=== PATIENT | female | born 1965 | race Caucasian/White ===

== ENCOUNTER 2020-11-14 11:28 | Outpatient (REF) | payer MEDICARE, MEDICAID, SELFPAY ==
[2020-11-14 14:53] LABS: Creatinine Urine 208.64 mg/dL; Protein/Creatinine Ratio, Ur 0.16 (<0.2); Total Protein Urine Random 34 mg/dL (<12)
[2020-11-14 14:54] LABS: Creatinine Urine 205.11 mg/dL; Microalbum/Creatinine Ratio Ur 49.2 ug/mg cr
[2020-11-14 17:03] LABS: Anion Gap 14 (12-20); Blood Urea Nitrogen 15 mg/dL (9-16); Calcium 9.2 mg/dL (8.4-10.2); Carbon Dioxide 29 mmol/L (22-29); Chloride 100 mmol/L (96-108); Estimated Glomerular Filt Rate > 60; Phosphorus 3.8 mg/dL (2.7-4.5); Potassium 4.3 mmol/L (3.3-5.1); Sodium 139 mmol/L (135-145)
[2020-11-14 17:52] LABS: Renal w Reflex Lab Use Only Order verified
== END 2020-11-14 11:29 | disposition home or self-care (01) ==
LOC: HO.HMGCLDS 11:28
PROVIDERS: Visit Provider Internal Medicine Nephrology
DX: I10 Essential (primary) hypertension (principal); F17.200 Nicotine dependence, unspecified, uncomplicated
CPT/HCPCS: 36415; 80051; 82043; 82310; 82565; 84100; 84156; 84520

== ENCOUNTER 2021-05-05 12:44 | Outpatient (REF) | payer MEDICARE, MEDICAID, SELFPAY ==
[2021-05-05 14:14] LABS: Anion Gap 10 (12-20); Blood Urea Nitrogen 16 mg/dL (9-16); Calcium 9.4 mg/dL (8.4-10.2); Carbon Dioxide 32 mmol/L (22-29); Chloride 101 mmol/L (96-108); Estimated Glomerular Filt Rate > 60; Potassium 4.1 mmol/L (3.3-5.1); Sodium 139 mmol/L (135-145)
== END 2021-05-05 12:45 | disposition home or self-care (01) ==
LOC: HO.HMGCLDS 12:44
PROVIDERS: PCP Family Medicine; Visit Provider Internal Medicine Nephrology
DX: I10 Essential (primary) hypertension (principal)
CPT/HCPCS: 36415; 80051; 82310; 82565; 84520

== ENCOUNTER 2022-02-18 14:15 | Outpatient (REF) | payer MEDICARE, MEDICAID, SELFPAY ==
[2022-02-18 16:46] LABS: Anion Gap 13 (12-20); Blood Urea Nitrogen 15 mg/dL (9-16); Calcium 9.5 mg/dL (8.4-10.2); Carbon Dioxide 27 mmol/L (22-29); Chloride 103 mmol/L (96-108); Estimated Glomerular Filt Rate > 60; Potassium 4.2 mmol/L (3.3-5.1); Sodium 139 mmol/L (135-145)
[2022-02-18 17:24] LABS: Creatinine Urine 55.28 mg/dL; Total Protein Urine Random < 7 mg/dL (<12)
== END 2022-02-18 14:16 | disposition home or self-care (01) ==
LOC: HO.HMGCLDS 14:15
PROVIDERS: PCP Family Medicine; Visit Provider Internal Medicine Nephrology
DX: I10 Essential (primary) hypertension (principal)
CPT/HCPCS: 36415; 80051; 82310; 82565; 84156; 84520

== ENCOUNTER 2022-09-14 13:33 | Outpatient (REF) | payer MEDICARE, MEDICAID, SELFPAY ==
[2022-09-14 16:41] LABS: Anion Gap 14 (12-20); Blood Urea Nitrogen 13 mg/dL (9-16); Calcium 9.5 mg/dL (8.4-10.2); Carbon Dioxide 28 mmol/L (22-29); Chloride 102 mmol/L (96-108); Estimated Glomerular Filt Rate > 60; Potassium 4.3 mmol/L (3.3-5.1); Sodium 140 mmol/L (135-145)
== END 2022-09-14 13:34 | disposition home or self-care (01) ==
LOC: HO.HMGCLDS 13:33
PROVIDERS: Visit Provider Internal Medicine Nephrology
DX: I10 Essential (primary) hypertension (principal)
CPT/HCPCS: 36415; 80051; 82310; 82565; 84520

== ENCOUNTER 2022-12-29 12:04 | Day surgery (SDC) | payer MEDICARE, MEDICAID, SELFPAY ==
--- NOTE | 2022-12-28 14:08 | HO.ANESPROP2 ---
Documented by User: Dagmar Cabello NP 12/28/22 14:16 HPI - Anesthesia Eval Consult details Narrative: 57yo F for Upper End[facility] Past Medical History Medical History (Updated 12/28/22 @ 14:10 by Dagmar Cabello NP) Back pain Bipolar disorder CVA (cerebral vascular accident) HTN (hypertension) Migraines Opioid dependence Seasonal allergies Surgical History Surgical History H/O colonoscopy (~2018) Social History Social History Patient Tobacco Use Status: Current everyday Tobacco user Cigarette Packs Per Day: 1 Cigarettes Per Day: 7 Years Smoked: 48 Use of substances other than those prescribed or required for medical reasons: No Are you DNR?: No Advance Directives: No Advance Directives Information Provided: Yes Meds Allergies Allergy/AdvReac Type Severity Reaction Status Date / Time No Known Allergies Allergy Unverified 06/26/20 16:01 [No Known Allergies*] Home Medications Medication Instructions Recorded Confirmed Last Taken Type atorvastatin 80 mg tablet 1 tab PO DAILY 12/28/22 12/28/22 Unknown History mmfbnhtgas-pbijeiyqbhhno-bbyzcfkj 1 cap Q4H 12/28/22 12/28/22 Unknown History 50 mg-325 mg-40 mg capsule diazepam 5 mg tablet 1 tab PO BID PRN Anxiety 12/28/22 12/28/22 Unknown History fluoxetine 20 mg capsule 1 cap PO DAILY 12/28/22 12/28/22 Unknown History fluticasone propionate 50 spray intranasal 12/28/22 12/28/22 Unknown History mcg/actuation nasal spray,suspension gabapentin 300 mg capsule 300 mg PO TID 12/28/22 12/28/22 Unknown History labetalol 200 mg tablet 1 tab PO BID 12/28/22 12/28/22 Unknown History loratadine 10 mg tablet 1 tab PO DAILY 12/28/22 12/28/22 Unknown History spironolactone 25 mg tablet 1 tab PO DAILY 12/28/22 12/28/22 Unknown History Exam Exam Date and Time: December 28, 2022 1409 Assessment and Plan Assessment Anesthesia Assessment: Chart Reviewed Documented by User: Yuly Carrillo MD 12/29/22 14:11 [facility] Past Medical History Medical History (Updated 12/28/22 @ 14:10 by Dagmar Cabello NP) Back pain Bipolar disorder CVA (cerebral vascular accident) HTN (hypertension) Migraines Opioid dependence Seasonal allergies Family History Family history of problems with anesthesia: No Surgical History Surgical History H/O colonoscopy (~2018) History of Problems with Anesthesia: No Social History Social History Patient Tobacco Use Status: Current everyday Tobacco user Cigarette Packs Per Day: 1 Cigarettes Per Day: 7 Years Smoked: 48 Use of substances other than those prescribed or required for medical reasons: No Are you DNR?: No Advance Directives: No Advance Directives Information Provided: Yes Meds Allergies Allergy/AdvReac Type Severity Reaction Status Date / Time No Known Allergies Allergy Unverified 06/26/20 16:01 [No Known Allergies*] Home Medications Medication Instructions Recorded Confirmed Last Taken Type atorvastatin 80 mg tablet 1 tab PO DAILY 12/28/22 12/28/22 Unknown History jpscfoxsff-iazobvwokvvzq-kxxmnzns 1 cap Q4H 12/28/22 12/28/22 Unknown History 50 mg-325 mg-40 mg capsule diazepam 5 mg tablet 1 tab PO BID PRN Anxiety 12/28/22 12/28/22 Unknown History fluoxetine 20 mg capsule 1 cap PO DAILY 12/28/22 12/28/22 Unknown History fluticasone propionate 50 spray intranasal 12/28/22 12/28/22 Unknown History mcg/actuation nasal spray,suspension gabapentin 300 mg capsule 300 mg PO TID 12/28/22 12/28/22 Unknown History labetalol 200 mg tablet 1 tab PO BID 12/28/22 12/28/22 Unknown History loratadine 10 mg tablet 1 tab PO DAILY 12/28/22 12/28/22 Unknown History spironolactone 25 mg tablet 1 tab PO DAILY 12/28/22 12/28/22 Unknown History Exam Airway Mallampati Class: II TM Dist: >3cm Neck ROM: Full Denture: Upper Heart: rr Lungs: cta Assessment and Plan Assessment Anesthesia Assessment: Anesthesia Plan Discussed Final Anesthetic Review Family History of Problems with Anesthesia: No History of Problems with Anesthesia: No NPO: Yes ASA Class: II Final Preanesthetic Review: No Changes in Pt Med Stat, Meds/Allgs Chart Reviewed, Consent Obtained/Reviewed and Anes Risks/Benef Reviewed Patient Risk: Low Procedure Risk: Low Anesthetic Plan Anesthetic Plan: MAC: Disposition: Standard PACU
[2022-12-29 12:47] VITALS: BMI 21.1
[2022-12-29 12:51] VITALS: BP 145/84; PULSE 85; RESP 16; TEMP 36.5; O2SAT 96
[2022-12-29] MEDS: Lactated Ringers 1,000 ML 100 ML IVCONT (13:01)
--- NOTE | 2022-12-29 13:05 | MHC.SHP ---
Pre-Procedural Eval Section A Date of Service: 12/29/22 The patient is an INPATIENT: No Changes since office visit: No Cold of Flu in the past 2 weeks, No New Medical Problems, No Changes in Medication and No Patient answered all questions The History & Physical has been completed within 30 days and I have reviewed it.: Yes Section B Chief Complaint: Epigastric pain,reflux Allergies: Allergies Allergy/AdvReac Type Severity Reaction Status Date / Time No Known Allergies Allergy Unverified 06/26/20 16:01 [No Known Allergies*] Plan I have reviewed the history and physical and performed a pertinent physical examination on my patient. No changes have occurred unless specified. Time Spent With Patient Time: Total time managing care of this patient today ____ minutes.
[2022-12-29 13:30] VITALS: BP 129/73; PULSE 85; RESP 22; TEMP 36.4
[2022-12-29 13:45] VITALS: BP 152/73; PULSE 72; RESP 20; TEMP 36.4; O2SAT 99
--- NOTE | 2022-12-30 00:20 | OP_ITS ---
DATE OF SERVICE: 12/29/2022 SURGEON: Lalo Mcgarry MD INDICATIONS: Epigastric pain and gastroesophageal reflux disease. PREOPERATIVE DIAGNOSIS: POSTOPERATIVE DIAGNOSIS: PROCEDURE PERFORMED: Upper endoscopy with biopsy. ESTIMATED BLOOD LOSS: COMPLICATIONS: ANESTHESIA: Monitored anesthesia care. ASSISTANTS: SPECIMENS: DESCRIPTION OF PROCEDURE: A history and physical was performed. The procedure was performed on 12/29/2022. The risks and benefits of the procedure were explained to the patient. Informed consent was obtained. The patient was placed in the left lateral decubitus position. The Olympus video gastroscope was introduced into the esophagus, stomach, and duodenum. Examination was performed. The scope was removed. She tolerated the procedure well and was returned to the recovery area in stable condition. FINDINGS: Esophagus: The esophagus was normal. There was no esophagitis. Biopsies were obtained from the EG junction. There was a small sliding hiatal hernia. Stomach: The stomach showed linear streaks of erythema consistent with gastritis. Biopsies were obtained from the antrum. Duodenum: There was mild duodenitis involving the 2nd portion. Biopsies were obtained from the 2nd portion. IMPRESSION: Gastritis. RECOMMENDATION: Follow up the biopsy results. MD BABITA Silveira/YEYO / [id number]
== END 2022-12-29 15:39 | disposition home or self-care (01) ==
PROVIDERS: PCP Family Medicine; Visit Provider Internal Medicine Gastroenterology
PROC: 0DJ08ZZ Inspection of Upper Intestinal Tract, Via Natural or Artificial Opening Endoscopic (ICD-10-PCS; CPT 43235; principal; 2022-12-29 13:00)
DX: K21.9 Gastro-esophageal reflux disease without esophagitis (principal); K29.50 Unspecified chronic gastritis without bleeding; K44.9 Diaphragmatic hernia without obstruction or gangrene; I10 Essential (primary) hypertension; F31.9 Bipolar disorder, unspecified; F11.20 Opioid dependence, uncomplicated; J30.2 Other seasonal allergic rhinitis; Z79.51 Long term (current) use of inhaled steroids; Z79.899 Other long term (current) drug therapy; Z86.73 Personal history of transient ischemic attack (TIA), and cerebral infarction without residual deficits; F17.210 Nicotine dependence, cigarettes, uncomplicated
CPT/HCPCS: 43239; 88305; J2250

== ENCOUNTER 2023-05-25 11:06 | Outpatient (REF) | payer MEDICARE, MEDICAID, SELFPAY ==
[2023-05-25 13:40] LABS: Anion Gap 13 (12-20); Blood Urea Nitrogen 14 mg/dL (9-16); Calcium 9.2 mg/dL (8.4-10.2); Carbon Dioxide 27 mmol/L (22-29); Chloride 104 mmol/L (96-108); Estimated Glomerular Filt Rate > 60; Sodium 140 mmol/L (135-145)
== END 2023-05-25 11:07 | disposition home or self-care (01) ==
LOC: HO.HMGCLDS 11:06
PROVIDERS: PCP Family Medicine; Visit Provider Internal Medicine Nephrology
DX: I10 Essential (primary) hypertension (principal)
CPT/HCPCS: 36415; 80051; 82310; 82565; 84520

== ENCOUNTER 2023-10-31 13:23 | Outpatient (REF) | payer MEDICARE, MEDICAID, SELFPAY ==
[2023-10-31 16:40] LABS: Anion Gap 16 (12-20); Blood Urea Nitrogen 12 mg/dL (9-16); Carbon Dioxide 27 mmol/L (22-29); Chloride 102 mmol/L (96-108); Estimated Glomerular Filt Rate > 60; Potassium 3.8 mmol/L (3.3-5.1); Sodium 141 mmol/L (135-145)
== END 2023-10-31 13:24 | disposition home or self-care (01) ==
LOC: HO.HMGCLDS 13:23
PROVIDERS: PCP Family Medicine; Visit Provider Internal Medicine Nephrology
DX: I10 Essential (primary) hypertension (principal)
CPT/HCPCS: 36415; 80051; 82565; 84520

== ENCOUNTER 2023-11-03 09:48 | Emergency (ER) | payer MEDICARE, MEDICAID, SELFPAY ==
--- NOTE | ~2023-11-03 | US_ITS ---
EXAMINATION: US VENOUS ULTRASOUND WITH DOPPLER LOWER EXTREMITY, LEFT CLINICAL INFORMATION: Left leg pain and swelling. COMPARISON: None available. TECHNIQUE: Ultrasound of the deep veins is performed from the hip to the calf with compression sonography and color and pulse Doppler assessment. Spectral analysis with color-flow imaging is performed. FINDINGS: There is normal venous compression and respiratory variation and augmented flow. The visualized common femoral vein, superficial femoral vein, profunda femoral vein, popliteal vein, and the trifurcation region shows no evidence of deep venous thrombosis. If the patient's symptoms persist, followup ultrasound in 5 days 7 days might be of value to exclude proximal propagation from a non-visualized calf vein. US/US venous duplex LE IMPRESSION: No DVT demonstrated in the left lower extremity.
--- NOTE | ~2023-11-03 | US_ITS ---
EXAMINATION: US ARTERIAL DUPLEX LEFT LOWER EXTREMITY CLINICAL INFORMATION: Groin pain COMPARISON: No relevant comparison imaging exams available. TECHNIQUE: Grayscale and duplex Doppler imaging with spectral waveform analysis of left lower extremity arteries is performed. FINDINGS: There is atherosclerotic plaque along the wall of the femoral artery. Common femoral artery has only above baseline monophasic flow pattern, peak systolic velocity of 60 cm/s. This suggests that there is likely hemodynamically significant disease in the iliac vessels above. Profunda femoris artery also demonstrates only above baseline monophasic flow pattern, peak velocity of 75 cm/s. SFA is occluded within the proximal thigh (for example, images 8-9 of 40). The SFA remains occluded in the mid and lower thigh. Proximal to the level of the knee, there is mild reconstitution of flow within the distal SFA with observation of abnormal monophasic flow, peak velocity of 27 cm/s. A collateral vessel supplying this area is visualized. Popliteal artery is occluded proximally, is patent distally, but has severely abnormal monophasic flow. Below the level of the knee, the posterior tibial artery has monophasic, tardus-parvus waveform with peak velocities of 15 cm/s in the proximal leg, 14 cm/s in the mid leg and 9 cm/s in the distal leg. Peroneal artery has severely abnormal monophasic flow, peak velocity of 24 cm/s, 15 cm/s and 10 cm/s in the proximal, mid and distal leg, respectively. US/US arterial duplex LE LT IMPRESSION: There is severe atherosclerotic peripheral vascular disease. Abnormal arterial waveforms are seen throughout the examined extremity, as noted above. The left SFA is occluded in the proximal, mid and distal thigh, although there is some reconstitution of flow in the distal SFA. However, popliteal artery is occluded proximally. Severely abnormal monophasic waveforms with tardus parvus flow detected within posterior tibial and peroneal arteries.
--- NOTE | ~2023-11-03 | XR_ITS ---
EXAMINATION: XR HIP, LEFT CLINICAL INFORMATION: Left groin tenderness COMPARISON: None available. TECHNIQUE: Two views of the left hip and single view of the pelvis. FINDINGS: The right hemipelvis is obscured by medical research scientist projecting over the sacroiliac joint. No fracture. Alignment is anatomic. Hip joint space is maintained. Soft tissues are unremarkable. XR/XR hip LT w PEL1V IMPRESSION: Normal left hip.
[2023-11-03 10:22] VITALS: BP 142/78; PULSE 88; RESP 20; TEMP 37.1; O2SAT 98; BMI 20.8
--- NOTE | 2023-11-03 11:55 | ED.GENADULT ---
HPI - General Adult General Chief complaint: Extremity Injury, Lower Stated complaint: l leg pain swelling quest dvt Time Seen by Provider: 11/03/23 11:33 Source: patient Mode of arrival: ambulatory Limitations: no limitations History of Present Illness HPI narrative: Patient is a 58-year-old female with history of CVA with right-sided deficit presenting to the emergency department with complaint of left groin pain which began suddenly overnight. Patient reports that she attempted to get out of bed in the middle of the night to use the bathroom and was unable to bear weight on her left leg due to the pain. She denies anticoagulation. Reports history of vein stripping in right lower leg in 1993. Feels as though left thigh has swelling. Denies numbness/tingling. Denies fall or other trauma. Of note patient was recently changed from Prozac which she was on for over 20 years to Cymbalta on September 28. She reports GI symptoms related to this, is unsure if this is related to her groin pain. MD complaint: groin pain Onset (ago): hour(s) Location: left Radiation: non-radiation Severity: severe Quality: aching Pain Consistency: constant Relieving factors: rest Exacerbating factors: movement Associated symptoms: denies other symptoms Treatments prior to arrival: other (morphine) Related Data Home Medications Medication Instructions Recorded Confirmed atorvastatin 80 mg tablet 1 tab PO DAILY 12/28/22 12/28/22 lxzfpbufjz-hxfsfmuwpvqeq-wiuhfxwg 1 cap Q4H 12/28/22 12/28/22 50 mg-325 mg-40 mg capsule diazepam 5 mg tablet 1 tab PO BID PRN Anxiety 12/28/22 12/28/22 fluoxetine 20 mg capsule 1 cap PO DAILY 12/28/22 12/28/22 fluticasone propionate 50 spray intranasal 12/28/22 12/28/22 mcg/actuation nasal spray,suspension gabapentin 300 mg capsule 300 mg PO TID 12/28/22 12/28/22 labetalol 200 mg tablet 1 tab PO BID 12/28/22 12/28/22 loratadine 10 mg tablet 1 tab PO DAILY 12/28/22 12/28/22 spironolactone 25 mg tablet 1 tab PO DAILY 12/28/22 12/28/22 Allergies Allergy/AdvReac Type Severity Reaction Status Date / Time No Known Allergies Allergy Verified 11/03/23 10:26 [No Known Allergies*] Review of Systems Review of Systems: As per HPI. Yes all other systems are reviewed and are negative Constitutional: Constitutional: Reports as per HPI [facility] Past Medical History Medical History (Updated 11/03/23 @ 15:32 by Sanna Crouch NP) Bipolar disorder CVA (cerebral vascular accident) Back pain Seasonal allergies Migraines Opioid dependence HTN (hypertension) Surgical History H/O colonoscopy (~2018) Social History Social History Patient Tobacco Use Status: Current everyday Tobacco user Cigarette Packs Per Day: 1 Cigarettes Per Day: 7 Years Smoked: 48 Advance Directives: No Physical Exam ED Vital Signs: Vital Signs - 24 hr 11/03/23 10:22 11/03/23 12:00 11/03/23 14:00 Temperature 98.8 F 97.7 F 98.2 F Pulse Rate 88 80 89 Respiratory Rate 20 17 16 Blood Pressure 142/78 H 154/94 H 153/91 H Pulse Oximetry 98 100 98 Oxygen Delivery Method Room Air Room Air Room Air BMI result Body Mass Index 20.8 Vital signs have been reviewed and appear to be correct. Blood pressure normal. Heart rate normal. Respiratory rate normal. Temperature normal. Oxygen saturation normal. Const General: cooperative, healthy appearing and no acute distress Orientation/consciousness: oriented to person, oriented to place, oriented to time and patient oriented x3 Limitations: no limitations [facility] Head: Yes normocephalic and Yes atraumatic Ears: external ears normal General nose exam: Normal external nose present Face and sinus: Yes face symmetric Mouth: oropharynx normal and moist mucous membranes Throat: Yes uvula midline Eyes Pupils: Equal, round and reactive pupils present Neck Neck: Yes normal visual inspection and Yes supple Resp Effort & Inspection: normal respiratory effort and able to speak in complete sentences Auscultation: clear to auscultation bilaterally Cardio Rate: regular rate Rhythm: regular rhythm Heart sounds: S1 normal heart sound present and S2 normal heart sound present GI Other: 2+ femoral pulses Inspection: Yes normal to inspection and No visible herniation Palpation (GI): Soft to palpation, nontender, no hernias and no masses Auscultation: normoactive bowel sounds Abdomen image: 1. tenderness, no mass, erythema, warmth, 2+ femoral pulse General: Yes no CVA tenderness Back/Spine/Pelvis Back: no CVA tenderness Skin General skin exam: elasticity normal and turgor normal Neuro General: oriented to person, oriented to place, oriented to time, patient oriented x3, tone normal, moves all extremities, Normal light touch and pain sensation, no focal motor deficits, CN's II-XI intact bilaterally and deep tendon reflexes 2+ bilaterally Cranial nerves: Yes Equal, round and reactive pupils present Cognition (Neuro): normal cognition Motor exam (neuro): 5/5 motor strength present throughout, Normal motor muscle tone present throughout and Motor abnormalities not present Extrem General: Yes full ROM, Yes no pedal edema and Yes no calf tenderness Left lower extremity: hip/thigh (no swelling noted to left thigh) Details: normal to inspection and normal ROM and foot Details: vascular exam Details: dorsalis pedis pulse present and posterior tibial pulse present Psych Mental Status: mental status grossly normal Affect: normal affect Thought process: Normal thought process present Medical Decision Making Medical Decision Making [facility] Narrative: Patient is a 58-year-old female with history of CVA with right-sided deficit presenting to the emergency department with complaint of left groin pain which began suddenly overnight. On exam patient is awake, A+Ox3, VS WNL, afebrile, normal neurological exam without focal deficits, physical exam findings as above. Patient noted to be standing in room and was able to ambulate to bathroom. Given reported symptoms and physical exam findings, initial differential includes hip strain, DVT, hip fracture. Labs notable for anemia not at transfusion level, no significant electrolyte abnormalities. Ultrasound notable for no DVT, severe atherosclerotic peripheral vascular disease. No evidence of fracture on x-ray. My interpretation is in agreement with the radiologist's interpretation. Case discussed with Dr. Glass who feels ultrasound findings are chronic and does not feel patient requires any acute treatment today. Will refer patient to Dr. Glass for further outpatient management. Return precautions discussed at bedside. Patient and family verbalized understanding of and agreement with plan. Differential Diagnosis Differential Diagnoses: The differential diagnosis associated with the presentation includes as per [facility] Lab Data [facility] Lab Attestation statement: I reviewed the patient's lab results. As per [facility]. 11/03/23 12:11 11/03/23 12:11 Labs: Lab Results 11/03/23 Range/Units 12:11 WBC 6.3 (4.8-10.8) X10*3/uL RBC 4.65 (4.20-5.50) X10*6/uL Hgb 10.4 L (12.0-16.0) g/dl Hct 35.2 L (37.0-47.0) % MCV 75.7 L (80.0-98.0) fL MCH 22.4 L (27.0-33.0) pg MCHC 29.5 L (31.0-35.0) g/dl RDW 17.6 H (11.0-16.0) % Plt Count 224 (160-400) X10*3/uL MPV 9.0 L (9.4-12.3) fL Immature Gran % (Auto) 0.2 (0.0-0.4) % Neut % (Auto) 70.5 (45-73) % Lymph % (Auto) 18.0 L (20-40) % [place] % (Auto) 9.4 (2-11) % Eos % (Auto) 1.1 (0-4) % Baso % (Auto) 0.8 (0-2) % Lymph # (Auto) 1.1 L (1.2-4.9) X10*3/uL [place] # (Auto) 0.6 (0.1-1.2) X10*3/uL Eos # (Auto) 0.1 (0.0-0.4) X10*3/uL Baso # (Auto) 0.1 (0.0-0.2) X10*3/uL Abs Immat Gran (auto) 0.01 (0.00-0.03) X10*3/uL Absolute Neuts (auto) 4.4 (2.0-8.3) x10*3/uL Absolute Nucleated RBC 0.000 (0.0-0.012) X10*3/uL Nucleated RBC % (auto) 0.0 (0.0-0.2) /100WBC PT 11.2 (11.1-13.3) SEC INR 0.9 (0.9-1.1) Sodium 140 (135-145) mmol/L Potassium 4.0 (3.3-5.1) mmol/L Chloride 103 (96-108) mmol/L Carbon Dioxide 30 H (22-29) mmol/L Anion Gap 11 L (12-20) BUN 15 (9-16) mg/dL Creatinine 0.80 (0.5-1.4) mg/dL Estim Creat Clear Calc 69.0 Estimated GFR > 60 Random Glucose 90 (60-115) mg/dL Calcium 10.1 D (8.4-10.2) mg/dL Total Bilirubin 0.4 (0.0-1.0) mg/dL AST 20 (5-31) U/L ALT 15 (0-31) U/L Alkaline Phosphatase 158 H (39-117) U/L Total Protein 7.5 (6.5-8.0) g/dL Albumin 4.7 (3.5-5.0) g/dL Independent Interpretation I performed an independent interpretation of an: Plain X-Ray and Ultrasound Interpretation: No evidence of DVT, severe athrosclerotic peripheral vascular disease No hip fracture Radiology Impression Discussion of test interpretation with radiology: I have reviewed the radiologist's reading. Radiologist Impression: XR/XR hip LT w PEL1V IMPRESSION: Normal left hip. US/US venous duplex LE LT IMPRESSION: No DVT demonstrated in the left lower extremity. US/US arterial duplex LE LT IMPRESSION: There is severe atherosclerotic peripheral vascular disease. Abnormal arterial waveforms are seen throughout the examined extremity, as noted above. The left SFA is occluded in the proximal, mid and distal thigh, although there is some reconstitution of flow in the distal SFA. However, popliteal artery is occluded proximally. Severely abnormal monophasic waveforms with tardus parvus flow detected within posterior tibial and peroneal arteries. External Record Review External record reviewed: Inpatient record, Office record and Outpatient record Discharge Plan Discharge Clinical Impression: Peripheral vascular disease Patient Disposition: Home, Self-Care Instructions: Peripheral Vascular Disease (ED) Additional Instructions: You were evaluated in the emergency department for left groin pain. Your ultrasound showed evidence of peripheral vascular disease. You are being referred to the Vascular surgeon, please call the office to schedule an appointment. Return to the emergency department if you develop increasing pain, new weakness, numbness, tingling to her leg, change of color in your leg or foot, chest pain, shortness of breath or any other concerning symptoms. Prescriptions: No Action hmpupwesbv-fmdjomjhdcztf-govj 50-325-40 mg Capsule 1 cap Q4H atorvastatin 80 mg tablet 1 tab PO DAILY labetalol 200 mg tablet 1 tab PO BID spironolactone 25 mg tablet 1 tab PO DAILY gabapentin 300 mg Capsule 300 mg PO TID fluoxetine 20 mg capsule 1 cap PO DAILY fluticasone propionate 50 mcg/actuation spray,suspension intranasal loratadine 10 mg tablet 1 tab PO DAILY diazepam 5 mg tablet 1 tab PO BID PRN (Reason: Anxiety) Referrals: Antony Glass MD [Physician] -
[2023-11-03 12:00] VITALS: BP 154/94; PULSE 80; RESP 17; TEMP 36.5; O2SAT 100
[2023-11-03 12:17] LABS: MANUAL DIFF FLAG NO
[2023-11-03 12:19] LABS: Basophils Absolute Auto 0.1 X10*3/uL (0.0-0.2); Basophils Percent Auto 0.8 % (0-2); Eosinophils Absolute Auto 0.1 X10*3/uL (0.0-0.4); Eosinophils Percent Auto 1.1 % (0-4); Hematocrit 35.2 % (37.0-47.0); Hemoglobin 10.4 g/dl (12.0-16.0); Imm Gran Abs Auto 0.01 X10*3/uL (0.00-0.03); Imm Gran Pct Auto 0.2 % (0.0-0.4); Lymphocytes Absolute Auto 1.1 X10*3/uL (1.2-4.9); Mean Corpuscular HGB Conc 29.5 g/dl (31.0-35.0); Mean Corpuscular Hemoglobin 22.4 pg (27.0-33.0); Mean Corpuscular Volume 75.7 fL (80.0-98.0); Monocytes Absolute Auto 0.6 X10*3/uL (0.1-1.2); Monocytes Percent Auto 9.4 % (2-11); Neutrophils Absolute Auto 4.4 x10*3/uL (2.0-8.3); Neutrophils Percent Auto 70.5 % (45-73); Platelet Count 224 X10*3/uL (160-400); Red Blood Count 4.65 X10*6/uL (4.20-5.50); Red Cell Distribution Width 17.6 % (11.0-16.0); White Blood Count 6.3 X10*3/uL (4.8-10.8)
[2023-11-03 12:25] LABS: INTERNATIONAL NORM RATIO 0.9 (0.9-1.1); Prothrombin Time 11.2 SEC (11.1-13.3)
[2023-11-03 12:35] LABS: Alanine Aminotransferase 15 U/L (0-31); Albumin Level 4.7 g/dL (3.5-5.0); Alkaline Phosphatase 158 U/L (39-117); Anion Gap 11 (12-20); Aspartate Amino Transferase 20 U/L (5-31); Bilirubin Total 0.4 mg/dL (0.0-1.0); Blood Urea Nitrogen 15 mg/dL (9-16); Calcium 10.1 mg/dL (8.4-10.2); Carbon Dioxide 30 mmol/L (22-29); Chloride 103 mmol/L (96-108); Estimated Glomerular Filt Rate > 60; Glucose Random 90 mg/dL (60-115); Sodium 140 mmol/L (135-145); Total Protein 7.5 g/dL (6.5-8.0)
[2023-11-03 14:00] VITALS: BP 153/91; PULSE 89; RESP 16; TEMP 36.8; O2SAT 98
[2023-11-03 15:56] VITALS: BP 135/90; PULSE 78; RESP 16; TEMP 36.6; O2SAT 97
== END 2023-11-03 15:59 | disposition home or self-care (01) ==
PROVIDERS: Registered Nurse Emergency; Emergency Provider Emergency Medicine; PCP Family Medicine
DX: R60.0 Localized edema (principal); R10.2 Pelvic and perineal pain; Z86.73 Personal history of transient ischemic attack (TIA), and cerebral infarction without residual deficits; Z79.899 Other long term (current) drug therapy
CPT/HCPCS: 36415; 73502; 80053; 85025; 85610; 93926; 93971; 99284

== ENCOUNTER 2023-11-15 10:52 | Outpatient (AMB) | payer MEDICARE, MEDICAID, SELFPAY ==
[2023-11-15 10:59] VITALS: BMI 20.8
--- NOTE | 2023-11-15 10:59 | MHC.OFFVIS ---
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 Hx of stroke in 2020, lost Right sided function. 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 She actually presented to our emergency room with left-sided leg pain. It had gotten significantly worse over the last year or so. She does have a prior history of a CVA with right-sided deficit. In addition she has lower back pain issues and reports a cyst on her spine as well. At the time of her visit in the ER she had noninvasive arterial testing and was found to have significant peripheral vascular disease. She now presents to us for evaluation. Of note she smokes about a half a pack per day. Prior to that it was up to a pack a day and has been smoking since the age of 10. In addition she is a nondiabetic. She now presents to us for vascular evaluation. Also of note she can walk about a half block at most. [facility] Medical History Bipolar disorder CVA (cerebral vascular accident) Back pain Seasonal allergies Migraines Opioid dependence HTN (hypertension) Surgical History H/O colonoscopy (~2019) Social History Patient Tobacco Use Status: Current everyday Tobacco user Cigarette Packs Per Day: 1 Cigarettes Per Day: 7 Years Smoked: 48 Review of Systems Const All systems reviewed & are unremarkable except as noted in HPI and below Reports no additional complaints ENT Reports Normal hearing present Card Denies chest pain, Denies chest pain at rest, Denies chest pain with activity and Denies pedal edema Resp Denies cough GI Denies abdominal pain Musc Denies abnormal gait, Denies muscle cramps and Denies radiating pain into limb Skin/Breast Denies skin ulcer and Denies wounds Neuro Reports Normal hearing present and Denies abnormal gait Psych Reports no additional complaints Physical Exam Vital Signs: BMI result Body Mass Index 20.8 Const General: cooperative, healthy appearing and comfortable Orientation/consciousness: oriented to person, oriented to place and oriented to time HEENT Head: Yes normal to inspection Neck Neck: Yes normal visual inspection Carotids: no bruits Chest Chest palpation & inspection: normal inspection of the chest Resp Effort & Inspection: normal respiratory effort and able to speak in complete sentences Auscultation: clear to auscultation bilaterally, no crackles, no rales, no rhonchi and no wheezes Cardio Rate: regular rate Rhythm: regular rhythm Heart sounds: S1 normal heart sound present and S2 normal heart sound present Bruits: no carotid bruits Peripheral pulses: Peripheral pulses 2+ throughout GI Inspection: Yes normal to inspection Skin Wounds: no wounds Hair: normal Neuro General: oriented to person, oriented to place and oriented to time Cranial nerves: Yes CN's II-XII intact bilaterally and Yes Normal hearing present Cognition (Neuro): normal cognition Motor exam (neuro): 5/5 motor strength present throughout Extrem Other: venous exam: No significant superficial varicosities or spider telangiectasias, minimal edema General: No clubbing, No cyanosis and No edema Psych Appearance: grossly normal Mental Status: mental status grossly normal Speech and movement: Normal speech and movement present Results Reviewed Results Reviewed: Noninvasive arterial testing dated 11/03/2023 demonstrates left-sided SFA occlusion with reconstitution at the popliteal artery. Severely abnormal monophasic waveforms. Written report and images were reviewed. Assessment & Plan Assessment & Plan (1) PAD (peripheral artery disease): Code(s): I73.9 - Peripheral vascular disease, unspecified Plan: Patient notes leg pain when walking distances. I have discussed the pathophysiology of peripheral vascular disease with the patient. I have also discussed risk factor modification. I have reviewed the patient's arterial testing which reveals left SFA disease. the patient would benefit from a left leg endovascular peripheral angiogram with possible angioplasty, stent, and/or atherectomy. This has been discussed in detail with the patient along with risks, benefits, and complications. This includes but is not limited to bleeding, infection, heart attack, need for emergent surgical repair, limb ischemia, blood vessel damage, bleeding, puncture, kidney injury, bruising, allergic reaction, and skin reaction. The patient demonstrates a clear understanding. We will schedule for the next appropriate time. Thank you for allowing us to assist in this patient's care. Coding Level of Care Code New Pt Level 4 (73400) Diagnoses PAD (peripheral artery disease) I73.9
== END 2023-11-15 12:04 | disposition home or self-care (01) ==
PROVIDERS: PCP Family Medicine; Visit Provider Surgery Vascular Surgery
DX: I73.9 Peripheral vascular disease, unspecified (principal)
CPT/HCPCS: 99204

== ENCOUNTER → 2023-11-15 10:52 | Outpatient (BNVA) | payer MEDICARE, MEDICAID, SELFPAY | PROVIDERS: PCP Family Medicine; Visit Provider Surgery Vascular Surgery | DX: I73.9 Peripheral vascular disease, unspecified (principal) | CPT/HCPCS: 99202 ==

== ENCOUNTER 2023-11-16 07:39 | Day surgery (SDC) | payer MEDICARE, MEDICAID, SELFPAY ==
[2023-11-16] VITALS (9 sets, daily range): BP systolic 148–172; BP diastolic 76–89; PULSE 70–79; RESP 14–16; TEMP 36.4–36.8; O2SAT 98–100; BMI 20.7
--- NOTE | 2023-11-16 11:09 | W.PM.OPN ---
Operative Note Operative Note Date of Service: 11/16/23 Narrative: Angiogram report from [facility] Preoperative diagnosis: Atherosclerosis of left lower extremity with activity limiting claudication Postoperative diagnosis: Same Procedure: 1. Ultrasound-guided right common femoral access 2. Aortogram with left lower extremity runoff 3. Left external iliac stent Surgeon:Antony Glass M.D., FACS, RPVI Associate Director Data & Analytics:None Anesthesia: Local with moderate conscious sedation. Total intraservice moderate sedation time was 36 minutes. I monitored the patient's level of consciousness and physiologic status continuously throughout the procedure. Specimens:none Drains:none Estimated blood loss: Less than 10 ml Implant: Medtronic visi Pro 8 x 17 balloon expandable stent Indications: 58-year-old with significant left leg pain. Upon workup in the emergency room was noted to have significant arterial occlusion. She now presents for endovascular intervention of the left lower extremity. The patient has signed the informed consent after reviewing risks, complications, benefits, and alternatives previously discussed with the patient. The patient was given the opportunity to ask any additional questions or voice any concerns. All questions were answered to the patient's satisfaction. Procedure in detail: Patient was brought to the angiography suite prior to which a time-out was called for patient identification and site verification. Bilateral groins were prepped and draped in the standard surgical fashion. Under ultrasound guidance right common femoral was punctured with micro puncture needle and wire. Subsequently a precision 4 [place] Islander sheath was then placed. Bentson wire was advanced to the level of the aorta. 4 [place]er Flush catheter was brought up and parked at the level of the renal arteries. Aortogram was then undertaken. Catheter was brought down to the level of the iliac bifurcation. Iliacs were subsequently imaged. Catheter was then brought in up and over to the left side profundus femorals. Runoff study was then undertaken. At this time it was recognized that there was a total SFA flush occlusion. There was a highly stenotic area of the left external iliac. At this time 5000 units of systemic heparin was administered. Up and over 6 [place]er sheath was then placed. Once this was accomplished we took multiple orthogonal views. We initially plasty this area with an 8 x 20 balloon. There was residual stenosis. We then placed a visi Pro 8 x 17 balloon expandable stent. Once this was accomplished we brought the catheter back to the ipsilateral side. We exchanged out for a short 6 [place] Islander sheath. Celt 6 [place]er closure device was then deployed. Patient tolerated the procedure well. Returned to recovery with stable vitals. Interpretation of films: 1. Ultrasound demonstrates appropriate femoral puncture. Image of which was saved. 2. Aortogram demonstrates appropriate caliber aorta. Minimal disease. Appropriate take-off of the renals. 3. Iliac images demonstrate no significant disease on right, left external iliac high-grade stenosis 4. Left Leg Common femoral artery: No significant disease Profundus Femoris: No significant disease Superficial femoral artery: Flush occlusion; small reconstitution area at Isidro's canal and occludes again Popliteal artery (p1,p2,p3): Occluded Anterior tibial artery: Reconstitutes via collateral the origin is occluded Peroneal artery: Patent dominant runoff Posterior tibial artery: Patent Dorsalis pedis/plantar arch: Incomplete Conclusion: 1. Successful left external iliac plasty and stent. Will need fem to below-knee tibioperoneal trunk bypass if required 2. Anticoagulation status: Aspirin and Plavix for 6 months This note is constructed using voice recognition software. While every effort has been made to ensure accuracy, station baggage agent errors may have been included. Thank you for allowing me to participate in the care of your patient. Yours sincerely, Antony Glass MD, FACS, R.P.V.I.
[2023-11-16] MEDS: Clopidogrel Bisulfate 300 MG TABLET PO (12:17)
[2023-11-16] MEDS: Acetaminophen 325 MG TABLET 650 MG PO (12:18)
== END 2023-11-16 13:40 | disposition home or self-care (01) ==
PROVIDERS: PCP Family Medicine; Visit Provider Surgery Vascular Surgery
DX: I70.212 Atherosclerosis of native arteries of extremities with intermittent claudication, left leg (principal); I70.92 Chronic total occlusion of artery of the extremities; M79.662 Pain in left lower leg; I69.351 Hemiplegia and hemiparesis following cerebral infarction affecting right dominant side; M54.50 Low back pain, unspecified; I10 Essential (primary) hypertension; F31.9 Bipolar disorder, unspecified; G43.909 Migraine, unspecified, not intractable, without status migrainosus; J30.2 Other seasonal allergic rhinitis; Z79.51 Long term (current) use of inhaled steroids; Z79.899 Other long term (current) drug therapy; F11.20 Opioid dependence, uncomplicated; F17.210 Nicotine dependence, cigarettes, uncomplicated
CPT/HCPCS: 37221; 76937; 99152; 99153; A4364; C1725; C1760; C1769; C1876; C1887; C1894; J0360; J1644; J2250; J2310; J3010; Q9967

== ENCOUNTER → 2023-11-16 07:39 | Outpatient (BNV) | payer MEDICARE, MEDICAID, SELFPAY | PROVIDERS: PCP Family Medicine; Visit Provider Surgery Vascular Surgery | DX: I70.212 Atherosclerosis of native arteries of extremities with intermittent claudication, left leg (principal) | CPT/HCPCS: 37226; 75625; 75710; 76937; 99152 ==

== ENCOUNTER 2023-12-01 13:12 | Outpatient (AMB) | payer MEDICARE, MEDICAID, SELFPAY ==
--- NOTE | 2023-12-01 13:17 | MHC.OFFVIS ---
Intake Intake Visit Reasons: 2 week follow up Left LE angio 11/16/23 Intake Note: 2 week follow up Left LE Angio 11/16/23. Pt states Left Leg feels better minus pain in her ankle. Pt states plavix is not agreeing with her, would like to discuss w/ Accompanied by: Self / Same As Patient Allergies No Known Allergies [No Known Allergies*] Allergy (Verified 12/02/23 11:25) HPI 2 week follow up Left LE angio 11/16/23 HPI Details Very pleasant 58-year-old female presents for follow-up status post endovascular intervention. She underwent endovascular intervention on 11/16/2023. She had undergone left external iliac stent. Now has a pinpoint ulcer in the left Achilles. Now presents for routine postprocedure follow-up. [facility] Medical History Bipolar disorder CVA (cerebral vascular accident) Back pain Seasonal allergies Migraines Opioid dependence HTN (hypertension) Surgical History H/O colonoscopy (~2019) Social History Patient Tobacco Use Status: Current everyday Tobacco user Cigarette Packs Per Day: 1 Cigarettes Per Day: 7 Years Smoked: 48 Review of Systems Const All systems reviewed & are unremarkable except as noted in HPI and below Reports no additional complaints ENT Reports Normal hearing present Card Denies chest pain, Denies chest pain at rest, Denies chest pain with activity and Denies pedal edema Resp Denies cough GI Denies abdominal pain Musc Denies abnormal gait, Denies muscle cramps and Denies radiating pain into limb Skin/Breast Denies skin ulcer and Denies wounds Neuro Reports Normal hearing present and Denies abnormal gait Psych Reports no additional complaints Physical Exam Const General: cooperative, healthy appearing and comfortable Orientation/consciousness: oriented to person, oriented to place and oriented to time HEENT Head: Yes normal to inspection Neck Neck: Yes normal visual inspection Carotids: no bruits Chest Chest palpation & inspection: normal inspection of the chest Resp Effort & Inspection: normal respiratory effort and able to speak in complete sentences Auscultation: clear to auscultation bilaterally, no crackles, no rales, no rhonchi and no wheezes Cardio Rate: regular rate Rhythm: regular rhythm Heart sounds: S1 normal heart sound present and S2 normal heart sound present Bruits: no carotid bruits Peripheral pulses: Peripheral pulses 2+ throughout GI Inspection: Yes normal to inspection Skin Other: Bilateral DP signals Wounds: no wounds Hair: normal Neuro General: oriented to person, oriented to place and oriented to time Cranial nerves: Yes CN's II-XII intact bilaterally and Yes Normal hearing present Cognition (Neuro): normal cognition Motor exam (neuro): 5/5 motor strength present throughout Extrem Other: venous exam: No significant superficial varicosities or spider telangiectasias, minimal edema General: No clubbing, No cyanosis and No edema Psych Appearance: grossly normal Mental Status: mental status grossly normal Speech and movement: Normal speech and movement present Assessment & Plan Assessment & Plan (1) PAD (peripheral artery disease): Comment: 11/16/2023 left external iliac stent Code(s): I73.9 - Peripheral vascular disease, unspecified Plan: In short patient appears to be doing well with the left external iliac stent. She does have significant SFA disease. If the wound continues to not here she will need fem to below-knee tibioperoneal trunk bypass. We will get a 3 month surveillance [facility] to see if she does improve. Thank you for allowing us to assist in her care. If there are any questions or concerns please do not hesitate to contact us. Orders: Orders US arterial duplex LE BI 3 Months I73.9 - Peripheral vascular disease, unspecified Coding Level of Care Code Est Pt Level 4 (14980) Diagnoses PAD (peripheral artery disease) I73.9
== END 2023-12-01 13:33 | disposition home or self-care (01) ==
LOC: HO.HVS 13:15
PROVIDERS: PCP Family Medicine; Visit Provider Surgery Vascular Surgery
DX: I73.9 Peripheral vascular disease, unspecified (principal)
CPT/HCPCS: 99214

== ENCOUNTER → 2023-12-01 13:12 | Outpatient (BNVA) | payer MEDICARE, MEDICAID, SELFPAY | PROVIDERS: PCP Family Medicine; Visit Provider Surgery Vascular Surgery | DX: I73.9 Peripheral vascular disease, unspecified (principal) | CPT/HCPCS: 99212 ==

== ENCOUNTER 2023-12-02 10:53 | Outpatient (AMB) | payer MEDICARE, MEDICAID, SELFPAY ==
--- NOTE | 2023-12-02 11:15 | HO.NEPHOV ---
HPI HPI Comments History of Present Illness Details I would the privilege of seeing Anastasiia in follow-up of her hypertension. She is continuing to smoke. She has history of CVA with deficits which had improved and stable. Recently she has been having peripheral arterial disease needing left external iliac plasty and stenting. She may need fem to below-knee tibioperoneal trunk bypass. She claims to be compliant with her medications. She was wondering whether she can cut back on the dose of her antihypertensives. She does not have any chest pain, shortness of breath, paroxysmal nocturnal dyspnea, orthopnea, pedal edema or urinary symptoms. She denies any orthostatic symptoms. She is on anticoagulation after stent placement. She was wondering whether she has any carotid disease. [facility] Medical History Bipolar disorder CVA (cerebral vascular accident) Back pain Seasonal allergies Migraines Opioid dependence HTN (hypertension) Surgical History H/O colonoscopy (~2018) Social History Patient Tobacco Use Status: Current everyday Tobacco user Cigarette Packs Per Day: 1 Cigarettes Per Day: 7 Years Smoked: 48 Vital Signs 12/02/23 11:21 Height 5 ft 6 in Weight 127 lb BMI 20.5 BP 140/90 H Blood Pressure Location Lt brachial Position Sitting Pulse 74 Pulse Source Pulse Oximeter Pulse Oximetry (%) 99 Oxygen Delivery Method Room Air Physical Exam Vital Signs: Last Vital Signs Pulse 74 12/02/23 11:21 BP 140/90 H 12/02/23 11:21 Pulse Ox 99 12/02/23 11:21 Oxygen Delivery Method Room Air 12/02/23 11:21 BMI result Body Mass Index 20.5 Const General: comfortable and no acute distress Orientation/consciousness: patient oriented x3 HEENT Head: Yes normocephalic Mouth: Normal oral and palatal mucosa present Eyes EOM: EOMs intact bilaterally Neck Neck: Yes supple Resp Auscultation: clear to auscultation bilaterally Cardio Jugular venous distension: no JVD Rate: regular rate GI Palpation (GI): Soft to palpation Auscultation: normal bowel sounds General: Yes no CVA tenderness Back/Spine/Pelvis Back: no CVA tenderness Skin General skin exam: no rashes or lesions noted Neuro General: patient oriented x3 and moves all extremities Extrem General: Yes no pedal edema Assessment & Plan Assessment & Plan (1) HTN (hypertension): Code(s): I10 - Essential (primary) hypertension Qualifiers: Hypertension type: primary hypertension Qualified Code(s): I10 - Essential (primary) hypertension Plan Anastasiia has hypertension close to 30 years. Initially she had issues with hydrochlorothiazide. She claims to have allergy to amlodipine. She has not known to have any low serum potassium, hypercalcemia or thyroid disorders. Her renal functions have been normal. She is known to have vascular disease. She has peripheral arterial disease needing left iliac artery stenting. She also had CVA in the past. She is currently on spironolactone and labetalol which she is tolerating well. She claims to be on a low-sodium diet. She should maintain good hydration. Doppler of renal arteries did not show any significant renal artery stenosis in the past. I did not make any medication changes today. All questions answered. Follow-up appointment given. Coding Level of Care Code Est Pt Level 3 (44364) Diagnoses Primary hypertension I10 Hypertension type: primary hypertension Results Reviewed Nephrology Results: Hgb 10.4 g/dl (12.0-16.0) L 11/03/23 WBC 6.3 X10*3/uL (4.8-10.8) 11/03/23 Plt Count 224 X10*3/uL (160-400) 11/03/23 Sodium 140 mmol/L (135-145) 11/03/23 Potassium 4.0 mmol/L (3.3-5.1) 11/03/23 Chloride 103 mmol/L (96-108) 11/03/23 Carbon Dioxide 30 mmol/L (22-29) H 11/03/23 BUN 15 mg/dL (9-16) 11/03/23 Creatinine 0.80 mg/dL (0.5-1.4) 11/03/23 Calcium 10.1 mg/dL (8.4-10.2) 11/03/23 Urine Creatinine 55.28 mg/dL 02/18/22 Protein/Creatinin Ratio TNP 02/18/22
[2023-12-02 11:21] VITALS: BP 140/90; PULSE 74; O2SAT 99; BMI 20.5
== END 2023-12-02 12:00 | disposition home or self-care (01) ==
PROVIDERS: PCP Family Medicine; Visit Provider Internal Medicine Nephrology
DX: I10 Essential (primary) hypertension (principal)
CPT/HCPCS: 99213

== ENCOUNTER → 2023-12-02 10:53 | Outpatient (BNVA) | payer MEDICARE, MEDICAID, SELFPAY | PROVIDERS: PCP Family Medicine; Visit Provider Internal Medicine Nephrology | DX: I10 Essential (primary) hypertension (principal) | CPT/HCPCS: 99212 ==

== ENCOUNTER 2024-02-22 10:30 | Outpatient (REF) | payer MEDICARE, MEDICAID, SELFPAY ==
[2024-02-22 13:46] LABS: Anion Gap 14 (12-20); Blood Urea Nitrogen 13 mg/dL (9-16); Carbon Dioxide 28 mmol/L (22-29); Chloride 103 mmol/L (96-108); Estimated Glomerular Filt Rate > 60; Potassium 4.4 mmol/L (3.3-5.1); Sodium 141 mmol/L (135-145)
[2024-02-22 14:20] LABS: Creatinine Urine 136.17 mg/dL; Protein/Creatinine Ratio, Ur 0.12 (<0.2); Total Protein Urine Random 16 mg/dL (<12)
== END 2024-02-22 10:31 | disposition home or self-care (01) ==
LOC: HO.HMGCLDS 10:30
PROVIDERS: Visit Provider Internal Medicine Nephrology
DX: I73.9 Peripheral vascular disease, unspecified (principal); I10 Essential (primary) hypertension
CPT/HCPCS: 36415; 80051; 82565; 82570; 84156; 84520

== ENCOUNTER 2024-02-29 13:52 | Outpatient (AMB) | payer MEDICARE, MEDICAID, SELFPAY ==
--- NOTE | 2024-02-29 14:10 | HO.NEPHOV_ITS ---
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 She is continuing to smoke. She has history of CVA with deficits which had improved and stable. Recently she has been having peripheral arterial disease needing left external iliac plasty and stenting. She may need fem to below-knee tibioperoneal trunk bypass. She claims to be compliant with her medications. She does not have any chest pain, shortness of breath, paroxysmal nocturnal dyspnea, orthopnea, pedal edema or urinary symptoms. She denies any orthostatic symptoms. She is on anticoagulation after stent placement. [facility] Medical History Bipolar disorder CVA (cerebral vascular accident) Back pain Seasonal allergies Migraines Opioid dependence HTN (hypertension) Surgical History H/O colonoscopy (~2019) Social History Patient Tobacco Use Status: Current everyday Tobacco user Cigarette Packs Per Day: 1 Cigarettes Per Day: 7 Years Smoked: 48 Physical Exam Vital Signs: Last Vital Signs Pulse 86 02/29/24 14:13 BP 120/82 02/29/24 14:13 Pulse Ox 96 02/29/24 14:13 Oxygen Delivery Method Room Air 02/29/24 14:13 BMI result Body Mass Index 19.7 Const General: comfortable and no acute distress Orientation/consciousness: patient oriented x3 HEENT Head: Yes normocephalic Mouth: Normal oral and palatal mucosa present Eyes EOM: EOMs intact bilaterally Neck Neck: Yes supple Resp Auscultation: clear to auscultation bilaterally Cardio Jugular venous distension: no JVD Rate: regular rate GI Palpation (GI): Soft to palpation Auscultation: normal bowel sounds General: Yes no CVA tenderness Back/Spine/Pelvis Back: no CVA tenderness Skin General skin exam: no rashes or lesions noted Neuro General: patient oriented x3 and moves all extremities Extrem General: Yes no pedal edema Results Reviewed Nephrology Results: Sodium 141 mmol/L (135-145) 02/22/24 Potassium 4.4 mmol/L (3.3-5.1) 02/22/24 Chloride 103 mmol/L (96-108) 02/22/24 Carbon Dioxide 28 mmol/L (22-29) 02/22/24 BUN 13 mg/dL (9-16) 02/22/24 Creatinine 0.82 mg/dL (0.5-1.4) 02/22/24 Calcium 10.1 mg/dL (8.4-10.2) 11/03/23 Urine Creatinine 136.17 mg/dL 02/22/24 Protein/Creatinin Ratio 0.12 (<0.2) 02/22/24 Assessment & Plan Assessment & Plan (1) HTN (hypertension): Code(s): I10 - Essential (primary) hypertension Category: Medical Qualifiers: Hypertension type: primary hypertension Qualified Code(s): I10 - Essential (primary) hypertension Plan Anastasiia has hypertension close to 30 years. Initially she had issues with hydrochlorothiazide. She claims to have allergy to amlodipine. She has not known to have any low serum potassium, hypercalcemia or thyroid disorders. Her renal functions have been normal. She is known to have vascular disease. She has peripheral arterial disease needing left iliac artery stenting. She also had CVA in the past. She is currently on spironolactone and labetalol which she is tolerating well. She claims to be on a low-sodium diet. She should maintain good hydration. Doppler of renal arteries did not show any significant renal artery stenosis in the past. I did not make any medication changes today. All questions answered. Follow-up appointment given. Coding Level of Care Code Est Pt Level 4 (91559) Diagnoses Primary hypertension I10 Hypertension type: primary hypertension
[2024-02-29 14:13] VITALS: BP 120/82; PULSE 86; O2SAT 96; BMI 19.7
== END 2024-02-29 14:37 | disposition home or self-care (01) ==
LOC: HO.HKA 13:52
PROVIDERS: PCP Family Medicine; Visit Provider Internal Medicine Nephrology
DX: I10 Essential (primary) hypertension (principal)
CPT/HCPCS: 99214

== ENCOUNTER → 2024-02-29 13:52 | Outpatient (BNVA) | payer MEDICARE, MEDICAID, SELFPAY | PROVIDERS: PCP Family Medicine; Visit Provider Internal Medicine Nephrology | DX: I10 Essential (primary) hypertension (principal) | CPT/HCPCS: 99212 ==

== ENCOUNTER 2024-03-01 12:43 | Outpatient (REF) | payer MEDICARE, MEDICAID, SELFPAY ==
--- NOTE | ~2024-03-01 | US_ITS ---
EXAMINATION: NONINVASIVE ASSESSMENT OF THE ARTERIES OF BOTH LOWER EXTREMITIES INCLUDING BILATERAL LOWER EXTREMITY DUPLEX. CLINICAL INFORMATION: Left EI stent COMPARISON: None TECHNIQUE: duplex Doppler techniques with wave form analysis and measurement of velocities in the common femoral, profunda femoral, superficial femoral, popliteal, tibial and peroneal arteries. The study was performed only at rest. FINDINGS: RIGHT LEG Common femoral artery: 96 cm/s, monophasic Profunda femoris artery: 107 cm/s, Multiphasic Superficial femoral artery (proximal): occluded Superficial femoral artery (mid): occluded Superficial femoral artery (distal): occluded Proximal Popliteal artery: 276 cm/s, monophasic Mid posterior tibial artery: 28 cm/s, monophasic LEFT LEG: Common femoral artery: 121 cm/s, Multiphasic Profunda femoris artery: 80 cm/s, monophasic Superficial femoral artery (proximal): occluded Superficial femoral artery (mid): occluded Superficial femoral artery (distal): 36 cm/s, monophasic Proximal Popliteal artery: occluded Mid posterior tibial artery: 21 cm/s, monophasic Stent in the left external iliac artery is patent. US/US arterial duplex LE BI IMPRESSION: RIGHT LEG: Occluded SFA with monophasic flow in the popliteal artery. LEFT LEG: Occluded SFA and popliteal arteries with reconstitution distally. Patent stent in the left external iliac artery.
--- NOTE | ~2024-03-01 | US_ITS ---
EXAMINATION: US RETROPERITONEAL LIMITED (AORTA) CLINICAL INFORMATION: Peripheral vascular disease, iliac artery stent. COMPARISON: None available. TECHNIQUE: Fitch-scale, color Doppler and spectral Doppler evaluation of the abdominal aorta. FINDINGS: There is atherosclerotic disease The measurements of the aorta in maximum AP and transverse dimensions respectively are as follows: Proximal: 3.6 x 3.5 cm. Mid: 2.4 x 2.2 cm. Distal: 5.1 x 4.3 cm. PSV: 59.8 cm/s. The measurements of the common iliac arteries in maximum AP and TRV dimensions are as follows: Right Common Iliac Artery: Not measured but appears normal in caliber by visual exam Left Common Iliac Artery: Not measured but appears normal in caliber by visual exam US/US abdominal aortic aneurysm IMPRESSION: Infrarenal abdominal aortic aneurysm measuring 5.1 x 4.3 cm. Based on published guidelines in J Am Paloma Radiol 2013; 10(10):789-794 and J Vasc Surg. 2018; 67:2-77, the recommendation for an abdominal aortic aneurysm with diameter 4.5-5.4 cm is vascular consultation and subsequent follow-up every 6 months.
== END 2024-03-01 12:44 | disposition home or self-care (01) ==
LOC: HO.US 12:43
PROVIDERS: PCP Family Medicine; Visit Provider Surgery Vascular Surgery
DX: I71.40 Abdominal aortic aneurysm, without rupture, unspecified (principal); I70.203 Unspecified atherosclerosis of native arteries of extremities, bilateral legs; Z95.828 Presence of other vascular implants and grafts; I73.9 Peripheral vascular disease, unspecified
CPT/HCPCS: 76706; 93925

== ENCOUNTER 2024-08-09 11:53 | Outpatient (REF) | payer MEDICARE, MEDICAID, SELFPAY ==
[2024-08-09 14:13] LABS: Anion Gap 13 (12-20); Blood Urea Nitrogen 14 mg/dL (9-16); Calcium 9.8 mg/dL (8.4-10.2); Carbon Dioxide 28 mmol/L (22-29); Chloride 102 mmol/L (96-108); Estimated Glomerular Filt Rate > 60; Sodium 139 mmol/L (135-145)
[2024-08-09 14:27] LABS: Creatinine Urine 226.26 mg/dL; Protein/Creatinine Ratio, Ur 0.12 (<0.2); Total Protein Urine Random 27 mg/dL (<12)
== END 2024-08-09 11:54 | disposition home or self-care (01) ==
LOC: HO.HMGCLDS 11:53
PROVIDERS: PCP Family Medicine; Visit Provider Internal Medicine Nephrology
DX: I10 Essential (primary) hypertension (principal)
CPT/HCPCS: 36415; 80051; 82310; 82565; 82570; 84156; 84520

== ENCOUNTER 2024-08-22 11:06 | Outpatient (AMB) | payer MEDICARE, MEDICAID, SELFPAY ==
--- NOTE | 2024-08-22 11:19 | HO.NEPHOV_ITS ---
Vital Signs 08/22/24 11:22 Height 5 ft 6 in Weight 113 lb BMI 18.2 BP 150/90 H Blood Pressure Location Rt brachial Position Sitting Intake Visit Reasons: CKD/ 6 MO FU-LVM Deployment Technician Required: No Accompanied by: Self / Same As Patient Allergies No Known Allergies [No Known Allergies*] Allergy (Verified 08/22/24 11:22) HPI Comments Details: Anastasiia was seen in follow-up of her hypertension. She is continuing to smoke. She has history of CVA with deficits which had improved and stable. She has been having peripheral arterial disease needing left external iliac plasty and stenting. She has a AAA. She may need fem to below-knee tibioperoneal trunk bypass. She claims to be compliant with her medications. She does not have any chest pain, shortness of breath, paroxysmal nocturnal dyspnea, orthopnea, pedal edema or urinary symptoms. She denies any orthostatic symptoms. [facility] Medical History (Updated 08/22/24 @ 11:41 by Raúl Lara MD) Bipolar disorder CVA (cerebral vascular accident) Back pain Seasonal allergies Migraines Opioid dependence HTN (hypertension) Surgical History H/O colonoscopy (~2019) Social History Patient Tobacco Use Status: Current everyday Tobacco user Cigarette Packs Per Day: 1 Cigarettes Per Day: 7 Years Smoked: 48 Review of Systems Const All systems reviewed & are unremarkable except as noted in HPI and below Physical Exam Vital Signs: Last Vital Signs BP 150/90 H 08/22/24 11:22 BMI result Body Mass Index 18.2 Const General: comfortable and no acute distress Orientation/consciousness: patient oriented x3 HEENT Head: Yes normocephalic Mouth: Normal oral and palatal mucosa present Eyes EOM: EOMs intact bilaterally Neck Neck: Yes supple Resp Auscultation: clear to auscultation bilaterally Cardio Jugular venous distension: no JVD Rate: regular rate GI Palpation (GI): Soft to palpation Auscultation: normal bowel sounds General: Yes no CVA tenderness Back/Spine/Pelvis Back: no CVA tenderness Skin General skin exam: no rashes or lesions noted Neuro General: patient oriented x3 and moves all extremities Results Reviewed Nephrology Results: Sodium 139 mmol/L (135-145) 10/31/24 Potassium 4.0 mmol/L (3.3-5.1) 08/09/24 Chloride 102 mmol/L (96-108) 08/09/24 Carbon Dioxide 28 mmol/L (22-29) 08/09/24 BUN 14 mg/dL (9-16) 08/09/24 Creatinine 0.79 mg/dL (0.5-1.4) 08/09/24 Calcium 9.8 mg/dL (8.4-10.2) 08/09/24 Urine Creatinine 226.26 mg/dL 08/09/24 Protein/Creatinin Ratio 0.12 (<0.2) 08/09/24 Assessment & Plan Assessment & Plan (1) AAA (abdominal aortic aneurysm): Code(s): I71.40 - Abdominal aortic aneurysm, without rupture, unspecified Category: Medical Qualifiers: Abdominal aorta location: infrarenal aorta Presence of rupture: without rupture Qualified Code(s): I71.43 - Infrarenal abdominal aortic aneurysm, without rupture (2) Back pain: Code(s): M54.9 - Dorsalgia, unspecified Category: Medical Qualifiers: Back pain laterality: bilateral Back pain location: low back pain Chronicity: chronic Sciatica presence: without sciatica Qualified Code(s): M54.50 - Low back pain, unspecified; G89.29 - Other chronic pain (3) HTN (hypertension): Code(s): I10 - Essential (primary) hypertension Category: Medical Qualifiers: Hypertension type: primary hypertension Qualified Code(s): I10 - Essential (primary) hypertension Plan Anastasiia has hypertension close to 30 years. Initially she had issues with hydrochlorothiazide. She claims to have allergy to amlodipine. She has not known to have any low serum potassium, hypercalcemia or thyroid disorders. Her renal functions have been normal. She is known to have vascular disease. She has peripheral arterial disease needing left iliac artery stenting. She also had CVA in the past. She is currently on spironolactone and labetalol which she is tolerating well. She claims to be on a low-sodium diet. She should maintain good hydration. Doppler of renal arteries did not show any significant renal artery stenosis in the past. I increased her labetalol to 300 mg bid and did not make any other medication changes today. She requested referral to [facility] pain management & vascular surgery. All questions answered. Follow-up appointment given Orders: Referrals Vascular Surgery Referral I71.40 - Abdominal aortic aneurysm, without rupture, unspecified Pain Management Referral M54.9 - Dorsalgia, unspecified Medications: Changed From labetalol 300 mg PO BID To labetalol 300 mg (1.5 x 200 mg) PO BID 90 tabs 4RF Coding Level of Care Code Est Pt Level 4 (78566) Diagnoses Infrarenal abdominal aortic aneurysm (AAA) without rupture I71.43 Abdominal aorta location: infrarenal aorta Presence of rupture: without rupture Chronic bilateral low back pain without sciatica M54.50; G89.29 Back pain laterality: bilateral Back pain location: low back pain Chronicity: chronic Sciatica presence: without sciatica Primary hypertension I10 Hypertension type: primary hypertension
[2024-08-22 11:22] VITALS: BP 150/90; BMI 18.2
== END 2024-08-22 11:52 | disposition home or self-care (01) ==
PROVIDERS: PCP Family Medicine; Visit Provider Internal Medicine Nephrology
DX: I71.43 Infrarenal abdominal aortic aneurysm, without rupture (principal); M54.50 Low back pain, unspecified; G89.29 Other chronic pain; I10 Essential (primary) hypertension
CPT/HCPCS: 99214

== ENCOUNTER → 2024-08-22 11:06 | Outpatient (BNVA) | payer MEDICARE, MEDICAID, SELFPAY | PROVIDERS: PCP Family Medicine; Visit Provider Internal Medicine Nephrology | DX: I10 Essential (primary) hypertension (principal); I71.43 Infrarenal abdominal aortic aneurysm, without rupture; M54.50 Low back pain, unspecified; G89.29 Other chronic pain; Z79.891 Long term (current) use of opiate analgesic | CPT/HCPCS: 99212 ==

== ENCOUNTER 2024-09-12 10:46 | Outpatient (AMB) | payer MEDICARE, MEDICAID, SELFPAY ==
--- NOTE | 2024-09-12 10:58 | HO.NEPHOV ---
Vital Signs 09/12/24 11:01 Height 5 ft 6 in Weight 113 lb BMI 18.2 BP 150/92 H Blood Pressure Location Lt brachial Position Sitting Intake Visit Reasons: 2wk follow up-no labs/ Conf Geophysical Support Specialist Required: No Accompanied by: Self / Same As Patient Allergies No Known Allergies [No Known Allergies*] Allergy (Verified 09/12/24 11:00) HPI Comments Details: Anastasiia was seen in follow-up of her hypertension. She is continuing to smoke. She has history of CVA with deficits which had improved and stable. She has been having peripheral arterial disease needing left external iliac plasty and stenting. She has a AAA. She may need fem to below-knee tibioperoneal trunk bypass. She claims to be compliant with her medications. She does not have any chest pain, shortness of breath, paroxysmal nocturnal dyspnea, orthopnea, pedal edema or urinary symptoms. She denies any orthostatic symptoms. She wants her labetalol changed as she feels its not working for her [facility] Medical History (Updated 08/22/24 @ 11:41 by Raúl Lara MD) Bipolar disorder CVA (cerebral vascular accident) Back pain Seasonal allergies Migraines Opioid dependence HTN (hypertension) Surgical History H/O colonoscopy (~2019) Social History Patient Tobacco Use Status: Current everyday Tobacco user Cigarette Packs Per Day: 1 Cigarettes Per Day: 7 Years Smoked: 48 Review of Systems Const All systems reviewed & are unremarkable except as noted in HPI and below Physical Exam Const General: comfortable and no acute distress Orientation/consciousness: patient oriented x3 HEENT Head: Yes normocephalic Mouth: Normal oral and palatal mucosa present Eyes EOM: EOMs intact bilaterally Neck Neck: Yes supple Resp Auscultation: clear to auscultation bilaterally Cardio Jugular venous distension: no JVD Rate: regular rate GI Palpation (GI): Soft to palpation Auscultation: normal bowel sounds General: Yes no CVA tenderness Back/Spine/Pelvis Back: no CVA tenderness Skin General skin exam: no rashes or lesions noted Neuro General: patient oriented x3 and moves all extremities Extrem General: Yes no pedal edema Results Reviewed Nephrology Results: Sodium 139 mmol/L (135-145) 10/31/24 Potassium 4.0 mmol/L (3.3-5.1) 08/09/24 Chloride 102 mmol/L (96-108) 08/09/24 Carbon Dioxide 28 mmol/L (22-29) 08/09/24 BUN 14 mg/dL (9-16) 08/09/24 Creatinine 0.79 mg/dL (0.5-1.4) 08/09/24 Calcium 9.8 mg/dL (8.4-10.2) 08/09/24 Urine Creatinine 226.26 mg/dL 08/09/24 Protein/Creatinin Ratio 0.12 (<0.2) 08/09/24 Assessment & Plan Assessment & Plan (1) HTN (hypertension): Code(s): I10 - Essential (primary) hypertension Category: Medical Qualifiers: Hypertension type: primary hypertension Qualified Code(s): I10 - Essential (primary) hypertension Plan Anastasiia has hypertension close to 30 years. She had issues with hydrochlorothiazide. She claims to have allergy to amlodipine. She has not known to have any low serum potassium, hypercalcemia or thyroid disorders. Her renal functions have been normal. She is known to have vascular disease. She has peripheral arterial disease needing left iliac artery stenting. She also had CVA in the past. She is currently on spironolactone which I may increase to 50 mg at next vsiit. She wanted labetalol chnaged and so was initiated on carvedilol 25 mg bid. She claims to be on a low-sodium diet. She should maintain good hydration. Doppler of renal arteries did not show any significant renal artery stenosis in the past. All questions answered. Follow-up appointment given Medications: New carvedilol must administer with a meal/food 25 mg PO BID 90 days 180 tabs 4RF Discontinued labetalol Discontinued Reason: Doctor's Order 300 mg (1.5 x 200 mg) PO BID 90 tabs 4RF Coding Level of Care Code Est Pt Level 4 (44786) Diagnoses Primary hypertension I10 Hypertension type: primary hypertension
[2024-09-12 11:01] VITALS: BP 150/92; BMI 18.2
--- OUTSIDE RECORDS SUMMARY | 2024-09-18 17:45 | XMS_ITS | Continuity of Care Document ---
Author Organization [facility] Address [address] [place] [address] [address] [place] [address] Phone Care Team Providers Care Highway Patrol Officer Name Role Phone Clinton Bundy MD, FACS, RVT Unavailable Unavailable Advance Directives Directive Yes / No Effective Date File Name No Information Encounters Encounter Description Practice Location Reason(s) For Visit Diagnoses Date Provider Providers Copied on Encounter [facility], [address] [facility] [address], [place], [id number], tel:[phone] [address] [facility] No Information Arsenio CAMPOS FACS EDGAR Melendez. [address] [address], [place], [address], [place]. tel:[phone] Referring Provider: Max Andrews MD R, [address] [place] [address], [address]. tel:[phone] Family History Family Member Type Diagnosis Age At Onset No Information Payers Payer name Insurance type Covered libertarian ID Authoriza tion(s) No Information Social History Type Description Quantity Date Captured Comments Sex Female Smoking Status No Information Chief Complaint And Reason For Visit No Information Reason For Referral Reason For Referral No Information History Of Present Illness Encounter Date Complaint History Of Prese nt Illness No Information Functional Status Date Functional Assessmen t No Information Instructions Date Instruction Additional Infor mation No Information Assessments Type Assessment Date No Information Patient Care Teams Name Effective Dates (start - stop) Status Members No Information
== END 2024-09-12 11:29 | disposition home or self-care (01) ==
PROVIDERS: PCP Family Medicine; Visit Provider Internal Medicine Nephrology
DX: I10 Essential (primary) hypertension (principal)
CPT/HCPCS: 99214

== ENCOUNTER → 2024-09-12 10:46 | Outpatient (BNVA) | payer MEDICARE, MEDICAID, SELFPAY | PROVIDERS: PCP Family Medicine; Visit Provider Internal Medicine Nephrology | DX: I10 Essential (primary) hypertension (principal); F17.210 Nicotine dependence, cigarettes, uncomplicated | CPT/HCPCS: 99212 ==

== ENCOUNTER 2024-09-26 13:53 | Outpatient (AMB) | payer MEDICARE, MEDICAID, SELFPAY ==
--- NOTE | 2024-09-26 13:56 | MHC.OFFVIS ---
Vital Signs 09/26/24 13:58 Height 5 ft 6 in Weight 112 lb BMI 18.1 BP 159/83 H Blood Pressure Location Lt brachial Position Sitting Respiration 15 Pulse 81 Pulse Source Pulse Oximeter Pulse Oximetry (%) 97 Oxygen Delivery Method Room Air Intake Visit Reasons: Dorsalgia, unspecified/karina from 09/13 Allergies No Known Allergies [No Known Allergies*] Allergy (Verified 09/26/24 13:59) Medication List - Last Reconciled 09/26/24 by Meryl Vidales LPN aspirin 81 mg PO DAILY atorvastatin 40 mg PO DAILY uqzlbbjyhn-[id number] 50-325-40 mg 1 cap Q4H carvedilol 25 mg PO BID 90 days cholecalciferol (vitamin D3) 1,250 mcg PO QWEEK fluoxetine 20 mg PO DAILY spironolactone 1 tab PO DAILY HPI Comments Details: Anastasiia is very pleasant 58 years old female who presents in my office with the intention to establish a relationship for further management of her intrathecal pain pump. She reported that in the past she was suffering from lower back pain with radiation to bilateral lower extremities. She never had any surgery in the back. She does not have any images of her lumbar spine available for me. Briefly she mentioned about presence of some sort of a cyst the lumbar spine. Her intrathecal pain pump was 1st established in 10/27/2017 it was implanted by Dr. Mikayla oCtton. Dr. Malave interventional radiology was continuing to refill this pain pump. Recently the intrathecal pain pump was filled up by Dr. Malave. She is currently under observation of Nephrology with intractable hypertension which is difficult to treat however her creatinine is normal. She is also suffering from multiple vascular problems she has abdominal aortic aneurysm and she is under observation of Dr. Glass she had several stents in left external iliac artery she also is needed below the knee tibioperoneal trunk bypass. The consultation for this procedure scheduled with Dr. Glass on October 25, 2024. He is also a victim of the stroke he has under observation of primary care physician she improved after the stroke and she reports that deficits improved and stable. According to the note patient is smoking cigarettes 1 pack per day or 7 cigarettes per day she has smoke for 48 years. [facility] Medical History (Updated 09/26/24 @ 14:38 by Keenan Sanchez MD) Bipolar disorder CVA (cerebral vascular accident) Back pain Seasonal allergies Migraines Opioid dependence HTN (hypertension) Surgical History H/O colonoscopy (~2019) Social History Patient Tobacco Use Status: Current everyday Tobacco user Cigarette Packs Per Day: 1 Cigarettes Per Day: 7 Years Smoked: 48 Review of Systems Const All systems reviewed & are unremarkable except as noted in HPI and below ENT Reports Normal hearing present Neuro Reports Normal hearing present, Denies Abnormal speech present and Denies Sensory deficit (Neuro) Physical Exam Vital Signs: Last Vital Signs Pulse 81 09/26/24 13:58 Resp 15 09/26/24 13:58 BP 159/83 H 09/26/24 13:58 Pulse Ox 97 09/26/24 13:58 Oxygen Delivery Method Room Air 09/26/24 13:58 BMI result Body Mass Index 18.1 Const General: no acute distress Nutritional Appearance: thin Orientation/consciousness: patient oriented x3 Eyes General: appearance normal, both eyes and all related structures Pupils: Equal, round and reactive pupils present EOM: EOMs intact bilaterally Neck Neck: Yes full ROM Chest Chest palpation & inspection: normal inspection of the chest Resp Effort & Inspection: normal respiratory effort, able to speak in complete sentences, normal respiratory pattern, no audible wheezes and no cough Cardio Jugular venous distension: no JVD GI Inspection: Yes normal to inspection Back/Spine/Pelvis Other: On inspection there is the pain pump in the right lower abdomen the scar is very well-healed the pump with 20 cc by volume according to the [employer] report. She receives continuous 1.651 mg a day in the pain pump the concentration of morphine is 20 milligrams/mL. She is also prescribed PTM doses as morphine 0.15 mg on demand 2 boluses a day 4 hours apart. The patient states that she does not use her PTM machine because it makes her sick and also make her obtunded and sleepy. Neuro General: patient oriented x3 and gait normal Cranial nerves: Yes CN's II-XII intact bilaterally, Yes Equal, round and reactive pupils present, Yes Normal hearing present and Yes Ability to bilaterally elevate shoulders present Speech: No Abnormal speech present Gait exam (Neuro): Normal gait present Motor exam (neuro): 5/5 motor strength present throughout Sensory Exam: No Sensory deficit (Neuro) Extrem General: No pedal edema Psych Speech and movement: Normal speech and movement present Affect: normal affect Attitude: cooperative Thought process: Normal thought process present Thought content: Normal thought content present Insight: Good insight present (Psych) Judgement: Good judgement present (Psych) Assessment & Plan Assessment & Plan (1) Chronic pain syndrome: Code(s): G89.4 - Chronic pain syndrome Category: Medical (2) Implantable intrathecal infusion pump present: Code(s): Z96.89 - Presence of other specified functional implants Category: Medical Plan We agreed that the patient will sign medical information release note and we will send this note to Dr. Whaley to obtain information for what specific conditions she was implanted critical pain pump because patient is not very good historian and can not describe to us what was the reason of pump implantation. I also will decrease the concentration of the medications to 10 mg per mL it is very concentrated medication in her pain pump. I will refill her pain pump at 12/24/2024. Coding Level of Care Code New Pt Level 3 (17079) Diagnoses Chronic pain syndrome G89.4 Implantable intrathecal infusion pump present Z96.89
[2024-09-26 13:58] VITALS: BP 159/83; PULSE 81; RESP 15; O2SAT 97; BMI 18.1
== END 2024-09-26 14:24 | disposition home or self-care (01) ==
PROVIDERS: PCP Family Medicine; Visit Provider Anesthesiology
DX: G89.4 Chronic pain syndrome (principal); Z96.89 Presence of other specified functional implants
CPT/HCPCS: 99203

== ENCOUNTER → 2024-09-26 13:53 | Outpatient (BNVA) | payer MEDICARE, MEDICAID, SELFPAY | PROVIDERS: PCP Family Medicine; Visit Provider Anesthesiology | DX: G89.4 Chronic pain syndrome (principal); Z96.89 Presence of other specified functional implants | CPT/HCPCS: 99202 ==

== ENCOUNTER 2024-10-17 13:39 | Outpatient (AMB) | payer MEDICARE, MEDICAID, SELFPAY ==
--- OUTSIDE RECORDS SUMMARY | 2024-10-17 13:42 | XMS_ITS | Continuity of Care Document ---
Author Organization [facility] Address [address] [place] [address] [address] [place] [address] Phone Care Team Providers Care Marine Mammal Trainer Name Role Phone Clinton Bundy MD, FACS, RVT Unavailable Unavailable Advance Directives Directive Yes / No Effective Date File Name No Information Encounters Encounter Description Practice Location Reason(s) For Visit Diagnoses Date Provider Providers Copied on Encounter [facility], [address] [facility] [address], [place], [id number], tel:[phone] [address] [facility] No Information Arsenio CAMPOS FACS EDGAR Melendez. [address] [address], [place], [address], [place]. tel:[phone] Referring Provider: Max Andrews MD R, [address] [place] [address], [address]. tel:[phone] Family History Family Member Type Diagnosis Age At Onset No Information Payers Payer name Insurance type Covered democrat ID Authoriza tion(s) No Information Social History [...]
--- NOTE | 2024-10-17 13:48 | MHC.OFFVIS ---
Vital Signs 10/17/24 13:49 Height 5 ft 6 in Weight 112 lb BMI 18.1 BP 164/90 H Blood Pressure Location Lt brachial Position Sitting Intake Visit Reasons: Hypertension Director Of Healthcare Systems Required: No Accompanied by: Self / Same As Patient Allergies No Known Allergies [No Known Allergies*] Allergy (Verified 10/17/24 13:48) HPI Comments Details: Anastasiia was seen in follow-up of her hypertension. She is continuing to smoke. She has history of CVA with deficits which had improved and stable. She has been having peripheral arterial disease needing left external iliac plasty and stenting. She has a AAA. She may need fem to below-knee tibioperoneal trunk bypass. She claims to be compliant with her medications. She does not have any chest pain, shortness of breath, paroxysmal nocturnal dyspnea, orthopnea, pedal edema or urinary symptoms. She denies any orthostatic symptoms. She wants her labetalol changed as she feels its not working for her [facility] Medical History (Updated 09/26/24 @ 14:38 by Keenan Sanchez MD) Bipolar disorder CVA (cerebral vascular accident) Back pain Seasonal allergies Migraines Opioid dependence HTN (hypertension) Surgical History H/O colonoscopy (~2019) Social History Patient Tobacco Use Status: Current everyday Tobacco user Cigarette Packs Per Day: 1 Cigarettes Per Day: 7 Years Smoked: 48 Review of Systems Const All systems reviewed & are unremarkable except as noted in HPI and below Physical Exam Vital Signs: Last Vital Signs BP 164/90 H 10/17/24 13:49 BMI result Body Mass Index 18.1 Const General: comfortable and no acute distress Orientation/consciousness: patient oriented x3 HEENT Head: Yes normocephalic Mouth: Normal oral and palatal mucosa present Eyes EOM: EOMs intact bilaterally Neck Neck: Yes supple Resp Auscultation: clear to auscultation bilaterally Cardio Jugular venous distension: no JVD Rate: regular rate Heart sounds: Murmur heart sound present GI Palpation (GI): Soft to palpation Auscultation: normal bowel sounds Skin General skin exam: no rashes or lesions noted Neuro General: patient oriented x3 and moves all extremities Extrem General: Yes no pedal edema Assessment & Plan Assessment & Plan (1) HTN (hypertension): Code(s): I10 - Essential (primary) hypertension Category: Medical Qualifiers: Hypertension type: primary hypertension Qualified Code(s): I10 - Essential (primary) hypertension Plan Anastasiia has hypertension close to 30 years. She had issues with hydrochlorothiazide. She claims to have allergy to amlodipine. She has not known to have any low serum potassium, hypercalcemia or thyroid disorders. Her renal functions have been normal. She is known to have vascular disease. She has peripheral arterial disease needing left iliac artery stenting. She also had CVA in the past. She is currently on spironolactone which I increased to 50 mg at noon time. She wanted labetalol changed at the last visit and was initiated on carvedilol 25 mg bid, which she thinks is not agreeing with her. I restarted her back on Labetalol @ 400 mg bid after discontinuation of carvedilol. She claims to be on a low-sodium diet. She should maintain good hydration. Doppler of renal arteries did not show any significant renal artery stenosis in the past. All questions answered. Follow-up appointment given Orders: Orders Blood Urea Nitrogen 1 Month I10 - Essential (primary) hypertension Creatinine 1 Month I10 - Essential (primary) hypertension Electrolytes 1 Month I10 - Essential (primary) hypertension Medications: New labetalol 400 mg (2 x 200 mg) PO BID 30 days 120 tabs 6RF Changed From spironolactone 50 mg PO DAILY To spironolactone 50 mg PO DAILY 30 days 30 tabs 6RF Discontinued carvedilol must administer with a meal/food Discontinued Reason: Doctor's Order 25 mg PO BID 90 days 180 tabs 4RF Coding Level of Care Code Est Pt Level 4 (11919) Diagnoses Primary hypertension I10 Hypertension type: primary hypertension
[2024-10-17 13:49] VITALS: BP 164/90; BMI 18.1
== END 2024-10-17 14:05 | disposition home or self-care (01) ==
PROVIDERS: PCP Family Medicine; Visit Provider Internal Medicine Nephrology
DX: I10 Essential (primary) hypertension (principal)
CPT/HCPCS: 99214

== ENCOUNTER → 2024-10-17 13:39 | Outpatient (BNVA) | payer MEDICARE, MEDICAID, SELFPAY | PROVIDERS: PCP Family Medicine; Visit Provider Internal Medicine Nephrology | DX: I10 Essential (primary) hypertension (principal) | CPT/HCPCS: 99212 ==

== ENCOUNTER 2024-10-25 13:58 | Outpatient (AMB) | payer MEDICARE, MEDICAID, SELFPAY ==
--- NOTE | 2024-10-25 14:02 | MHC.OFFVIS ---
Intake Visit Reasons: overdue follow up s/p Arterial US 03/01/24 Intake Note: Patient presents for follow up arterial performed on 03/01/24. Accompanied by: Self / Same As Patient Allergies No Known Allergies [No Known Allergies*] Allergy (Verified 10/25/24 14:03) HPI HPI overdue follow up s/p Arterial 03/01/24: Details: Complex 59-year-old female presents for follow-up evaluation for peripheral vascular disease. She actually was at [facility] in August of this year and had undergone a CT scan and at that time was discovered to also have aortic aneurysm. She has has had endovascular intervention by us back in November of 2023. At the current time she is able to walk about a half a block. She does note occasional chest pain and discomfort on ambulation. She is being in following nephrology. She now presents to us for follow-up with noninvasive testing dating back to February of 2024. Also of note she sees pain management and had an off for this visit in 09/26/2024 and currently has a pain pump. She continues to smoke about 4-5 cigarettes daily. She is being maintained on aspirin and statin. [facility], LAT[facility] Medical History Bipolar disorder CVA (cerebral vascular accident) Back pain Seasonal allergies Migraines Opioid dependence HTN (hypertension) Surgical History H/O colonoscopy (~2018) Social History Patient Tobacco Use Status: Current everyday Tobacco user Cigarette Packs Per Day: 1 Cigarettes Per Day: 7 Years Smoked: 48 Review of Systems Const All systems reviewed & are unremarkable except as noted in HPI and below Reports no additional complaints ENT Reports Normal hearing present Card Denies chest pain, Denies chest pain at rest, Denies chest pain with activity and Denies pedal edema Resp Denies cough GI Denies abdominal pain Musc Denies abnormal gait, Denies muscle cramps and Denies radiating pain into limb Skin/Breast Denies skin ulcer and Denies wounds Neuro Reports Normal hearing present and Denies abnormal gait Psych Reports no additional complaints Physical Exam Const General: cooperative, healthy appearing and comfortable Orientation/consciousness: oriented to person, oriented to place and oriented to time HEENT Head: Yes normal to inspection Neck Neck: Yes normal visual inspection Carotids: no bruits Chest Chest palpation & inspection: normal inspection of the chest Resp Effort & Inspection: normal respiratory effort and able to speak in complete sentences Auscultation: clear to auscultation bilaterally, no crackles, no rales, no rhonchi and no wheezes Cardio Other: Bilateral DP signals Rate: regular rate Rhythm: regular rhythm Heart sounds: S1 normal heart sound present and S2 normal heart sound present Bruits: no carotid bruits Peripheral pulses: Peripheral pulses 2+ throughout GI Inspection: Yes normal to inspection Skin Wounds: no wounds Hair: normal Neuro General: oriented to person, oriented to place and oriented to time Cranial nerves: Yes CN's II-XII intact bilaterally and Yes Normal hearing present Cognition (Neuro): normal cognition Motor exam (neuro): 5/5 motor strength present throughout Extrem Other: venous exam: No significant superficial varicosities or spider telangiectasias, minimal edema General: No clubbing, No cyanosis and No edema Psych Appearance: grossly normal Mental Status: mental status grossly normal Speech and movement: Normal speech and movement present Results Reviewed Results Reviewed: CT scan results from 08/27/2024 performed at [facility] demonstrates an aneurysm measuring 4.3 cm infrarenal. Written report reviewed only. Noninvasive arterial testing dated 03/01/2024 demonstrates bilateral SFA occlusions and a patent stent in the left external iliac. Assessment & Plan Assessment & Plan (1) PAD (peripheral artery disease): Comment: 11/16/2023 left external iliac stent Code(s): I73.9 - Peripheral vascular disease, unspecified Category: Medical Plan: In terms of her peripheral vascular disease she is a half block claudication. It is unclear what is related to her peripheral vascular disease and back pain. At the current time she has no active ulcerations and no evidence of rest pain. Due to the significant amount of peripheral vascular disease I would like to manage this as conservatively as possible. I will schedule her 6 month arterial surveillance. (2) AAA (abdominal aortic aneurysm): Code(s): I71.40 - Abdominal aortic aneurysm, without rupture, unspecified Category: Medical Qualifiers: Abdominal aorta location: infrarenal aorta Presence of rupture: without rupture Qualified Code(s): I71.43 - Infrarenal abdominal aortic aneurysm, without rupture Plan: Prior ultrasound did demonstrate a 5.1 cm abdominal aortic aneurysm. True measure on CT scan was 4.3 cm. We will get as six-month ultrasound regarding this. (3) Back pain: Code(s): M54.9 - Dorsalgia, unspecified Category: Medical Qualifiers: Back pain location: low back pain Chronicity: chronic Back pain laterality: bilateral Sciatica presence: without sciatica Qualified Code(s): M54.50 - Low back pain, unspecified; G89.29 - Other chronic pain Plan: Being managed by pain management. It appears that she had prior surgery with Dr. Cotton. Encourage continued pain management follow-up. (4) Chest pain: Code(s): R07.9 - Chest pain, unspecified Category: Medical Qualifiers: Chest pain type: unspecified Qualified Code(s): R07.9 - Chest pain, unspecified Plan: Patient does have severe peripheral vascular disease along with an abdominal aortic aneurysm. She does report occasional chest pain. I do suspect she may have significant coronary artery disease as well. I have placed a routine consult to cardiology for workup. Once again she will follow up with vascular surgery in 6 months' time with routine surveillance follow-up. Thank you for allowing us to assist in her care. The patient had an opportunity to ask questions regarding the treatment plan. All questions were answered. Imaging studies, laboratory studies and physical exam results were discussed and reviewed in detail. No major barriers to understanding were identified. The patient expressed understanding and agreement with the above treatment plan. The patient is aware they should contact our office by phone for worsening of the current condition or the appearance of new symptoms. Thank you for allowing me to participate in the vascular care of this patient. If you have any questions or concerns regarding the treatment for the above condition please do not hesitate to contact me. The office telephone contact is [phone]. This note is constructed using voice recognition software. While every effort has been made to ensure accuracy, silica mixer operator errors may have been included. Thank you for allowing me to participate in the care of your patient. Yours sincerely, Antony Glass MD, FACS, R.P.V.I. Orders: Orders US arterial duplex LE BI 6 Months I73.9 - Peripheral vascular disease, unspecified US abdominal aortic aneurysm 6 Months I71.43 - Infrarenal abdominal aortic aneurysm, without rupture Referrals Cardiology Referral R07.9 - Chest pain, unspecified Coding Level of Care Code Est Pt Level 4 (29994) Complex EM visit Add On G2211 Diagnoses PAD (peripheral artery disease) I73.9 Infrarenal abdominal aortic aneurysm (AAA) without rupture I71.43 Abdominal aorta location: infrarenal aorta Presence of rupture: without rupture Chronic bilateral low back pain without sciatica M54.50; G89.29 Back pain location: low back pain Chronicity: chronic Back pain laterality: bilateral Sciatica presence: without sciatica Chest pain, unspecified type R07.9 Chest pain type: unspecified
== END 2024-10-25 14:25 | disposition home or self-care (01) ==
PROVIDERS: PCP Family Medicine; Visit Provider Surgery Vascular Surgery
DX: I73.9 Peripheral vascular disease, unspecified (principal); I71.43 Infrarenal abdominal aortic aneurysm, without rupture; M54.50 Low back pain, unspecified; G89.29 Other chronic pain; R07.9 Chest pain, unspecified
CPT/HCPCS: 99214; G2211

== ENCOUNTER → 2024-10-25 13:58 | Outpatient (BNVA) | payer MEDICARE, MEDICAID, SELFPAY | PROVIDERS: PCP Family Medicine; Visit Provider Surgery Vascular Surgery | DX: I73.9 Peripheral vascular disease, unspecified (principal); I71.43 Infrarenal abdominal aortic aneurysm, without rupture; M54.50 Low back pain, unspecified; G89.29 Other chronic pain; R07.9 Chest pain, unspecified; F17.210 Nicotine dependence, cigarettes, uncomplicated | CPT/HCPCS: 99212 ==

== ENCOUNTER 2024-11-12 12:12 | Outpatient (REF) | payer MEDICARE, MEDICAID, SELFPAY ==
--- OUTSIDE RECORDS SUMMARY | 2024-11-12 13:40 | XMS_ITS | Clinical Summary ---
Author Organization [facility] Address [address] [place] [id number] Care Team Providers Care Scouring Machine Tender Name Role Phone Max Andrews MD Primary Care Provider [phone] Immunizations Name Administration Dates Next Due Pfizer SARS-CoV-2 COVID-19, mRNA, LNP-S, preservative free 01/22/2022,07/20/2021,01/07/2021,2020 Surgical History Surgery Date Site/Laterality Comments CHOLECYSTECTOMY PROCEDURE:CHOLECYSTECTOMY APPENDECTOMY PROCEDURE:APPENDECTOMY OTHER SURGICAL HISTORY PROCEDURE:pain pump OTHER SURGICAL HISTORY 2023 N/A PROCEDURE:endovascular intervension Medical History Medical History Date Comments Stroke (CMS/HCC) DX:Stroke (HCC) Hypertension DX:Hypertension Social History Tobacco Use Types Packs/Day Years Used Date Smoking Tobacco: Every Day Smokeless Tobacco: Never Alcohol Use Standard Drinks/Week Comments Never 0 (1 standard drink = 0.6 oz pur e alcohol) Sex and Gender Information Value Date Recorded Sex Assigned at Not on file Gender Identity Not on file Sexual Orientation Not on file Obstetrics History Last Filed Vital Signs Vital Sign Reading Time Taken Comments Blood Pressure 119/84 01/23/2024 11:22 AM EDT Sitting Left arm Pulse 85 01/23/2024 11:22 AM EDT Temperature - - Respiratory Rate - - Oxygen Saturation - - Inhaled Oxygen Concentration - - Weight 57.2 kg (126 lb 3.2 oz) 01/23/2024 11:22 AM EDT Height 170.7 cm (5' 7.2 ) 01/23/2024 11 :22 AM EDT Body Mass Index 19.65 01/23/2024 11:22 AM EDT Plan of Treatment Health Maintenance Due Date Last Done Comments Breast Cancer Screening 1963 Pneumococcal Vaccine: Pediatrics (0 to 5 Years) and At-Risk Patients (6 to 64 Years) (1 of 2 - PCV) 1969 Hepatitis A Vaccines (1 of 2 - Risk 2-dose series) 1982 Cervical Cancer Screening: Pap Smear 1984 Zoster Vaccines (1 of 2) 2013 Cholesterol Screening (Lipid Panel) 09/19/2022 Colorectal Cancer Screening: Colonoscopy 09/19/2022 Depression Screening 09/19/2022 HIV Screening 09/19/2022 Hepatitis C Screening 09/19/2022 Social Influencers of Health Screening 09/19/2022 Hypertension/CHF/CAD Annual BMP Blood Test 11/25/2023 DTaP,Tdap,and Td Vaccines (2 - Td or Tdap) 11/30/2023 11/30/2013 COVID-19 Vaccine ( season) 2024 01/22/2022, 07/20/2021, 01/07/2021, Additional history exists Influenza Vaccine (#1) 2024 , 08/10/2017, 08/11/2015 RSV Immunization Patients 60+ Years Old (1 - 1-dose 75+ series) 2038 HIB Vaccines Aged Out No longer eligi ble based on patient's age to complete this topic HPV Vaccines Aged Out No longer eligi ble based on patient's age to complete this topic Hepatitis B Vaccines Aged Out No long er eligible based on patient's age to complete this topic IPV Vaccines Aged Out No longer eligi ble based on patient's age to complete this topic MMR Vaccines Aged Out No longer eligi ble based on patient's age to complete this topic Meningococcal ACWY Vaccine Aged Out N o longer eligible based on patient's age to complete this topic RSV Immunization Patients Under 20 months Aged Out No longer eligible based on patient's age to complete this topic Varicella Vaccines Aged Out No longer eligible based on patient's age to complete this topic Advance Directives Documents on File Type Date Recorded Patient Computer Builder Expl anation Health Care Decision (hx) 03/16/2021 CLAUS BISWAS DIRECTIVE Care Teams Scouring Machine Tender Relationship Specialty Start Date End Date Max Andrews MD [address] [place] [address] PCP - General Internal Medicine 03/23/21
--- OUTSIDE RECORDS SUMMARY | 2024-11-12 13:40 | XMS_ITS | Continuity of Care Document ---
Author Organization [facility] Address [address] [place] [address] [address] [place] [address] Phone Care Team Providers Care Section Maintainer Name Role Phone Clinton Bundy MD, FACS, RVT Unavailable Unavailable Advance Directives Directive Yes / No Effective Date File Name No Information Encounters Encounter Description Practice Location Reason(s) For Visit Diagnoses Date Provider Providers Copied on Encounter [facility], [address], [place], [id number], tel:[phone] [address] [facility] No Information Arsenio CAMPOS FACS EDGAR Melendez. [address] [address], [place], [address], [place]. tel:[phone] Referring Provider: Max Andrews MD R, [address] [place] [address], [address]. tel:[phone] Family History Family Member Type Diagnosis Age At Onset No Information Payers Payer name Insurance type Covered alliance party ID Authoriza tion(s) No Information Social History [...]
--- OUTSIDE RECORDS SUMMARY | 2024-11-12 13:40 | XMS_ITS | Clinical Summary ---
Author Organization [facility] Address [address] [place] [address] Phone Care Team Providers Care Gate Keeper Name Role Phone Max Andrews MD Primary Care Provider [phone]- [phone] Allergies Active Allergy Reactions Criticality Noted Date Comments Amlodipine Other (see comments) 12/03/2020 Gabapentin Other (see comments) 12/03/2020 Oxycodone Other (see comments) 12/03/2020 Paroxetine Other (see comments) 12/03/2020 Medications diazePAM (VALIUM) 5 MG tablet Take 1 tablet by mouth if needed Active FLUoxetine (PROzac) 20 MG tablet Take 1 tablet by mouth 1 (one) time each day Active loratadine (CLARITIN) 10 MG tablet Take 1 tablet by mouth 1 (one) time each day Active butalbital-acet aminophen-caffe ine (FIORICET, ESGIC) 50-325-40 MG per tablet 12/01/2020 Active atorvastatin (LIPITOR) 80 MG tablet Take 1 tablet by mouth 1 (one) time each day 03/28/2021 Active aspirin (ST BUTCH) 81 MG EC tablet Take 81 mg by mouth 1 (one) time each day Active polyethylene glycol (GLYCOLAX) 17 g packet Take 17 g by mouth if needed Active spironolactone (ALDACTONE) 25 MG tablet Take 1 tablet (25 mg total) by mouth 1 (one) time each day 30 tablet 5 06/01/2023 Active labetalol (NORMODYNE) 200 MG tablet Take 1 tablet (200 mg total) by mouth in the morning and 1 tablet (200 mg total) in the evening. 60 tablet 5 06/01/2023 Active Active Problems Problem Noted Date Diagnosed Date Epigastric pain 09/07/2022 Hypertension 11/18/2021 Benign essential hypertension 12/03/2020 Resolved Problems Problem Noted Date Diagnosed Date Resolved Date Backache 11/18/2021 11/18/2021 Bipolar disorder 11/18/2021 11/18/2021 Cerebrovascular accident 11/18/202106/2022 Migraine 11/18/2021 11/18/2021 Radicular pain 11/18/2021 11/18/2021 Spinal arachnoid cyst 11/18/20212021 Hypertensive disorder 05/15/20212021 Tobacco dependence syndrome 12/03/2020 11/18/2021 Immunizations Name Administration Dates Next Due Influenza Whole 11/14/2006 Pfizer SARS-COV-2 07/20/2021,01/07/2021,12/18/19 21 Pneumococcal Polysaccharide 08/11/2015, 7 Tdap 11/30/2013 Family History Medical History Relation Comments Heart disease Father Relation Status Comments Father Mother Alive Social History Tobacco Use Types Packs/Day Years Used Date Smoking Tobacco: Former Cigarettes Smokeless Tobacco: Never Tobacco Cessation:Counseling Given: Not Answered Alcohol Use Standard Drinks/Week Comments No 0 (1 standard drink = 0.6 oz pur e alcohol) Comments Unknown Sex and Gender Information Value Date Recorded Sex Assigned at Not on file Legal Sex Female 5:10 PM EST Gender Identity Not on file Sexual Orientation Not on file Last Filed Vital Signs Vital Sign Reading Time Taken Comments Blood Pressure 130/80 06/01/2023 1:47 PM EDT Pulse 80 06/01/2023 1:47 PM EDT Temperature - - Respiratory Rate - - Oxygen Saturation 95% 05/15/2021 4:15 PM EDT Inhaled Oxygen Concentration - - Weight 57.2 kg (126 lb) 06/01/2023 1:47 PM EDT Height 167.6 cm (5' 6 ) 05/28/2020 12:00 PM EDT Body Mass Index 20.34 05/28/2020 12:00 PM EDT Plan of Treatment Health Maintenance Due Date Last Done Comments Breast Cancer Screening 1965 Colorectal Cancer Screening: Annual FOBT 2012 Colorectal Cancer Screening: Colonoscopy 2012 Colorectal Cancer Screening: Sigmoidoscopy 2012 Pneumococcal Vaccine: Pediatrics (0 to 5 Years) and At-Risk Patients (6 to 64 Years) (3 of 3 - PCV) 08/11/2016 08/11/2015, 11/14/2006 Influenza Vaccine (#1) 2024 11/14/2006 Hepatitis B Vaccine Aged Out No longe r eligible based on patient's age to complete this topic Insurance [place]ICARE [place] Care Teams Gate Keeper Relationship Specialty Start Date End Date Max Andrews MD [facility] [address] [place] [id number] PCP - General 10/20/20
--- OUTSIDE RECORDS SUMMARY | 2024-11-12 13:40 | XMS_ITS | Clinical Summary ---
Author Organization [facility] Address [address] [place] [address] Care Team Providers Care Mobile Security Architect Name Role Phone Max Andrews MD Primary Care Provider [phone]- [phone] Allergies Active Allergy Reactions Criticality Noted Date Comments Amlodipine 12/03/2020 Other reaction(s): Other (see comments) Gabapentin 12/03/2020 Other reaction(s): Other (see comments) Oxycodone Other (See Comments) 12/03/2020 Paroxetine Other (See Comments) 12/03/2020 Medications Medication Sig Dispensed Refills Start Date End Date Status Aspirin 81 MG CAPS Take by mouth. 0 Ac tive atorvastatin (LIPITOR) tablet 80 mg Take 1 tablet (80 mg total) by mouth. 0 03/28/2021 Active butalbital-acetaminop hen-caffeine 50-325-40 MG per tablet See Instructions, TAKE 1 TABLET BY MOUTH EVERY 4 HOURS NEEDED FOR HEADACHE NOT TO EXCEED 6 TABLETS/DAY, # 20 tablet, 5 Refills, Maintenance, 08/10/23 11:06:00 EDT, [facility], TAKE 1 TABLET BY MOUTH EVERY 4 HOURS NEEDED FOR HEADACHE NOT TO... 0 12/01/2020 Active labetalol (NORMODYNE) 200 MG tablet Take 1 tablet (200 mg total) by mouth. 0 06/01/2023 Active spironolactone (ALDACTONE) tablet 25 mg Take 0.5 tablets (12.5 mg total) by mouth. 0 06/01/2023 Active Social History Tobacco Use Types Packs/Day Years Used Date Smoking Tobacco: Every Day Cigarettes Smokeless Tobacco: Never Alcohol Use Standard Drinks/Week Comments Never 0 (1 standard drink = 0.6 oz pur e alcohol) Sex and Gender Information Value Date Recorded Sex Assigned at Female 06/20/2023 4:35 PM EDT Gender Identity Not on file Sexual Orientation Not on file Job Start Date Occupation Industry Not on file Not on file Not on file Last Filed Vital Signs Vital Sign Reading Time Taken Comments Blood Pressure 119/84 01/23/2024 11:22 AM EDT Pulse 85 01/23/2024 11:22 AM EDT Temperature 35.9 ??C (96.7 ??F) 01/23/2024 11:22 AM E DT Respiratory Rate - - Oxygen Saturation 94% 01/23/2024 11:22 AM EDT Inhaled Oxygen Concentration - - Weight 57.2 kg (126 lb 3.2 oz) 01/23/2024 11:22 AM EDT Height 170.7 cm (5' 7.2 ) 01/23/2024 11:22 AM ED T Body Mass Index 19.65 01/23/2024 11:22 AM EDT Plan of Treatment Health Maintenance Due Date Last Done Comments Hepatitis C Screening 1963 Depression Screening 1975 Preventative Health Evaluation 1981 Tobacco Cessation Counseling 1981 Cervical Cancer Screening (Pap Smear) 1984 Colon Cancer Screening (Colonoscopy) 2008 Breast Cancer Screening (Mammogram) 2013 Shingrix-Zoster Vaccine (1 of 2) 2013 Pneumococcal Vaccine (2 of 2 - PCV) 08/11/2016 08/11/2015, 11/14/2006 DTap / Tdap / Td (2 - Td or Tdap) 11/30/2023 11/30/2013 COVID-19 Vaccine ( season) 2024 07/15/2023, 01/22/2022, 07/20/2021, Additional history exists Influenza Vaccine (#1) 2024 , 06/29/2022, 07/21/2020, Additional history exists RSV Adult > 60+ Yrs or (1 - 1-dose 75+ series) 2038 Hepatitis B Vaccines Aged Out No long er eligible based on patient's age to complete this topic RSV Ped < 20 months Aged Out No longe r eligible based on patient's age to complete this topic Care Teams Mobile Security Architect Relationship Specialty Start Date End Date Max Andrews MD [facility] [address] [facility] [place] [address] PCP - General Family Medicine 08/23/23
[2024-11-12 15:35] LABS: Anion Gap 11 (12-20); Blood Urea Nitrogen 16 mg/dL (9-16); Carbon Dioxide 29 mmol/L (22-29); Chloride 103 mmol/L (96-108); Estimated Glomerular Filt Rate > 60; Sodium 139 mmol/L (135-145)
== END 2024-11-12 12:13 | disposition home or self-care (01) ==
LOC: HO.HMGCLDS 12:12
PROVIDERS: PCP Family Medicine; Visit Provider Internal Medicine Nephrology
DX: I10 Essential (primary) hypertension (principal)
CPT/HCPCS: 36415; 80051; 82565; 84520

== ENCOUNTER 2024-11-19 10:47 | Outpatient (AMB) | payer MEDICARE, MEDICAID, SELFPAY ==
--- NOTE | 2024-11-19 10:34 | HO.NEPHOV_ITS ---
Vital Signs 11/19/24 10:53 Height 5 ft 6 in Weight 117 lb BMI 18.9 BP 142/82 H Blood Pressure Location Lt brachial Position Sitting Intake Visit Reasons: 1 mnth/ Conf Carroting Machine Offbearer Required: No Accompanied by: Self / Same As Patient Allergies No Known Allergies [No Known Allergies*] Allergy (Verified 11/19/24 10:52) HPI Comments Details: Anastasiia was seen in follow-up of her hypertension. She is continuing to smoke. She has history of CVA with deficits which had improved and stable. She has been having peripheral arterial disease needing left external iliac plasty and stenting. She has a AAA. She may need fem to below-knee tibio peroneal trunk bypass. She claims to be compliant with her medications. She does not have any chest pain, shortness of breath, paroxysmal nocturnal dyspnea, orthopnea, pedal edema or urinary symptoms. She denies any orthostatic symptoms. [facility] Medical History Bipolar disorder CVA (cerebral vascular accident) Back pain Seasonal allergies Migraines Opioid dependence HTN (hypertension) Surgical History H/O colonoscopy (~2019) Social History Patient Tobacco Use Status: Current everyday Tobacco user Cigarette Packs Per Day: 1 Cigarettes Per Day: 7 Years Smoked: 48 Review of Systems Const All systems reviewed & are unremarkable except as noted in HPI and below Physical Exam Vital Signs: Last Vital Signs BP 142/82 H 11/19/24 10:53 BMI result Body Mass Index 18.9 Const General: comfortable and no acute distress Orientation/consciousness: patient oriented x3 HEENT Head: Yes normocephalic Mouth: Normal oral and palatal mucosa present Eyes EOM: EOMs intact bilaterally Neck Neck: Yes supple Resp Auscultation: clear to auscultation bilaterally Cardio Jugular venous distension: no JVD Rate: regular rate GI Palpation (GI): Soft to palpation Auscultation: normal bowel sounds General: Yes no CVA tenderness Back/Spine/Pelvis Back: no CVA tenderness Skin General skin exam: no rashes or lesions noted Neuro General: patient oriented x3 and moves all extremities Extrem General: Yes no pedal edema Results Reviewed Nephrology Results: Sodium 139 mmol/L (135-145) 11/12/24 Potassium 4.0 mmol/L (3.3-5.1) 11/12/24 Chloride 103 mmol/L (96-108) 11/12/24 Carbon Dioxide 29 mmol/L (22-29) 11/12/24 BUN 16 mg/dL (9-16) 11/12/24 Creatinine 0.68 mg/dL (0.5-1.4) 11/12/24 Calcium 9.8 mg/dL (8.4-10.2) 08/09/24 Urine Creatinine 226.26 mg/dL 08/09/24 Protein/Creatinin Ratio 0.12 (<0.2) 08/09/24 Assessment & Plan Assessment & Plan (1) HTN (hypertension): Code(s): I10 - Essential (primary) hypertension Category: Medical Qualifiers: Hypertension type: primary hypertension Qualified Code(s): I10 - Essential (primary) hypertension (2) PAD (peripheral artery disease): Comment: 11/16/2023 left external iliac stent Code(s): I73.9 - Peripheral vascular disease, unspecified Category: Medical (3) AAA (abdominal aortic aneurysm): Code(s): I71.40 - Abdominal aortic aneurysm, without rupture, unspecified Category: Medical Qualifiers: Abdominal aorta location: infrarenal aorta Presence of rupture: without rupture Qualified Code(s): I71.43 - Infrarenal abdominal aortic aneurysm, without rupture Plan Anastasiia has hypertension close to 30 years. She had issues with hydrochlorothiazide. She claims to have allergy to amlodipine. She has not known to have any low serum potassium, hypercalcemia or thyroid disorders. Her renal functions have been normal. She is known to have vascular disease. She has peripheral arterial disease needing left iliac artery stenting. She also had CVA in the past. She is currently on spironolactone 25 mg at noon time. She can continue Labetalol @ 400 mg bid as well but shall reduce to 300 mg bid if her BP gets controlled . She claims to be on a low-sodium diet. She should maintain good hydration. Doppler of renal arteries did not show any significant renal artery stenosis in the past. All questions answered. Follow-up appointment given Medications: Changed From labetalol 400 mg (2 x 200 mg) PO BID 30 days 120 tabs 6RF To labetalol 400 mg (4 x 100 mg) PO BID 30 days 240 tabs 6RF From spironolactone 50 mg PO DAILY 30 days 30 tabs 6RF To spironolactone 25 mg PO DAILY 30 days 30 tabs 6RF Coding Level of Care Code Est Pt Level 4 (85375) Diagnoses Primary hypertension I10 Hypertension type: primary hypertension PAD (peripheral artery disease) I73.9 Infrarenal abdominal aortic aneurysm (AAA) without rupture I71.43 Abdominal aorta location: infrarenal aorta Presence of rupture: without rupture
[2024-11-19 10:53] VITALS: BP 142/82; BMI 18.9
--- OUTSIDE RECORDS SUMMARY | 2024-11-19 11:51 | XMS_ITS | Clinical Summary ---
Author Organization [facility] Address [address] [place] [address] Phone Care Team Providers Care Cover Stitch Machine Operator Name Role Phone Max Andrews MD Primary Care Provider +1- [phone] Allergies Active Allergy Reactions Criticality Noted Date [...] [place] Care Teams Cover Stitch Machine Operator Relationship Specialty Start Date End Date Max Andrews MD [facility] [address] [place] [id number] PCP - General 10/20/20
--- OUTSIDE RECORDS SUMMARY | 2024-11-19 11:51 | XMS_ITS | Patient Health Record ---
Author Organization [facility] Address [address] [place] [address] Care Team Providers Care Board Layer Name Role Phone Max Andrews Primary Care Provider Lalo Irizarry Jr Unavailable [phone] ALLERGIES No Known Allergies REASON FOR REFERRAL No Information MEDICATIONS Medication SIG (Take, Route, Frequency, Duration) Notes Start Date End Date Status Atorvastatin Calcium 80 MG 1 tablet Orally Once a day for 30 day(s) Active Ibuprofen 600 MG 1 tablet Orally Three times a day/prn Not-Taking Omeprazole 40 MG 1 capsule Orally Once a day for 30 Not-Taking Vitamin D (Ergocalciferol) 1.25 MG (65768 UT) Oral for 84 Active MiraLax (colon prep) 17 GM/SCOOP mixed with Gatorade or Crystal Light Orally begin at 5:00 p.m. the day before the procedure for 1 day 08/01/2024 Active Aspirin 81 81 MG 1 tablet Orally Once a day for 30 day(s) 08/01/2024 Active Spironolactone 25 MG TAKE 1 TABLET BY MOUTH EVERY DAY Oral Once a day Active Quqkfbqldz-BLEB-Hlkxkfjh 50-325-40 MG 1 capsule as needed Orally every 4 hrs as needed Active Labetalol HCl 200 MG TAKE 1 TABLET BY MOUTH EVERY DAY Oral Twice a day Active IMMUNIZATIONS Vaccine Route Administration Date Status Comme nts Flu vaccine no Preserv 3 and > Unknown 07/20/2016 Admin istered Influenza Unknown 07/10/2018 Administered Influenza Unknown 07/27/2022 Administered Influenza Unknown 07/11/2024 Administered SOCIAL HISTORY Sex Assigned At : Social History Observation Description Sex Assigned At Unknown PROBLEMS Problem Type ICD Code Onset Dates Problem Status W/U Status Risk SNOMED Code Notes Problem Colon cancer screening (Z12.11) Active confirmed 510397143 Problem Epigastric pain (R10.13) Active confirmed 87083688 Problem Gastro-esophageal reflux disease without esophagitis (K21.9) Active confirmed Gastro-esophag eal reflux disease without esophagitis (974990540) Problem Gastroesophageal reflux disease without esophagitis (K21.9) Active confirmed 367619108 Problem Long-term use of aspirin therapy (Z79.82) Active confirmed 100121434 VITAL SIGNS Temperature 97.1 degrees Fahrenheit 08/01/2024 Blood pressure diastolic 00 mm Hg 08/01/2024 Height 66 in 08/01/2024 Blood pressure systolic 000 mm Hg 08/01/2024 Weight 114 lb 6 oz lbs 08/01/2024 BMI 18.46 kg/m2 08/01/2024 Encounters Encounter Location Date Provider Diagnosis [facility] [address] [place] [phone] 08/01/2024 Lalo Mcgarry Jr Gastroesophageal reflux disease without esophagitis K21.9 ; Colon cancer screening Z12.11 and Long-term use of aspirin therapy Z79.82 [facility] [address] [place] [phone] 08/01/2024 Lalo Mcgarry Jr [facility] [address] [place] [phone] 11/19/2024 Lalo Mcgarry Jr ASSESSMENTS Encounter Date Diagnosis Assessment Notes Treatment Notes Treatment Clinical Notes 08/01/2024 Colon cancer screening (ICD-10 - Z12.11) 08/01/2024 Gastroesophageal reflux disease without esophagitis (ICD-10 - K21.9) Gastroesophageal reflux disease material was printed 08/01/2024 Long-term use of aspirin therapy (ICD-10 - Z79.82) PLAN OF TREATMENT Future Test Test Name Order Date COLONOSCOPY 10/17/2014 UPPER GI ENDOSCOPY 09/14/2018 COLONOSCOPY 09/14/2018 UPPER GI ENDOSCOPY 12/13/2022 COLONOSCOPY 08/01/2024 Next Appt Details Provider Name:Lalo mustafa Jr, 06/18/2025 07:30:00 AM, [address] [place] [address] , [place], [place], [phone], Insurance Providers Payer Name Payer Address Payer Phone Subscriber Number Group Number Insured Name Patient Relationship to Insured Coverage Start Date Coverage End Date MEDICARE OF [place] [address] [place] [id number] CHIP PRAJAPATI Self - patient is the insured MEDICAID OF [facility] [address] [place] [phone] [id number] PRAJAPATI, CHIP Self - patient is the insured MEDICAL (GENERAL) HISTORY Medical History History ICD Code hypertension opioid dependence migraines allergies back pain CVA Bipolar disorder Colonoscopy 01/26/19, small tubular adeno ma, five-year followup peripheral vascular disease Gastroesophageal reflux dise ase, EGD 12/30, focal intestinal metaplasia at GE junction, repeat EGD 3-5 years Hypertension Abdominal aortic aneurysm Surgical History Surgery Date(Month/Year) appendectomy breast augmentation varicose vein stripping planter warts removed Intrathecal pain pump 10/27/2017 Cholecystectomy 2017 Left external iliac stent 11/16/2023
--- OUTSIDE RECORDS SUMMARY | 2024-11-19 11:51 | XMS_ITS ---
Author Organization [facility] Address [address] [place] [address] Care Team Providers Care Vest Busheler Name Role Phone Max Andrews Primary Care Provider Lalo Irizarry Jr Unavailable [phone] ALLERGIES No Known Allergies REASON FOR VISIT Patient presents today for a screening colonoscopy MEDICATIONS Medication SIG (Take, Route, Frequency, Duration) Notes Start Date End Date Status Atorvastatin Calcium 80 MG 1 tablet Orally Once a day for 30 day(s) Active MiraLax (colon prep) 17 GM/SCOOP mixed with Gatorade or Crystal Light Orally begin at 5:00 p.m. the day before the procedure for 1 day 08/01/2024 Active Spironolactone 25 MG TAKE 1 TABLET BY MOUTH EVERY DAY Oral Once a day Active Labetalol HCl 200 MG TAKE 1 TABLET BY MOUTH EVERY DAY Oral Twice a day Active Ibuprofen 600 MG 1 tablet Orally Three times a day/prn Not-Taking Omeprazole 40 MG 1 capsule Orally Once a day for 30 Not-Taking Vitamin D (Ergocalciferol) 1.25 MG (85855 UT) Oral for 84 Active Aspirin 81 81 MG 1 tablet Orally Once a day for 30 day(s) 08/01/2024 Active Zxqrqydifp-PNDG-Inslhgkb 50-325-40 MG 1 capsule as needed Orally every 4 hrs as needed Active PROBLEMS Problem Type ICD Code Onset Dates Problem Status W/U Status Risk SNOMED Code Notes Problem Long-term use of aspirin therapy (Z79.82) Active confirmed 409327951 VITAL SIGNS BMI 18.46 kg/m2 08/01/2024 Blood pressure systolic 000 mm Hg 08/01/20 24 Blood pressure diastolic 00 mm Hg 024 Height 66 in 08/01/2024 Temperature 97.1 degrees Fahrenheit 08/01/20 24 Weight 114 lb 6 oz lbs 08/01/2024 Encounters Encounter Location Date Provider Diagnosis [facility] [address] [place] [address] 08/01/2024 Lalo Mcgarry Jr Gastroesophageal reflux disease without esophagitis K21.9 ; Colon cancer screening Z12.11 and Long-term use of aspirin therapy Z79.82 ASSESSMENTS Encounter Date Diagnosis Assessment Notes Treatment Notes Treatment Clinical Notes 08/01/2024 Gastroesophageal reflux disease without esophagitis (ICD-10 - K21.9) Gastroesophageal reflux disease material was printed 08/01/2024 Colon cancer screening (ICD-10 - Z12.11) 08/01/2024 Long-term use of aspirin therapy (ICD-10 - Z79.82) PLAN OF TREATMENT Medication Medication Name Sig Start Date Stop Date Notes MiraLax (colon prep) 17 GM/SCOOP mixed with Gatorade or Crystal Light Orally begin at 5:00 p.m. the day before the procedure for 1 day 08/01/2024 Treatment Notes Assessment Notes Gastroesophageal reflux dise ase without esophagitis Gastroesophageal reflux disease material was printed Future Test Test Name Order Date COLONOSCOPY 08/01/2024 Next Appt Details Follow Up: 1 Year, Reason: Provider Name:Lalo mustafa Jr, 06/18/2025 07:30:00 AM, [address] [place] [address] , [place], [place], [phone],
--- OUTSIDE RECORDS SUMMARY | 2024-11-19 11:51 | XMS_ITS | Clinical Summary ---
Author Organization [facility] Address [address] [place] [address] Care Team Providers Care Sap Business Intelligence Consultant Name Role Phone Max Andrews MD Primary Care Provider +1- [phone] Allergies Active Allergy Reactions Criticality Noted Date [...] tablet, 5 Refills, Maintenance, 08/10/23 11:06:00 EDT, [facility], TAKE 1 TABLET BY MOUTH EVERY [...] age to complete this topic Care Teams Sap Business Intelligence Consultant Relationship Specialty Start Date End Date Max Andrews MD [facility] [address] [facility] [place] [address] PCP - General Family Medicine 08/23/23
--- OUTSIDE RECORDS SUMMARY | 2024-11-19 11:52 | XMS_ITS ---
Author Organization [facility] Address [address] [place] [phone] Care Team Providers Care Intake Man Name Role Phone Max Andrews Primary Care Provider Lalo Irizarry Jr REASON FOR VISIT clopidogrel Encounters Encounter Location Date Provider Diagnosis [facility] [address] [place] [phone] 08/01/2024 Lalo Mcgarry Jr PLAN OF TREATMENT Next Appt Details Provider Name:Lalo mustafa Jr, 06/18/2025 07:30:00 AM, [address] [place] [address] , [place], [place], [phone],
--- OUTSIDE RECORDS SUMMARY | 2024-11-19 11:52 | XMS_ITS | Clinical Summary ---
Author Organization [facility] Address [address] [place] [phone] Care Team Providers Care Lifter/Driver Name Role Phone Max Andrews MD Primary Care Provider +1- [phone] Immunizations Name Administration Dates Next Due Pfizer [...] at Not on file Legal Sex Female 2:06 PM EST Gender Identity Not on file [...] Last Done Comments Breast Cancer Screening 1965 Hepatitis A Vaccines (1 of 2 - Risk 2-dose series) 1982 Pneumococcal Vaccine: 50+ Years (1 of 2 - PCV) 1982 Pneumococcal Vaccine: Pediatrics (0 to 5 Years) and At-Risk Patients (6 to 64 Years) (1 of 2 - PCV) 1982 Cervical Cancer Screening: Pap Smear 1984 Zoster Vaccines (1 of 2) 2013 DTaP,Tdap,and Td Vaccines (2 - Td or Tdap) 12/28/2013 11/30/2013 Cholesterol Screening (Lipid Panel) 09/19/2022 Colorectal Cancer Screening: Colonoscopy 09/19/2022 Depression Screening 09/19/2022 HIV Screening 09/19/2022 Hepatitis C Screening 09/19/2022 Social Influencers of Health Screening 09/19/2022 Hypertension/CHF/CAD Annual BMP Blood Test 11/25/2023 COVID-19 Vaccine ( season) 2024 01/22/2022, 07/20/2021, [...] patient's age to complete this topic Meningococcal B Vacine Aged Out No lo nger eligible based on patient's age to complete this topic RSV Immunization Patients Under 20 months Aged Out No longer eligible based on patient's age to complete this topic Varicella Vaccines Aged Out No longer eligible based on patient's age to complete this topic Advance Directives Documents on File Type Date Recorded Patient Laser/Electro Optics Technician Expl anation Health Care Decision (hx) 03/16/2021 CLAUS BISWAS DIRECTIVE Care Teams Lifter/Driver Relationship Specialty Start Date End Date Max Andrews MD [address] [place] [address] PCP - General Internal Medicine 03/23/21
== END 2024-11-19 11:10 | disposition home or self-care (01) ==
PROVIDERS: PCP Family Medicine; Visit Provider Internal Medicine Nephrology
DX: I10 Essential (primary) hypertension (principal); I73.9 Peripheral vascular disease, unspecified; I71.43 Infrarenal abdominal aortic aneurysm, without rupture
CPT/HCPCS: 99214

== ENCOUNTER → 2024-11-19 10:47 | Outpatient (BNVA) | payer MEDICARE, MEDICAID, SELFPAY | PROVIDERS: PCP Family Medicine; Visit Provider Internal Medicine Nephrology | DX: I10 Essential (primary) hypertension (principal); I73.9 Peripheral vascular disease, unspecified; I71.43 Infrarenal abdominal aortic aneurysm, without rupture | CPT/HCPCS: 99212 ==

== ENCOUNTER → 2025-01-14 13:44 | Outpatient (BNVA) | payer MEDICARE, MEDICAID, SELFPAY | PROVIDERS: PCP Family Medicine; Visit Provider Internal Medicine Cardiovascular Disease | DX: Z13.89 Encounter for screening for other disorder (principal) ==

== ENCOUNTER 2025-01-16 11:05 | Outpatient (AMB) | payer MEDICARE, MEDICAID, SELFPAY ==
--- NOTE | 2025-01-16 11:10 | HO.NEPHOV ---
Vital Signs 01/16/25 11:11 Height 5 ft 6 in Weight 110 lb 4 oz BMI 17.8 BP 130/80 Blood Pressure Location Lt brachial Position Sitting Intake Visit Reasons: Hypertension-LVM Customer Retention Representative Required: No Accompanied by: Self / Same As Patient Allergies No Known Allergies [No Known Allergies*] Allergy (Verified 01/16/25 11:10) HPI Comments Details: Anastasiia was seen in follow-up of her hypertension. She is continuing to smoke. She has history of CVA with deficits which had improved and stable. She has been having peripheral arterial disease needing left external iliac plasty and stenting. She has a AAA. She may need fem to below-knee tibio peroneal trunk bypass. She claims to be compliant with her medications. She does not have any chest pain, shortness of breath, paroxysmal nocturnal dyspnea, orthopnea, pedal edema or urinary symptoms. She denies any orthostatic symptoms. She sees Dr Dunn in [facility] Medical History Bipolar disorder CVA (cerebral vascular accident) Back pain Seasonal allergies Migraines Opioid dependence HTN (hypertension) Surgical History H/O colonoscopy (~2019) Social History Patient Tobacco Use Status: Current everyday Tobacco user Cigarette Packs Per Day: 1 Cigarettes Per Day: 7 Years Smoked: 48 Review of Systems Const All systems reviewed & are unremarkable except as noted in HPI and below Physical Exam Vital Signs: Last Vital Signs BP 130/80 01/16/25 11:11 BMI result Body Mass Index 17.8 Const General: comfortable and no acute distress Orientation/consciousness: patient oriented x3 HEENT Head: Yes normocephalic Mouth: Normal oral and palatal mucosa present Eyes EOM: EOMs intact bilaterally Neck Neck: Yes supple Resp Auscultation: clear to auscultation bilaterally Cardio Jugular venous distension: no JVD Rate: regular rate GI Palpation (GI): Soft to palpation Auscultation: normal bowel sounds General: Yes no CVA tenderness Back/Spine/Pelvis Back: no CVA tenderness Skin General skin exam: no rashes or lesions noted Neuro General: patient oriented x3 and moves all extremities Extrem General: Yes no pedal edema Results Reviewed Nephrology Results: Sodium 139 mmol/L (135-145) 11/12/24 Potassium 4.0 mmol/L (3.3-5.1) 11/12/24 Chloride 103 mmol/L (96-108) 11/12/24 Carbon Dioxide 29 mmol/L (22-29) 11/12/24 BUN 16 mg/dL (9-16) 11/12/24 Creatinine 0.68 mg/dL (0.5-1.4) 11/12/24 Assessment & Plan Assessment & Plan (1) HTN (hypertension): Code(s): I10 - Essential (primary) hypertension Category: Medical Qualifiers: Hypertension type: primary hypertension Qualified Code(s): I10 - Essential (primary) hypertension Plan Anastasiia has hypertension over 30 years. She had issues with hydrochlorothiazide. She claims to have allergy to amlodipine. She has not known to have any low serum potassium, hypercalcemia or thyroid disorders. Her renal functions have been normal. She is known to have vascular disease. She has peripheral arterial disease needing left iliac artery stenting. She also had CVA in the past. She is currently on spironolactone 25 mg at noon time. She can continue Labetalol @ 400 mg bid as well but shall reduce to 300 mg bid if her BP gets controlled . She claims to be on a low-sodium diet. She should maintain good hydration. Doppler of renal arteries did not show any significant renal artery stenosis in the past. All questions answered. Follow-up appointment given Orders: Orders Creatinine 6 Months I10 - Essential (primary) hypertension Blood Urea Nitrogen 6 Months I10 - Essential (primary) hypertension Electrolytes 6 Months I10 - Essential (primary) hypertension Calcium 6 Months I10 - Essential (primary) hypertension Coding Level of Care Code Est Pt Level 4 (20599) Diagnoses Primary hypertension I10 Hypertension type: primary hypertension
[2025-01-16 11:11] VITALS: BP 130/80; BMI 17.8
--- OUTSIDE RECORDS SUMMARY | 2025-01-16 13:06 | XMS_ITS | Clinical Summary ---
Author Organization [facility] Address [address] [place] [address] Care Team Providers Care Choir Member Name Role Phone Max Andrews MD Primary Care Provider +1- [phone] Allergies Active Allergy Reactions Criticality Noted Date [...] tablet, 5 Refills, Maintenance, 08/10/23 11:06:00 EDT, [facility], TAKE 1 TABLET BY MOUTH EVERY [...] age to complete this topic Care Teams Choir Member Relationship Specialty Start Date End Date Max Andrews MD [facility] [address] [facility] [place] [phone] PCP - General Family Medicine 08/23/23
--- OUTSIDE RECORDS SUMMARY | 2025-01-16 13:06 | XMS_ITS ---
Author Organization [facility] Address [address] [place] [address] Care Team Providers Care Refinisher Name Role Phone Max Andrews Primary Care Provider Lalo Irizarry Jr Unavailable Allergies No Known Allergies REASON FOR VISIT Patient presents today for a screening colonoscopy Medications Medication SIG (Take, Route, Frequency, Duration) Notes [...] 30 Not-Taking Vitamin D (Ergocalciferol) 1.25 MG (77530 UT) Oral for 84 Active Aspirin 81 81 MG 1 tablet Orally Once a day for 30 day(s) 08/01/2024 Active Uechntgpmf-IFXL-Zioylpyh 50-325-40 MG 1 capsule as needed Orally every 4 hrs as needed Active Problems Problem Type SNOMED Code ICD Code Onset Dates Problem Status W/U Status Risk Notes Problem 843263349 Long-term use of aspirin therapy (Z79.82) Active confirmed Vital Signs Temperature 97.1 degrees Fahrenheit 08/01/20 24 Blood pressure systolic 000 mm Hg 10/23/20 24 Blood pressure diastolic 00 mm Hg 024 Height 66 in 08/01/2024 Weight 114 lb 6 oz lbs 08/01/2024 BMI 18.46 kg/m2 08/01/2024 Encounters Encounter Location Date Provider Diagnosis [facility] [address] [place] [address] 08/01/2024 Lalo Zeferino Escoto Gastroesophageal reflux disease without esophagitis K21.9 ; Colon cancer screening Z12.11 and Long-term use of aspirin therapy Z79.82 Assessments Encounter Date Diagnosis (ICD Code) Assessment Notes Treatment Notes Treatment Clinical Notes Section Notes 08/01/2024 Gastroesophageal reflux disease without esophagitis (ICD-10 - K21.9) Gastroesophageal reflux disease material was printed At this time, she is doing well. We discussed diet, lifestyle modifications , and weight management regarding the treatment of reflux. She can use simethicone for her belching symptoms. She is due for colonoscopy. This will be arranged. She understands risks and benefits and agrees to proceed. She is advised to stop aspirin one week before the procedure and oral July the day before the procedure. Today's visit was 30 minutes. 08/01/2024 Colon cancer screening (ICD-10 - Z12.11) At this time, she is doing well. We discussed diet, lifestyle modifications , and weight management regarding the treatment of reflux. She can use simethicone for her belching symptoms. She is due for colonoscopy. This will be arranged. She understands risks and benefits and agrees to proceed. She is advised to stop aspirin one week before the procedure and oral July the day before the procedure. Today's visit was 30 minutes. 08/01/2024 Long-term use of aspirin therapy (ICD-10 - Z79.82) At this time, she is doing well. We discussed diet, lifestyle modifications , and weight management regarding the treatment of reflux. She can use simethicone for her belching symptoms. She is due for colonoscopy. This will be arranged. She understands risks and benefits and agrees to proceed. She is advised to stop aspirin one week before the procedure and oral July the day before the procedure. Today's visit was 30 minutes. Plan Of Treatment Medication Medication Name Sig Start Date Stop [...] Provider Name:Lalo mustafa Jr, 06/18/2025 07:30:00 AM, [address] [place] [address] , [place], [place], [phone], Progress Notes * EDGAR PRAJAPATIOB:1965 ( 58 yo F)Acc No.[id number]:08/01/2024 Progress Notes Patient:?CHIP PRAJAPATI Provider:?Lalo Mcgarry MD :1965???Age:58 Y???Sex:Female D ate:08/01/2024 Address:[address] [place], [place] [phone] Pcp:Max Andrews Subjective: * Chief Complaints: * ???1. Patient presents today for a screening colonoscopy. * HPI: ???New symptom(s):? The patient is a pleasant 58-year-old woman seen today in followup of Sandoval's esophagus and colon cancer screening. She was last seen for upper endoscopy in December of 2022 which showed intestinal metaplasia at the EG junction. There was no dysplasia. Five-year followup endoscopy was recommended. We reviewed this today. ?Symptoms today that she complains of include postprandial belching. She continues to control her reflux with diet. She has no dysphagia, hematemesis, or melena. Weight and appetite have been stable. ?She tries to follow a high-fiber diet which helps with irregularity regarding her bowels. She has no rectal bleeding, rectal pain, or abdominal pain. * Medical History:?Hypertensio n, Opioid dependence, Migraines, Allergies, Back pain, CVA, Bipolar disorder, Colonoscopy 01/26/19, small tubular adenoma, five-year followup, peripheral vascular disease, Gastroesophageal reflux disease, EGD 12/30, focal intestinal metaplasia at GE junction, repeat EGD 3-5 years, Hypertension, Abdominal aortic aneurysm. * Surgical History:?appendecto my , breast augmentation , varicose vein stripping , planter warts removed , Intrathecal pain pump 10/27/2017, Cholecystectomy 2016, Left external iliac stent 11/16/2023. * Family History:?Father: dece ased, diagnosed with Heart disease.?Mother: , diagnosed with Heart disease.? No family history of liver cancer or colon cancer. * Social History:?Tobacco Use:?Tobacco Use/Smoking?Patient is a: current smoker , How often do you smoke cigarettes?: every day, How many cigarettes a day do you smoke?: -20, How soon after you wake up do you smoke your first cigarette?: within 5 minutes, Are you interested in quitting?: Thinking about quitting.?Drugs/Alcohol:?Alcohol Screen?Points: 0, Interpretation: Negative.?Miscellaneous:?Marital status: . Occupation: unemployed. * Medications:?Taking Atorvast atin Calcium 80 MG Tablet 1 tablet Orally Once a day, Taking Labetalol HCl 200 MG Tablet TAKE 1 TABLET BY MOUTH EVERY DAY Oral Twice a day, Taking Spironolactone 25 MG Tablet TAKE 1 TABLET BY MOUTH EVERY DAY Oral Once a day, Taking Hwypoofwve-QSFS-Srtsbtpw 50-325-40 MG Capsule 1 capsule as needed Orally every 4 hrs, Notes: as needed, Taking Vitamin D (Ergocalciferol) 1.25 MG (79829 UT) Capsule Oral , Taking Aspirin 81 81 MG Tablet Delayed Release 1 tablet Orally Once a day, Not-Taking/PRN Ibuprofen 600 MG Tablet 1 tablet Orally Three times a day/prn, Not-Taking/PRN Omeprazole 40 MG Capsule Delayed Release 1 capsule Orally Once a day, Discontinued FLUoxetine HCl 20 MG Capsule TAKE 1 TABLET BY MOUTH EVERY DAY Oral Once a day, Discontinued Fluticasone Propionate 50 MCG/ACT Suspension TAKE 1 TABLET BY MOUTH EVERY DAY Nasal Once a day/prn, Discontinued Gabapentin 300 MG Capsule 1 capsule Orally Three times a day, Discontinued diazePAM 5 MG Tablet 1 tablet as needed Orally Twice a day, Discontinued Loratadine 10 MG Tablet 1 tablet Orally Once a day, Discontinued Pantoprazole Sodium 20 MG Tablet Delayed Release 1 tablet Orally Once a day, Medication List reviewed and reconciled with the patient * Allergies:?N.K.D.A. Objective: * Vitals:?Wt: 114 lb 6 oz, Ht: 66 in, BMI:18.46 Index, BP: 000/00 mm Hg, Temp: 97.1. * Examination: ???General Examination: ???On examination today, she appears well. Skin is anicteric. Lungs are clear. Heart shows regular rate and rhythm. Abdomen is soft without focal mass or tenderness. Extremities are without edema. Assessment: * Assessment: 1.?Gastroesophageal reflux d isease without esophagitis - K21.9 (Primary)?2.?Colon cancer screening - Z12.11?3.?Long-term use of aspirin therapy - Z79.82? At this time, she is doing w ell. We discussed diet, lifestyle modifications, and weight management regarding the treatment of reflux. She can use simethicone for her belching symptoms. She is due for colonoscopy. This will be arranged. She understands risks and benefits and agrees to proceed. She is advised to stop aspirin one week before the procedure and oral October the day before the procedure. Today's visit was 30 minutes. Plan: * Treatment: 2.?Colon cancer screening? Start MiraLax (colon prep) Powder, 17 GM/SCOOP, mixed with Gatorade or Crystal Light, Orally, begin at 5:00 p.m. the day before the procedure, 1 day, 8.3 Ounce, Refills 0.?Procedure: COLONOSCOPY (Ordered for 08/01/2024) * Procedure Codes:?3017F COLOR ECTAL CA SCREEN DOC REV, G9902 Pt scrn tbco and id as user, G9744 PATIENT NOT ELIG D/T ACTIVE DX HTN * Preventive Medicine:? ??Counseling:?Care goal follow-up plan:?Below Normal BMI Follow-up?Dietary education for weight gain,?BMI management provided?Yes.?Smoking?Patient counseled on the dangers of tobacco use and urged to quit.?08/01/2024,?Relapse prevention:?Discussed the importance of a supportive environment and helped identify them..? * Follow Up:?1 Year * * Sign off status: Completed true * Provider:?Lalo Mcgarry MD Date:?1 Generated for Maurizio antony/Yuliana/Yudiitting on:?01/16/2025 01:06 PM EDT History and Physical Notes * HPI (History of Present Illness) Category Sub-Category Detail Notes Category Not es New symptom(s) The patient is a pleasant 58-year-old woman seen today in followup of Sandoval's esophagus and colon cancer screening. She was last seen for upper endoscopy in December of 2022 which showed intestinal metaplasia at the EG junction. There was no dysplasia. Five-year followup endoscopy was recommended. We reviewed this today. Symptoms today that she complains of include postprandial belching. She continues to control her reflux with diet. She has no dysphagia, hematemesis, or melena. Weight and appetite have been stable. She tries to follow a high-fiber diet which helps with irregularity regarding her bowels. She has no rectal bleeding, rectal pain, or abdominal pain. Examination Category Sub-Category Detail Notes Category Not es General Examination On exami nation today, she appears well. Skin is anicteric. Lungs are clear. Heart shows regular rate and rhythm. Abdomen is soft without focal mass or tenderness. Extremities are without edema.
--- OUTSIDE RECORDS SUMMARY | 2025-01-16 13:06 | XMS_ITS | Patient Health Record ---
Author Organization [facility] Address [address] [place] [address] Care Team Providers Care Etl Informatica Architect Name Role Phone Max Andrews Primary Care Provider Lalo Irizarry Jr Unavailable [phone] Allergies No Known Allergies Reason For Referral No Information Medications Medication SIG (Take, Route, Frequency, Duration) Notes Start Date End Date Status Atorvastatin Calcium 80 MG 1 tablet Orally Once a day for 30 day(s) Active Ibuprofen 600 MG 1 tablet Orally Three times a day/prn Not-Taking Omeprazole 40 MG 1 capsule Orally Once a day for 30 Not-Taking Vitamin D (Ergocalciferol) 1.25 MG (79341 UT) Oral for 84 Active MiraLax (colon prep) 17 GM/SCOOP mixed with Gatorade or Crystal Light Orally begin at 5:00 p.m. the day before the procedure for 1 day 08/01/2024 Active Aspirin 81 81 MG 1 tablet Orally Once a day for 30 day(s) 08/01/2024 Active Spironolactone 25 MG TAKE 1 TABLET BY MOUTH EVERY DAY Oral Once a day Active Wyclggkwbs-VUKT-Tujthuec 50-325-40 MG 1 capsule as needed Orally every 4 hrs as needed Active Labetalol HCl 200 MG TAKE 1 TABLET BY MOUTH EVERY DAY Oral Twice a day Active Immunizations Vaccine Route Administration Date Status Comme nts Flu vaccine no Preserv 3 and > Unknown 07/20/2016 Admin istered Influenza Unknown 07/10/2018 Administered Influenza Unknown 07/27/2022 Administered Influenza Unknown 07/11/2024 Administered Problems Problem Type SNOMED Code ICD Code Onset Dates Problem Status W/U Status Risk Notes Problem 846378548 Colon cancer screening (Z12.11) Active confirmed Problem 24700253 Epigastric pain (R10.13) Active confirmed Problem Gastro-esophage al reflux disease without esophagitis (429934892) Gastro-esophageal reflux disease without esophagitis (K21.9) Active confirmed Problem 365345650 Gastroesophageal reflux disease without esophagitis (K21.9) Active confirmed Problem 619584271 Long-term use of aspirin therapy (Z79.82) Active confirmed Vital Signs Temperature 97.1 degrees Fahrenheit 08/01/2024 Blood pressure diastolic 00 mm Hg 08/01/2024 Height 66 in 08/01/2024 Blood pressure systolic 000 mm Hg 08/01/2024 Weight 114 lb 6 oz lbs 08/01/2024 BMI 18.46 kg/m2 08/01/2024 Encounters Encounter Location Date Provider Diagnosis [facility] [address] [place] [address] 08/01/2024 Lalo Mcgarry Jr Gastroesophageal reflux disease without esophagitis K21.9 ; Colon cancer screening Z12.11 and Long-term use of aspirin therapy Z79.82 [facility] [address] [place] [phone] 08/01/2024 Lalo Mcgarry Jr [facility] [address] [place] [address] 11/19/2024 Lalo Mcgarry Jr Assessments Encounter Date Diagnosis (ICD Code) Assessment Notes Treatment Notes Treatment Clinical Notes Section Notes 08/01/2024 Colon cancer screening (ICD-10 - [...] procedure. Today's visit was 30 minutes. 08/01/2024 Gastroesophageal reflux disease without esophagitis (ICD-10 [...] visit was 30 minutes. Plan Of Treatment Future Test Test Name Order Date COLONOSCOPY 10/17/2014 UPPER GI ENDOSCOPY 09/14/2018 COLONOSCOPY 09/14/2018 UPPER GI ENDOSCOPY 12/13/2022 COLONOSCOPY 08/01/2024 Next Appt Details Provider Name:Lalo mustafa Jr, 06/18/2025 07:30:00 AM, [address] [place] [address] , [place], [place], [phone], Insurance Providers Payer Name Payer Address Payer Phone Subscriber Number Group Number Insured Name Patient Relationship to Insured Coverage Start Date Coverage End Date MEDICARE OF [place] [address] [place] [address] [id number] CHIP PRAJAPATI Self - patient is the insured MEDICAID OF [facility] [address] [place] [address] [id number] CHIP PRAJAPATI Self - patient is the insured Medical (General) History Medical History History ICD Code hypertension opioid [...]
--- OUTSIDE RECORDS SUMMARY | 2025-01-16 13:06 | XMS_ITS ---
Author Organization [facility] Address [address] [place] [address] Care Team Providers Care Form Raiser Name Role Phone Max Andrews Primary Care Provider Lalo Irizarry Jr Encounters Encounter Location Date Provider Diagnosis [facility] [address] [place] [phone] 11/19/2024 Lalo Mcgarry Jr Plan Of Treatment Next Appt Details Provider Name:Lalo mustafa Jr, 06/18/2025 07:30:00 AM, [address] [place] [address] , [place], [place], [phone], Progress Notes * EDGAR PRAJAPATIOB:1965 ( 59 yo F)Acc No.[id number]:11/19/2024 Patient:?CHIP PRAJAPATI :1965???Age:59 Y???Sex:Female Address:[place], [address] * true * Date:? Generated for Printi ng/Fachelsyg/eTransmitting on:?01/16/2025 01:06 PM EDT
--- OUTSIDE RECORDS SUMMARY | 2025-01-16 13:06 | XMS_ITS ---
Author Organization [facility] Address [address] [place] [address] Care Team Providers Care Parquetry Layer Name Role Phone Max Andrews Primary Care Provider Lalo Irizarry Jr [phone] REASON FOR VISIT clopidogrel Encounters Encounter Location Date Provider Diagnosis [facility] [address] [place] [phone] 08/01/2024 Lalo Mcgarry Jr Plan Of Treatment Next Appt Details Provider Name:Lalo mustafa Jr, 06/18/2025 07:30:00 AM, [address] [place] [address] , [place], [place], [phone], Progress Notes * PRAJAPATIEDGAR ColeOB:1965 ( 58 yo F)Acc No.[id number]:08/01/2024 Patient:?CHIP PRAJAPATI :1965???Age:58 Y???Sex:Female Address:[place], [address] * true * Date:? Generated for Printi ng/Fachelsyg/eTransmitting on:?01/16/2025 01:06 PM EDT
--- OUTSIDE RECORDS SUMMARY | 2025-01-16 13:06 | XMS_ITS | Clinical Summary ---
Author Organization [facility] Address [address] [place] [address] Care Team Providers Care Slabber Light Name Role Phone Max Andrews MD Primary Care Provider +1- [phone] Immunizations Name Administration Dates Next Due Pfizer [...] Comments Breast Cancer Screening 1965 Pneumococcal Vaccine: 50+ Years (1 of 2 [...] 07/20/2021, 01/07/2021, Additional history exists Influenza Vaccine (Season Ended) 2025 07/21/2020, 08/10/2017, 08/11/2015 RSV Immunization Adult Patients (1 - 1-dose 75+ series) 2038 HIB Vaccines Aged Out No longer eligi ble based on patient's age to complete this topic HPV Vaccines Aged Out No longer eligi ble based on patient's age to complete this topic Hepatitis A Vaccines Aged Out No long er eligible [...] age to complete this topic Meningococcal B Vaccine Aged Out No l onger eligible based on patient's age to complete this topic RSV Immunization Patients Under 20 months Aged Out No longer eligible based on patient's age to complete this topic Varicella Vaccines Aged Out No longer eligible based on patient's age to complete this topic Advance Directives Documents on File Type Date Recorded Patient Suit Attendant Expl anation Health Care Decision (hx) 03/16/2021 CLAUS BISWAS DIRECTIVE Care Teams Slabber Light Relationship Specialty Start Date End Date Max Andrews MD [address] [place] [address] PCP - General Internal Medicine 03/23/21
--- OUTSIDE RECORDS SUMMARY | 2025-01-16 13:06 | XMS_ITS | Clinical Summary ---
Author Organization [facility] Address [address] [place] [address] Phone Care Team Providers Care Actuarial Science Teacher Name Role Phone Max Andrews MD Primary Care Provider +1- [phone] Allergies Active Allergy Reactions Criticality Noted Date [...] - PCV) 08/11/2016 08/11/2015, 11/14/2006 Influenza Vaccine (Season Ended) 2025 11/14/2006 Hepatitis B Vaccine Aged Out No longe r eligible based on patient's age to complete this topic Insurance MEDICARE [place]ID [place] Care Teams Actuarial Science Teacher Relationship Specialty Start Date End Date Max Andrews MD [facility] [address] [place] [phone] PCP - General 10/20/20
== END 2025-01-16 11:27 | disposition home or self-care (01) ==
LOC: HO.HKA 11:05
PROVIDERS: PCP Family Medicine; Visit Provider Internal Medicine Nephrology
DX: I10 Essential (primary) hypertension (principal)
CPT/HCPCS: 99214

== ENCOUNTER → 2025-01-16 11:05 | Outpatient (BNVA) | payer MEDICARE, MEDICAID, SELFPAY | PROVIDERS: PCP Family Medicine; Visit Provider Internal Medicine Nephrology | DX: I10 Essential (primary) hypertension (principal) | CPT/HCPCS: 99212 ==

== ENCOUNTER 2025-07-12 12:00 | Outpatient (REF) | payer MEDICARE, MEDICAID, SELFPAY ==
--- OUTSIDE RECORDS SUMMARY | 2025-02-12 03:30 | XMS_ITS ---
Author Organization [facility] Address [address] [place] [address] Care Team Providers Care Automatic Oven Operator Name Role Phone Max Andrews Primary Care Provider Lalo Irizarry Jr REASON FOR VISIT screening Encounters Encounter Location Date Provider Diagnosis [facility] Outpatient [address] [place], [place] [phone] 02/12/2025 Lalo Mcgarry Jr Plan Of Treatment Next Appt Details Provider Name:Lalo mustafa Jr, 10/16/2025 11:10:00 AM, [address], [address], [place], [address], Progress Notes * EDGAR PRAJAPATIOB:1965 ( 59 yo F)Acc No.[id number]:02/12/2025 COLON WITH MAC Patient: CHIP SAMS Provider: Dax Mcgarry MD :1965 A ge:59 Y S ex:Female Date:02/12/2025 Address:[place] Pcp:Max Andrews Subjective: * Chief Complaints: * 1 . Screening. * Medical History: Objective: * Vitals: Assessment: Plan: * Treatment: * * The named appointment provid er may or may not be the originator of this progress note, and it is not deemed complete until electronically signed by the appointment provider. Sign off status: Pending * Provider: Dax Mcgarry MD Date: 0 02/12/2025 Generated for Maurizio antony/Yuliana/Rian on: 1 12:56 PM EDT
--- OUTSIDE RECORDS SUMMARY | 2025-06-18 03:30 | XMS_ITS ---
Author Organization [facility] Address [address] [place] [address] Care Team Providers Care Service Or Work Dispatcher Name Role Phone Max Andrews Primary Care Provider Lalo Irizarry Jr REASON FOR VISIT screening Encounters Encounter Location Date Provider Diagnosis [facility] Outpatient [address] [place], [place] [phone] 06/18/2025 Lalo Mcgarry Jr Plan Of Treatment Next Appt Details Provider Name:Lalo mustafa Jr, 10/16/2025 11:10:00 AM, [address], [address], [place], [address], Progress Notes * EDGAR PRAJAPATIOB:1965 ( 59 yo F)Acc No.[id number]:06/18/2025 COLON WITH MAC Patient: CHIP SAMS Provider: Dax Mcgarry MD :1965 A ge:59 Y S ex:Female Date:06/18/2025 Address:[id number] Pcp:Max Andrews Subjective: * Chief Complaints: * 1 . Screening. * Medical History: Objective: * Vitals: Assessment: Plan: * Treatment: * * The named appointment provid er may or may not be the originator of this progress note, and it is not deemed complete until electronically signed by the appointment provider. Sign off status: Pending * Provider: Dax Mcgarry MD Date: 0 06/18/2025 Generated for Maurizio antony/Yuliana/Rian on: 1 12:56 PM EDT
--- OUTSIDE RECORDS SUMMARY | 2025-07-12 12:56 | XMS_ITS | Clinical Summary ---
Author Organization [facility] Address [address] [place] [address] Care Team Providers Care Risk Advisor Name Role Phone Max Andrews MD Primary Care Provider +1- [phone] Immunizations Immunization Administration Dates Next Due Pfizer SARS-CoV-2 COVID-19, mRNA, LNP-S, preservative free 01/22/2022,07/20/2021,01/07/2021,2020 Surgical History Surgery Date Site/Laterality Comments CHOLECYSTECTOMY PROCEDURE:CHOLECYSTECTOMY APPENDECTOMY PROCEDURE:APPENDECTOMY OTHER SURGICAL HISTORY PROCEDURE:pain pump OTHER SURGICAL HISTORY 2023 N/A PROCEDURE:endovascular intervension Medical History Medical History Date Comments Stroke (CMS/HCC V24, CMS/HCC V28) DX:Stroke ([facility]) Hypertension DX:Hypertension Social History Tobacco Use Types [...] Breast Cancer Screening 1965 Colorectal Cancer Screening: Colonoscopy 1965 Pneumococcal Vaccine: 50+ Years (1 of 2 - PCV) 1982 Cervical Cancer Screening: Pap Smear 1984 Zoster Vaccines (1 of 2) 2013 Cholesterol Screening (Lipid Panel) 09/19/2022 HIV Screening 09/19/2022 Hepatitis C Screening 09/19/2022 Social Influencers of Health Screening 09/19/2022 Hypertension/CHF/CAD Annual BMP Blood Test 11/25/2023 DTaP,Tdap,and Td Vaccines (2 - Td or Tdap) 11/30/2023 11/30/2013 Depression Screening 10/10/2024 COVID-19 Vaccine ( season) 2025 01/22/2022, 07/20/2021, 01/07/2021, Additional history exists Influenza Vaccine (#1) 2025 , 08/10/2017, 08/11/2015 RSV Immunization Adult Patients (1 [...] Documents on File Type Date Recorded Patient Skein Tier Expl anation Health Care Decision (hx) 03/16/2021 CLAUS BISWAS DIRECTIVE Care Teams Risk Advisor Relationship Specialty Start Date End Date Max Andrews MD [facility] [address] [place] [address] PCP - General Internal Medicine 03/23/21
--- OUTSIDE RECORDS SUMMARY | 2025-07-12 12:56 | XMS_ITS | Encounter Summary ---
Author Organization [facility] Address [address] [place] [address] [place] [address] Phone Care Team Providers Care Audio Production Manager Name Role Phone Unknown, Unknown Primary Care Provider Max Patel MD Primary Care Provider + Encounter Details Date Type Department Care Team (Late st Contact Info) Description 01/03/2023 Procedure Pass [facility], [address] [address] Social History Tobacco Use Types Packs/Day Years Used Date Smoking Tobacco: Never Assessed Comments Unknown Sex and Gender Information Value Date Recorded Sex Assigned at Not on file Legal Sex Female 9:43 PM EDT Gender Identity Not on file Sexual Orientation Not on file documented as of this encounter Plan of Treatment Upcoming Encounters Date Type Department Care Team (Latest Contact Info) Description 10/15/2025 Procedure Pass [facility] [address] [place] [address] 10/15/2025 1:00 PM EST Hospital Encounter [facility] [address] [place] [address] Guillermo Malave MD [address] [place] [address] [email or web address] 10/15/2025 1:00 PM EST - 10/15/2025 1:51 PM EST Surgery [facility] [address] [place] [address] Guillermo Malave MD [address] [place] [address] [email or web address] Reprogram and Refill Pain Pump documented as of this encounter Visit Diagnoses Not on filedocumented in this encounter Care Teams Audio Production Manager Relationship Specialty Start Date End Date Unknown, Unknown, MD PCP - General 01/05/23 07/20/23 Max Andrews MD [address] [place] [address] PCP - General Family Medicine 07/21/23 documented as of this encounter Additional Source Comments The information contained in this document represents components of the legal health record. It is not the complete legal health record.[facility]
--- OUTSIDE RECORDS SUMMARY | 2025-07-12 12:56 | XMS_ITS | Patient Health Record ---
Author Organization [facility] Address [address] [place] [address] Care Team Providers Care Marketing Forecaster Name Role Phone Max Andrews Primary Care Provider Lalo Irizarry Jr Unavailable Allergies No Known Allergies Reason For Referral [...] 30 Not-Taking Vitamin D (Ergocalciferol) 1.25 MG (23851 UT) Oral for 84 Active MiraLax (colon prep) 17 GM/SCOOP mixed with Gatorade or Crystal Light Orally begin at 5:00 p.m. the day before the procedure for 1 day 08/01/2024 Active Aspirin 81 81 MG 1 tablet Orally Once a day for 30 day(s) 08/01/2024 Active Spironolactone 25 MG TAKE 1 TABLET BY MOUTH EVERY DAY Oral Once a day Active Palaiahwsx-FBOL-Ljwcrmiy 50-325-40 MG 1 capsule as needed Orally [...] Problem Status W/U Status Risk Notes Problem 261999469 Colon cancer screening (Z12.11) Active confirmed Problem 29885024 Epigastric pain (R10.13) Active confirmed Problem Gastro-esophage al reflux disease without esophagitis (195555569) Gastro-esophageal reflux disease without esophagitis (K21.9) Active confirmed Problem 865837279 Gastroesophageal reflux disease without esophagitis (K21.9) Active confirmed Problem 753987004 Long-term use of aspirin therapy (Z79.82) Active confirmed Vital Signs Temperature 97.1 degrees Fahrenheit 08/01/2024 Blood pressure diastolic 00 mm Hg 08/01/2024 Height 66 in 08/01/2024 Blood pressure systolic 000 mm Hg 08/01/2024 Weight 114 lb 6 oz lbs 08/01/2024 BMI 18.46 kg/m2 08/01/2024 Encounters Encounter Location Date Provider Diagnosis [facility] [address] [place] [phone] 08/01/2024 Lalo Mcgarry Jr Gastroesophageal reflux disease without esophagitis K21.9 ; Colon cancer screening Z12.11 and Long-term use of aspirin therapy Z79.82 [facility] [address] [place] [phone] 08/01/2024 Lalo Mcgarry Jr [facility] [address] [place] [phone] 11/19/2024 Lalo Mcgarry Jr [facility] [address] [place] [phone] 06/17/2025 Lalo Mcgarry Jr Assessments Encounter Date Diagnosis [...] 08/01/2024 Next Appt Details Provider Name:Lalo mustafa , 10/16/2025 11:10:00 AM, [address] [place] [address], [address], [place], [phone], Insurance Providers Payer Name Payer Address Payer Phone Subscriber Number Group Number Insured Name Patient Relationship to Insured Coverage Start Date Coverage End Date MEDICARE OF [place] [address] [place] [id number] CHIP PRAJAPATI Self - patient is the insured MEDICAID OF [facility] [address] [place] [address] [id number] CHIP PRAJAPATI Self - patient is the insured Medical (General) History Medical History History ICD Code hypertension opioid dependence migraines allergies back pain CVA Bipolar disorder Colonoscopy 01/26/19, small tubular adeno or, five-year followup peripheral vascular disease Gastroesophageal reflux dise ase, EGD 12/30, focal intestinal metaplasia at GE junction, repeat EGD 3-5 years Hypertension Abdominal aortic aneurysm Surgical History Surgery Date(Month/Year) appendectomy breast augmentation varicose vein stripping planter warts removed Intrathecal pain pump 10/27/2017 Cholecystectomy 2017 Left external iliac stent 11/16/2023
--- OUTSIDE RECORDS SUMMARY | 2025-07-12 12:56 | XMS_ITS | Encounter Summary ---
Author Organization [facility] Address [address] [facility] [address] [place] [address] Phone Care Team Providers Care Roller Mechanic Name Role Phone Max Andrews MD Primary Care Provider + Encounter Details Date Type Department Care Team (Late st Contact Info) Description 09/05/2024 Procedure Pass [facility] [address] [place] [address] Social History Tobacco Use Types Packs/Day Years Used Date Smoking Tobacco: Never Assessed Education Answer Date Recorded Are you interested in more education? Not on jesus e 02/04/2023 Are you concerned about learning? Not on file 02/04/2023 No 02/04/2023 No 02/04/2023 Digital Access Answer Date Recorded No 03/02/2023 No 03/02/2023 Reliable internet access at home? Not on file 03/02/2023 Device with a working camera? Not on file Intimate Partner Violence Answer Date R ecorded Are you denied basic needs s uch as food, clothing, or medical care? No 08/31/2024 In the past 12 months have y ou been in a relationship with a person who hurts, threatens, or tries to control you? No 08/31/2024 Are you denied basic needs s uch as food, clothing, or medical care? No 08/31/2024 In the past 12 months have y ou been in a relationship with a person who hurts, threatens, or tries to control you? No 08/31/2024 Comments No Sex and Gender Information Value Date Recorded Sex Assigned at Not on file Legal Sex Female 9:43 PM EDT Gender Identity Not on file Sexual Orientation Not on file documented as of this encounter Plan of Treatment Upcoming Encounters Date Type Department Care Team (Latest Contact Info) Description 10/15/2025 Procedure Pass [facility] [address] [place] [address] 10/15/2025 1:00 PM EST Hospital Encounter [facility] [address] [place] [address] Guillermo Malave MD [address] [place] [address] [email or web address] 10/15/2025 1:00 PM EST - 10/15/2025 1:51 PM EST Surgery [facility] [address] [place] [address] Guillermo Malave MD [address] [place] [address] [email or web address] Reprogram and Refill Pain Pump documented as of this encounter Visit Diagnoses Not on filedocumented in this encounter Care Teams Roller Mechanic Relationship Specialty Start Date End Date Max Andrews MD [address] [place] [address] PCP - General Family Medicine 07/21/23 documented as of this encounter Additional Source Comments The information contained in this document represents components of the legal health record. It is not the complete legal health record.[facility]
--- OUTSIDE RECORDS SUMMARY | 2025-07-12 12:56 | XMS_ITS | Encounter Summary ---
Author Organization [facility] Address [address] [place] [address] [place] [phone] Phone Care Team Providers Care Client Support Coordinator Name Role Phone Max Andrews MD Primary Care Provider + Encounter Details Date Type Department Care Team (Late st Contact Info) Description 04/26/2024 Procedure Pass [facility] [address] [place] [address] Social History Tobacco Use Types Packs/Day Years [...] with a working camera? Not on file Comments No Sex and Gender Information Value Date Recorded Sex Assigned at Not on file Legal Sex Female 9:43 PM EDT Gender Identity Not on file Sexual Orientation Not on file documented as of this encounter Plan of Treatment Upcoming Encounters Date Type Department Care Team (Latest Contact Info) Description 10/15/2025 Procedure Pass [facility] [address] [place] [address] 10/15/2025 1:00 PM EST Hospital Encounter [facility] [address] [place] [address] Guillermo Malave MD [address] [place] [address] [email or web address] 10/15/2025 1:00 PM EST - 10/15/2025 1:51 PM EST Surgery [facility] [address] [place] [address] Guillermo Malave MD [address] [place] [address] [email or web address] Reprogram and Refill Pain Pump documented as of this encounter Visit Diagnoses Not on filedocumented in this encounter Care Teams Client Support Coordinator Relationship Specialty Start Date End Date Max Andrews MD [address] [place] [address] [phone] PCP - General Family Medicine 07/21/23 documented as of this encounter Additional Source Comments The information contained in this document represents components of the legal health record. It is not the complete legal health record.[facility]
--- OUTSIDE RECORDS SUMMARY | 2025-07-12 12:56 | XMS_ITS | Patient Health Record ---
[facility] Address [address] [place] [address] Care Team Providers Care Car Hiker Name Role Phone Max Andrews MD Primary Care Provider Lisa ratliff Tara Powell Unavailable [phone] Reason For Referral No Information Medications Medication SIG (Take, Route, Frequency, Duration) Notes Start Date End Date Status Fluticasone Propionate 50 MCG/ACT Nasal; Duration: 30 Active diazePAM 5 MG Oral; Duration: 30 Active Gabapentin 300 MG Oral; Duration: 30 Active FLUoxetine HCl 20 MG Oral; Duration: 30 Active Spironolactone 25 MG Oral; Duration: 30 Active Labetalol HCl 200 MG Oral; Duration: 30 Active Amoxicillin 500 MG Oral; Duration: 7 Not-Taking Naproxen 500 MG Oral; Duration: 14 Active Omeprazole 20 MG Oral; Duration: 30 Not-Taking Social History Tobacco Use: Social History Observation Description Date Details (start date - stop date) Current Smoker NA - NA Tobacco Use/Smoking Question Answer Notes Are you a: current smoker How many cigarettes a day do you smoke? Alcohol Screen Question Answer Notes Did you have a drink containing alcohol in the p ast year? No Points 0 Interpretation Negative Tobacco use other than smoking: Question Answer Notes Are you an other tobacco user? No Problems Problem Type SNOMED Code ICD Code Onset Dates Problem Status W/U Status Risk Notes Problem Acquired hammer toe of right foot (7604857128316 105) Other hammer toe(s) (acquired), right foot (M20.41) Active confirmed Problem Acquired hammer toe of left foot (4139076268844 103) Other hammer toe(s) (acquired), left foot (M20.42) Active confirmed Problem Smoker (41727218) Smoker (F17.200) Active confirmed Plan Of Treatment Pending Test Test Name Order Date [id number] NAIL, 1-5 07/19/2019 21597- Debride <25 sq cm 07/19/2019 37122 I&D ABSCESS- SIMPLE,SINGLE 019 Insurance Providers Payer Name Payer Address Payer Phone Subscriber Number Group Number Insured Name Patient Relationship to Insured Coverage Start Date Coverage End Date Medicare National [employer] [address] [facility] [place] [address] [id number] Anastasiia Chavez Self - patient is the insured Medical (General) History Medical History History ICD Code Anxiety asthma Back,Hip,and Knee pain Depression Fibromyalgia Gall bladder problems Headaches/Migraines High blood pressure Numbness Sinus conditions Stroke Chicken pox Surgical History Surgery Date(Month/Year) Vericose veins stripped 1993 Pain pump 10/27/17 Gall bladder removal 01/24 tooth extraction
--- OUTSIDE RECORDS SUMMARY | 2025-07-12 12:56 | XMS_ITS | Clinical Summary ---
Author Organization [facility] Address [address] [place] [address] Care Team Providers Care Ballistic Expert Name Role Phone Max Andrews MD Primary Care Provider [phone] Allergies Active Allergy Reactions Criticality Noted Date [...] tablet, 5 Refills, Maintenance, 08/10/23 11:06:00 EDT, [facility], TAKE 1 TABLET BY MOUTH EVERY [...] 85 01/23/2024 11:22 AM EDT Temperature 35.9 C (96.7 F) 01/23/2024 11:22 AM EDT Respiratory Rate - - Oxygen Saturation 94% [...] Tdap) 11/30/2023 11/30/2013 COVID-19 Vaccine ( season) 2025 07/15/2023, 01/22/2022, 07/20/2021, Additional history exists Influenza Vaccine (#1) 2025 3, 06/29/2022, 07/21/2020, Additional history exists RSV Adult > 60+ Yrs or (1 - 1-dose 75+ series) 2038 Hepatitis B Vaccines Aged Out No long er eligible based on patient's age to complete this topic RSV Ped < 20 months Aged Out No longe r eligible based on patient's age to complete this topic Care Teams Ballistic Expert Relationship Specialty Start Date End Date Max Andrews MD [facility] [address] [place] [address] PCP - General Family Medicine 08/23/23
--- OUTSIDE RECORDS SUMMARY | 2025-07-12 12:56 | XMS_ITS | Encounter Summary ---
Author Organization [facility] Address [address] [facility] [address] [place] [phone] Phone Care Team Providers Care Pipe Stem Sawyer Name Role Phone Max Andrews MD Primary Care Provider + Encounter Details Date Type Department Care Team (Late st Contact Info) Description 08/31/2024 Procedure Pass [facility] [address] [place] [address] Social History Tobacco Use Types Packs/Day Years [...] Procedure Pass [facility] [address] [place] [address] 10/15/2025 1:00 PM EST Hospital Encounter [facility] [address] [place] [address] Guillermo Malave MD [address] [place] [address] [email or web address] 10/15/2025 1:00 PM EST - 10/15/2025 1:51 PM EST Surgery [facility] [address] [place] [address] Guillermo Malave MD [address] [place] [address] [email or web address] Reprogram and Refill Pain Pump documented as of this encounter Visit Diagnoses Not on filedocumented in this encounter Care Teams Pipe Stem Sawyer Relationship Specialty Start Date End Date Max Andrews MD [address] [place] [address] PCP - General Family Medicine 07/21/23 documented as of this encounter Additional Source Comments The information contained in this document represents components of the legal health record. It is not the complete legal health record.[facility]
--- OUTSIDE RECORDS SUMMARY | 2025-07-12 12:56 | XMS_ITS | Encounter Summary ---
Author Organization [facility] Address [address] [facility] [address] [place] [address] Phone Care Team Providers Care Youth Liaison Officer Name Role Phone Max Andrews MD Primary Care Provider + Encounter Details Date Type Department Care Team (Latest Contact Info) Description 11/08/2024 Transcribe Orders Virtual Department [address] [place] [address] Israel Dunn MD [address] [address] Other diseases of mediastinum, not elsewhere classified (Primary Dx) Social History Tobacco Use Types Packs/Day Years [...] Pass [facility] [address] [place] [address] 10/15/2025 1:00 PM EST Hospital Encounter [facility] [address] [place] [address] Giullermo Malave MD [address] [place] [address] [email or web address] 10/15/2025 1:00 PM EST - 10/15/2025 1:51 PM EST Surgery [facility] [address] [place] [address] Guillermo Malave MD [address] [place] [address] [email or web address] Reprogram and Refill Pain Pump documented as of this encounter Visit Diagnoses Diagnosis Other diseases of mediastinum, not elsewhere classified- Primary documented in this encounter Care Teams Youth Liaison Officer Relationship Specialty Start Date End Date Max Andrews MD [address] [place] [address] PCP - General Family Medicine 07/21/23 documented as of this encounter Additional Source Comments The information contained in this document represents components of the legal health record. It is not the complete legal health record.[facility]
--- OUTSIDE RECORDS SUMMARY | 2025-07-12 12:56 | XMS_ITS | Encounter Summary ---
Author Organization [facility] Address [address] [place] [phone] Phone Care Team Providers Care Exec. Creative Director Name Role Phone Unknown, Unknown Primary Care Provider Max Patel MD Primary Care Provider + Reason for Referral * MRI/CAT Scan - Closed Specialty Diagnoses / Procedures Referred By Contac t Referred To Contact Radiology Diagnoses History of stroke Neck pain Weakness of right upper extremity Procedures MRI Cervical Spine Dagmar Dyson NP Referral ID Status Reason Start Date Expiration Date Visits Re quested Visits Authorized [id number] Closed 01/03/2023 1 1 Encounter Details Date Type Department Care Team (Latest Contact Info) Description 01/03/2023 Transcribe Orders Virtual Department [address] [place] [phone] Dagmar Dyson NP History of stroke (Primary Dx); Neck pain; Weakness of right upper extremity Social History Tobacco Use Types Packs/Day Years [...] [facility] [address] [place] [address] 10/15/2025 1:00 PM EST Hospital Encounter [facility] [address] [place] [address] Guillermo Malave MD [address] [place] [address] [email or web address] 10/15/2025 1:00 PM EST - 10/15/2025 1:51 PM EST Surgery [facility] [address] [place] [address] Guillermo Malave MD [address] [place] [address] [email or web address] Reprogram and Refill Pain Pump documented as of this encounter Results * MRI CERVICAL SPINE (NEURO) FOCUS WITHOUT CONTRAST (01/31/2023 2:25 PM EDT) Anatomical Region Laterality Modality C-spine Magnetic Resonan ce 02/01/2023 4:18 PM EDT Impressions 02/01/2023 4:27 PM EDT Degenerative changes affecting disc spaces and facet joints, fully described above, greatest effect upon left-sided neural foramen C3-4 and C4-5 levels and neural foramen bilaterally, right greater than left C5-6 level. Narrative 02/01/2023 4:27 PM EDT MRI CERVICAL SPINE (NEURO) FOCUS WITHOUT CONTRAST History: Neck pain. Right sided weakness. Falls 2020. History of stroke. TECHNIQUE: MRI CERVICAL SPINE (NEURO) FOCUS WITHOUT CONTRAST Multi-sequence, multi-planar MRI of the cervical spine was performed without intravenous contrast. COMPARISON: No comparison cervical spine imaging available. FINDINGS: CERVICAL SPINE: Alignment and Vertebrae: Straightening of cervical lordosis with mild reversal of curve mid neck. Normal vertebral body heights. Marrow: No bone marrow replacing lesion. Discs and Endplates: Small disc herniations deform the thecal sac C3-4 and C4-5 levels. More broad-based posterior disc herniation evident C5-6 level without secondary central stenosis. Posterior lateral bony hypertrophy at this level. Small left central disc herniation C6-7 without central stenosis. No endplate signal change. Spinal Cord: No spinal cord compression or signal abnormality. Soft Tissue: Normal. No prevertebral edema. Findings by level: C2-C3: Small central disc herniation and mild right facet arthropathy. No central or left foraminal stenosis. Mild right foraminal stenosis. C3-C4: Small central disc herniation and moderate severity left-sided facet arthropathy. No central or right foraminal stenosis. At least moderate left foraminal stenosis. C4-C5: Small central stenosis without central or right foraminal stenosis. Extensive left-sided facet arthropathy with at least moderate left C5 nerve root foraminal stenosis. C5-C6: Moderate size posterior disc herniation deforming thecal sac and mildly contacting the cord, without cord compression. Extension of disc plus minus bony hypertrophy moderately narrow right C6 and mild to moderately narrow left C6 nerve root neural foramen. C6-C7: Minimal left paramedian disc herniation. No central or foraminal stenosis. C7-T1: Normal. No spinal or foraminal stenosis. Procedure Note Guillermo Malave MD - 02/01/2023 MRI CERVICAL SPINE (NEURO) FOCUS WITHOUT CONTRAST History: Neck pain. Right sided weakness. Falls 2020. History of stroke. TECHNIQUE: MRI CERVICAL SPINE (NEURO) FOCUS WITHOUT CONTRAST Multi-sequence, multi-planar MRI of the cervical spine was performedwithout intravenous contrast. COMPARISON: No comparison cervical spine imaging available. FINDINGS: CERVICAL SPINE: Alignment and Vertebrae: Straightening of cervical lordosis with mildreversal of curve mid neck. Normal vertebral body heights. Marrow: No bone marrow replacing lesion. Discs and Endplates: Small disc herniations deform the thecal sac C3-4 andC4-5 levels. More broad-based posterior disc herniation evident C5-6 levelwithout secondary central stenosis. Posterior lateral bony hypertrophy atthis level. Small left central disc herniation C6-7 without centralstenosis. No endplate signal change. Spinal Cord: No spinal cord compression or signal abnormality. Soft Tissue: Normal. No prevertebral edema. Findings by level: C2-C3: Small central disc herniation and mild right facet arthropathy. Nocentral or left foraminal stenosis. Mild right foraminal stenosis. C3-C4: Small central disc herniation and moderate severity left-sidedfacet arthropathy. No central or right foraminal stenosis. At leastmoderate left foraminal stenosis. C4-C5: Small central stenosis without central or right foraminal stenosis.Extensive left-sided facet arthropathy with at least moderate left [id number] root foraminal stenosis. C5-C6: Moderate size posterior disc herniation deforming thecal sac andmildly contacting the cord, without cord compression. Extension of discplus minus bony hypertrophy moderately narrow right C6 and mild tomoderately narrow left C6 nerve root neural foramen. C6-C7: Minimal left paramedian disc herniation. No central or foraminalstenosis. C7-T1: Normal. No spinal or foraminal stenosis. IMPRESSION: Degenerative changes affecting disc spaces and facet joints, fullydescribed above, greatest effect upon left-sided neural foramen C3-4 andC4-5 levels and neural foramen bilaterally, right greater than left C5-6level. Dagmar Dyson CEMENT [employer] HELPER IMG MR XSPECIALTY Fi nal Result documented in this encounter Visit Diagnoses Diagnosis History of stroke- Primary Transient ischemic attack (TIA), and cerebral infarction without residual deficits Neck pain Cervicalgia Weakness of right upper extremity Other musculoskeletal symptoms referable to limbs History of stroke Transient ischemic attack (TIA), and cerebral infarction without residual deficits Neck pain Cervicalgia Weakness of right upper extremity Other musculoskeletal symptoms referable to limbs documented in this encounter Care Teams Exec. Creative Director Relationship Specialty Start Date End Date Unknown, Unknown, PCP - General 01/05/23 07/20/23 Max Andrews MD [address] [place] [phone] PCP - General Family Medicine 07/21/23 documented as of this encounter Additional Source Comments The information contained in this document represents components of the legal health record. It is not the complete legal health record.[facility]
--- OUTSIDE RECORDS SUMMARY | 2025-07-12 12:56 | XMS_ITS | Encounter Summary ---
Author Organization [facility] Address [address] [place] [phone] Phone Care Team Providers Care Insurance Premium Auditor Name Role Phone Max Andrews MD Primary Care Provider + Encounter Details Date Type Department Care Team (Late st Contact Info) Description 04/09/2025 Procedure Pass [facility] [address] [place] [address] Social History Tobacco Use Types Packs/Day Years [...] as food, clothing, or medical care? No 04/09/2025 In the past 12 months have y ou been in a relationship with a person who hurts, threatens, or tries to control you? No 04/09/2025 Are you denied basic needs s uch as food, clothing, or medical care? No 04/09/2025 In the past 12 months have y ou been in a relationship with a person who hurts, threatens, or tries to control you? No 04/09/2025 Comments No Sex and Gender Information Value Date Recorded Sex Assigned at Not on file Legal Sex Female 9:43 PM EDT Gender Identity Not on file Sexual Orientation Not on file documented as of this encounter Plan of Treatment Upcoming Encounters Date Type Department Care Team (Latest Contact Info) Description 10/15/2025 Procedure Pass [facility] [address] [place] [address] 10/15/2025 1:00 PM EST Hospital Encounter [facility] [address] [place] [address] Guillermo Malave MD [address] [place] [phone] [email or web address] 10/15/2025 1:00 PM EST - 10/15/2025 1:51 PM EST Surgery [facility] [address] [place] [address] Guillermo Malave MD [address] [place] [address] [email or web address] Reprogram and Refill Pain Pump documented as of this encounter Visit Diagnoses Not on filedocumented in this encounter Care Teams Insurance Premium Auditor Relationship Specialty Start Date End Date Max Andrews MD [address] [place] [phone] PCP - General Family Medicine 07/21/23 documented as of this encounter Additional Source Comments The information contained in this document represents components of the legal health record. It is not the complete legal health record.[facility]
--- OUTSIDE RECORDS SUMMARY | 2025-07-12 12:56 | XMS_ITS | Encounter Summary ---
Author Organization [facility] Address [address] [place] [address] [place] [phone] Phone Care Team Providers Care Meat Soaker Name Role Phone Max Andrews MD Primary Care Provider + Encounter Details Date Type Department Care Team (Late st Contact Info) Description 12/22/2023 Procedure Pass [facility] [address] [place] [phone] Social History Tobacco Use Types Packs/Day Years [...] Procedure Pass [facility] [address] [place] [phone] 10/15/2025 1:00 PM EST Hospital Encounter [facility] [address] [place] [address] Guillermo Malave MD [address] [place] [address] [email or web address] 10/15/2025 1:00 PM EST - 10/15/2025 1:51 PM EST Surgery [facility] [address] [place] [address] Guillermo Malave MD [address] [place] [address] [email or web address] Reprogram and Refill Pain Pump documented as of this encounter Visit Diagnoses Not on filedocumented in this encounter Care Teams Meat Soaker Relationship Specialty Start Date End Date Max Andrews MD [address] [place] [phone] PCP - General Family Medicine 07/21/23 documented as of this encounter Additional Source Comments The information contained in this document represents components of the legal health record. It is not the complete legal health record.[facility]
--- OUTSIDE RECORDS SUMMARY | 2025-07-12 12:56 | XMS_ITS | Clinical Summary ---
Author Organization [facility] Address [address] [place] [phone] Phone Care Team Providers Care Frog Shaker Name Role Phone Max Andrews MD Primary Care Provider + Allergies Active Allergy Reactions Criticality Noted Date Comments Amlodipine 08/31/2024 Gabapentin 08/31/2024 Oxycodone 08/31/2024 Paroxetine 08/31/2024 Medications aspirin 81 MG EC tablet Take 81 mg by mouth daily. Active labetaloL (TRANDATE) 200 MG tablet Take 200 mg by mouth 2 (two) times a day. Active loratadine (CLARITIN) 10 mg tablet Take 10 mg by mouth daily. Active atorvastatin (LIPITOR) 80 MG tablet Take 40 mg by mouth daily. Active FLUoxetine (PROZAC) 20 MG capsule Take 20 mg by mouth daily. Active spironolactone (ALDACTONE) 25 MG tablet Take 25 mg by mouth daily. Active clopidogrel (PLAVIX) 75 mg tablet Take 75 mg by mouth daily. Active Encounters Date Type Department Care Team Description 04/25/2025 Orders Only [facility] Rad [address] [place] [address] Guillermo Malave MD Malnutrition compromising bodily function (Primary Dx) from Last 3 Months Social History Tobacco Use Types Packs/Day Years [...] Sign Reading Time Taken Comments Blood Pressure 155/95 04/09/2025 1:00 PM EDT Pulse 86 04/09/2025 1:00 PM EDT Temperature 36.1 C (97 F) 12/22/2023 1:10 PM EDT Respiratory Rate 16 12/22/2023 1:10 PM EDT Oxygen Saturation 97% 04/09/2025 1:00 PM EDT Inhaled Oxygen Concentration - - Weight 53.1 kg (117 lb) 11/19/2024 3:21 PM EST Height 167.6 cm (5' 6 ) 11/19/2024 3:21 PM EST Body Mass Index 18.88 11/19/2024 3:21 PM EST Plan of Treatment Upcoming Encounters Date Type Department Care Team (Latest Contact Info) Description 10/15/2025 Procedure Pass [facility] [address] [place] [address] 10/15/2025 1:00 PM EST Hospital Encounter [facility] [address] [place] [address] Guillermo Malave MD [address] [place] [address] [email or web address] 10/15/2025 1:00 PM EST - 10/15/2025 1:51 PM EST Surgery [facility] [address] [place] [address] Guillermo Malave MD [address] [place] [address] [email or web address] Reprogram and Refill Pain Pump Health Maintenance Due Date Last Done Comments LIPID PANEL 1963 POTASSIUM LEVEL 1963 DEPRESSION SCREENING 1975 SMOKING Hx and SMOKELESS TOBACCO SCREENING 1976 HEPATITIS C SCREENING 1981 HIV ONE-TIME SCREENING (18-6 5 YEARS) 1981 PAP SMEAR 1984 MAMMOGRAM 2003 COLOGUARD 2008 COLONOSCOPY 2008 COLORECTAL CANCER SCREENING 2008 FIT TEST 2008 FOBT 2008 SIGMOIDOSCOPY 2008 VIRTUAL COLONOSCOPY 2008 ZOSTER VACCINES (1 of 2) 2013 PNEUMOCOCCAL VACCINES (50+ years) (2 of 2 - PCV) 11/30/2014 11/30/2013 Adult Td,Tdap Booster 11/30/2023 11/30/2013 INFLUENZA VACCINE (#1) 2025 4, 08/23/2013 COVID-19 VACCINE (1 - 2024-2 6 season) 2025 RSV VACCINE (1 - 1-dose 75+ series) 2038 HEPATITIS A VACCINES Aged Out No long er eligible based on patient's age to complete this topic HIB VACCINES Aged Out No longer eligi ble based on patient's age to complete this topic MENINGOCOCCAL VACCINES (ACWY) Aged Out No longer eligible based on patient's age to complete this topic MENINGOCOCCAL VACCINES (B) Aged Out N o longer eligible based on patient's age to complete this topic Medical Devices Implanted Type Area Screw Driver Operator Device Identifier Shelf Expiration Date Model / Serial / Lot Pump-10/27/2017 Implanted:2017 by Mikayla Marin MD (Quantity not on file) Pump [id number] / [id number] / [place] [facility] B Care Teams Frog Shaker Relationship Specialty Start Date End Date Max Andrews MD [address] [place] [phone] PCP - General Family Medicine 07/21/23 Additional Source Comments The information contained in this document represents components of the legal health record. It is not the complete legal health record.[facility]
--- OUTSIDE RECORDS SUMMARY | 2025-07-12 12:57 | XMS_ITS | Encounter Summary ---
Author Organization [facility] Address [address] [place] [address] [place] [phone] Phone Care Team Providers Care Residential Building Inspector Name Role Phone Max Andrews MD Primary Care Provider + Encounter Details Date Type Department Care Team (Late st Contact Info) Description 08/03/2023 Procedure Pass [facility] [address] [place] [phone] Social History Tobacco Use Types Packs/Day Years [...] a working camera? Not on file Comments Unknown Sex and Gender Information Value Date Recorded Sex Assigned at Not on file Legal Sex Female 9:43 PM EDT Gender Identity Not on file Sexual Orientation Not on file documented as of this encounter Plan of Treatment Upcoming Encounters Date Type Department Care Team (Latest Contact Info) Description 10/15/2025 Procedure Pass [facility] [address] [place] [phone] 10/15/2025 1:00 PM EST Hospital Encounter [facility] [address] [place] [address] Guillermo Malave MD [address] [place] [address] [email or web address] 10/15/2025 1:00 PM EST - 10/15/2025 1:51 PM EST Surgery [facility] [address] [place] [address] Guillermo Malave MD [address] [place] [address] [email or web address] Reprogram and Refill Pain Pump documented as of this encounter Visit Diagnoses Not on filedocumented in this encounter Care Teams Residential Building Inspector Relationship Specialty Start Date End Date Max Andrews MD [address] [place] [address] [phone] PCP - General Family Medicine 07/21/23 documented as of this encounter Additional Source Comments The information contained in this document represents components of the legal health record. It is not the complete legal health record.[facility]
--- OUTSIDE RECORDS SUMMARY | 2025-07-12 12:57 | XMS_ITS | Encounter Summary ---
Author Organization [facility] Address [address] [place] [address] [place] [phone] Phone Care Team Providers Care Insurance Examining Clerk Name Role Phone Unknown, Unknown Primary Care Provider Max Patel MD Primary Care Provider + Encounter Details Date Type Department Care Team (Late st Contact Info) Description 03/10/2023 Procedure Pass [facility] [address] [place] [phone] Social History Tobacco Use Types Packs/Day Years [...] Pass [facility] [address] [place] [phone] 10/15/2025 1:00 PM [facility] Hospital Encounter [facility] [address] [place] [address] Guillermo Malave MD [address] [place] [address] [email or web address] 10/15/2025 1:00 PM EST - 10/15/2025 1:51 PM EST Surgery [facility] [address] [place] [address] Guillermo Malave MD [address] [place] [address] [email or web address] Reprogram and Refill Pain Pump documented as of this encounter Visit Diagnoses Not on filedocumented in this encounter Care Teams Insurance Examining Clerk Relationship Specialty Start Date End Date Unknown, Unknown, MD PCP - General 01/05/23 07/20/23 Max Andrews MD [address] [place] [phone] PCP - General Family Medicine 07/21/23 documented as of this encounter Additional Source Comments The information contained in this document represents components of the legal health record. It is not the complete legal health record.[facility]
[2025-07-12 14:22] LABS: Anion Gap 10 (12-20); Blood Urea Nitrogen 14 mg/dL (9-16); Calcium 9.4 mg/dL (8.4-10.2); Carbon Dioxide 29 mmol/L (22-29); Chloride 102 mmol/L (96-108); Estimated Glomerular Filt Rate > 60; Potassium 3.9 mmol/L (3.3-5.1); Sodium 137 mmol/L (135-145)
== END 2025-07-12 12:01 | disposition home or self-care (01) ==
LOC: HO.HMGCLDS 12:00
PROVIDERS: PCP Family Medicine; Visit Provider Internal Medicine Nephrology
DX: I10 Essential (primary) hypertension (principal)
CPT/HCPCS: 36415; 80051; 82310; 82565; 84520

== ENCOUNTER 2025-09-27 13:44 | Outpatient (AMB) | payer MEDICARE, MEDICAID, SELFPAY ==
--- OUTSIDE RECORDS SUMMARY | 2023-11-07 06:30 | XMS_ITS | Continuity of Care Document ---
Author Organization [facility] Address [address] [place] [address] [address] [place] [id number] Phone Care Team Providers Care Pharm Tech Name Role Phone Clinton Bundy MD, FACS, RVT Unavailable Unavailable Advance Directives Directive Yes / No Effective Date File Name No Information Encounters Encounter Description Practice Location Reason(s) For Visit Diagnoses Date Provider Encounter Disposition [facility], [address] [place] [address] [address], [place], [id number], tel:[phone] No Information Arsenio Melendez. [address] [address], [place], [address], [place]. tel:[phone] Family History Family Member Type Diagnosis Age At Onset No Information Payers Payer name Insurance type Identifiers Authorization(s) Com ments No Information Social History Type Description Quantity Date Captured Comments Sex Female Smoking Status No Information Current Gender Female (finding) Chief Complaint And Reason For Visit No Information History Of Present Illness Encounter Date Complaint History Of Prese nt Illness No Information Functional Status Date Description Comments No Information Instructions Date Instruction Additional Infor mation No Information Assessments Type Assessment Date No Information
--- OUTSIDE RECORDS SUMMARY | 2025-02-12 02:30 | XMS_ITS ---
Author Organization [facility] Address [address] [place] [address] Care Team Providers Care Four Corner Former Machine Operator Name Role Phone Max Andrews Primary Care Provider Lalo Irizarry Jr REASON FOR VISIT screening Encounters Encounter Location Date Provider Diagnosis [facility] Outpatient [address] [place] [phone] 02/12/2025 Lalo Mcgarry Jr Plan Of Treatment Next Appt Details Provider Name:Lalo mustafa Jr, 12/17/2025 07:30:00 AM, [address] [place] [address], [phone], Progress Notes * EDGAR PRAJAPATIOB:1965 ( 59 yo F)Acc No.[id number]:02/12/2025 COLON WITH MAC Patient: CHIP SAMS Provider: Dax Mcgarry MD :1965 A ge:59 Y S ex:Female Date:02/12/2025 Address:[id number] Pcp:Max Andrews Subjective: * Chief Complaints: * S creening * The named appointment provid er may or may not be the originator of this progress note, and it is not deemed complete until electronically signed by the appointment provider. Sign off status: Pending * Provider: Dax Mcgarry MD Date: 0 02/12/2025 Generated for Maurizio antony/Yuliana/eTransmitting on: 11/28/2024 03:25 PM EST
--- OUTSIDE RECORDS SUMMARY | 2025-09-21 23:59 | XMS_ITS | Continuity of Care Document ---
Author Organization [facility] Prabhakar lt Address [address] [place] [address]- Care Team Providers Care Manager Linux Name Role Phone Juliana CAMPOS, Max Guido Primary Care Physician Encounter [facility] Date(s): 08/22/25 - 09/21/25 [facility] Adult [address] [place] [address]- Encounter Diagnosis PVD (peripheral vascular disease)(Discharge Diagnosis) - 11/06/23 Attending Physician: Adin Mckeon Encounter Type: Triage Allergies, Adverse Reactions, Alerts No Known Allergies Immunizations Given and Recorded Vaccine Date Status Refusal Reason SARS-CoV-2(COVID-19)mRNA-LNP vac([id number]) 07/26/25 Recorded SARS-CoV-2(COVID-19)mRNA-LNP vac([id number]) 06/14/24 Recorded SARS-CoV-2(COVID-19)mRNA-LNP vac([id number]) 07/15/23 Recorded influenza virus vaccine, inactivated 1 07/18/25 Gi jose rafael influenza virus vaccine, inactivated 06/14/24 Catracho rded influenza virus vaccine, inactivated 07/15/23 Catracho rded influenza virus vaccine, inactivated 06/29/22 Catracho rded influenza virus vaccine, inactivated 07/21/20 Give n influenza virus vaccine, inactivated 2 08/10/17 Re corded influenza virus vaccine, inactivated 08/11/15 Give n zoster vaccine, inactivated 03/19/25 Recorded zoster vaccine, inactivated 01/17/25 Recorded tetanus/diphtheria/pertussis, acel(Tdap) 02/05/25 Recorded tetanus/diphtheria/pertussis, acel(Tdap) 11/30/13 Recorded pneumococcal 20-valent conjugate vaccine 01/17/25 Recorded RSV vaccine, preF A-preF B, recombinant 06/14/24 R ecorded [id number] 12y+ bivalent booster vax 06/29/22 Recorded SARS-CoV-2 mRNA ([id number]) vax 01/22/22 Recorded SARS-CoV-2 (COVID-19) mRNA BNT-162b2 vac 07/20/21 Recorded SARS-CoV-2 (COVID-19) mRNA BNT-162b2 vac 01/07/21 Recorded SARS-CoV-2 (COVID-19) mRNA BNT-162b2 vac 12/17/20 Recorded Pneumococcal Vacc (oldterm) 08/11/15 Given Pneumococcal Vaccine (oldterm) 11/14/06 Given Influenza Inactive (IM) (oldterm) 11/14/06 Given 1Result Comment: [facility]:[id number] Screening checklist reviewed with patient, negative for any contraindications. 2Location History: [facility] Medications acetaminophen/butalbital/caffeine 325 mg-50 mg-40 mg oral tablet See Instructions, TAKE 1 TABLET BY MOUTH EVERY 4 HOURS NEEDED FOR HEADACHE NOT TO EXCEED 6 TABLETS/DAY, # 20 tablet, 5 Refills, Maintenance, 07/25/25 5:08:00 AM EDT, [facility], TAKE 1 TABLETBY MOUTH EVERY 4 HOURS NEEDED FOR HEADACHE NOT TO EXCEED 6 TABLETS/DAY, 168, cm, 07/18/25 16:31:00 EDT, Height, 50, kg, 02/18/25 13:44:00 EDT, Dry Weight Start Date: 07/25/25 Status: Ordered Medication Dispense Status: Completed Quantity: 20.0 Unit: tablet Total Allowed Fills: 6 Fills Dispensed: 0 Albuterol (Eqv-ProAir HFA) 90 mcg/inh inhalation aerosol 2 inhalation = 180 mcg, Inhalation, Every 6 hours, PRN as needed for shortness of breath or wheezing, # 1 each, 6 Refills, Maintenance, 06/26/25 5:08:00 PM EDT, Aerosol, [facility], Partial fill upon patient request if the prescription is for a schedule II opioid drug., 2 inhalation Inhalation Every 6 hours,PRN:as needed for shortness of breath or wheezing, 168, cm, 06/19/25 13:40:00 EDT, [place], 50, kg, 02/18/25 13:44:00 EDT, Dry Weight Start Date: 06/26/25 Status: Ordered Medication Dispense Status: Completed Quantity: 1.0 Unit: each Total Allowed Fills: 7 Fills Dispensed: 0 Aspirin Low Dose 81 mg oral delayed release tablet 1 tablet, By Mouth, Daily, # 90 tablet, 6 Refills, Maintenance, 02/21/25 2:29:00 AM EDT, [facility], 168, cm, 02/18/25 13:44:00 EDT, Height, 50, kg, 02/18/25 13:44:00 EDT, Dry Weight Start Date: 02/21/25 Status: Ordered Medication Dispense Status: Completed Quantity: 90.0 Unit: tablet Total Allowed Fills: 1 Fills Dispensed: 0 atorvastatin 40 mg oral tablet See Instructions, TAKE 1 TABLET BY MOUTH DAILY, # 30 tablet, 5 Refills, Maintenance, 07/24/25 11:02:00 AM EDT, [facility], 168, cm, 07/18/25 16:31:00 EDT, Height, 50, kg, 02/18/25 13:44:00 EDT, Dry Weight Start Date: 07/24/25 Status: Ordered Medication Dispense Status: Completed Quantity: 30.0 Unit: tablet Total Allowed Fills: 6 Fills Dispensed: 0 clopidogrel 75 mg oral tablet 75 mg, 1, tablet, By Mouth, Daily, # 90 tablet, Refills 0, Tot. Refills 0, Maintenance, 08/15/25 4:46:00 PM EST, Route to Pharmacy Electronically, [facility], Partial fill upon patient request ifthe prescription is for a schedule II opioid drug., 167, cm, 08/15/25 16:27:00 EST, Height, 49.9, kg, 08/15/25 14:23:00 EST, Dry Weight Start Date: 08/15/25 Status: Ordered Medication Dispense Status: Completed Quantity: 90.0 Unit: tablet Total Allowed Fills: 1 Fills Dispensed: 0 docusate sodium 100 mg oral capsule 100 mg, 1, capsule, By Mouth, 2 times a day, PRN, # 60 capsule, Refills 5, Tot. Refills 5, Maintenance, as needed for constipation, 08/23/25 3:33:00 PM EST, Route to Pharmacy Electronically, [facility], Partial fill upon patient request if the prescription is for a schedule II opioid drug., 167, cm, 08/22/25 13:52:00 EST, Height, 49.9, kg, 08/15/25 14:23:00 EST, Dry Weight Start Date: 08/23/25 Status: Ordered Medication Dispense Status: Completed Quantity: 60.0 Unit: capsule Total Allowed Fills: 6 Fills Dispensed: 0 ergocalciferol 91860 iu oral capsule 50,000 International_Units, 1, capsule, By Mouth, Every week, # 12 capsule, Refills 3, Tot. Refills3, Maintenance, 08/23/25 3:37:00 PM EST, Route to Pharmacy Electronically, [facility], Partialfill upon patient request if the prescription is for a schedule II opioid drug., 167, cm, 08/22/25 13:52:00 EST, Height, 49.9, kg, 08/15/25 14:23:00 EST, Dry Weight Start Date: 08/23/25 Status: Ordered Medication Dispense Status: Completed Quantity: 12.0 Unit: capsule Total Allowed Fills: 4 Fills Dispensed: 0 FLUoxetine 10 mg oral capsule 60 each, 0 Refill(s), Refills 0, 09/18/25 11:58:00 AM EST, Partial fill upon patient request if theprescription is for a schedule II opioid drug. Start Date: 09/18/25 Status: Ordered Medication Dispense Status: Completed Total Allowed Fills: 1 Fills Dispensed: 0 labetalol 300 mg oral tablet 1 tablet = 300 mg, By Mouth, 2 times a day, 0 Refills, Maintenance, 01/07/25 2:16:00 PM EDT, Partialfill upon patient request if the prescription is for a schedule II opioid drug. Start Date: 01/07/25 Status: Ordered Medication Dispense Status: Completed Total Allowed Fills: 1 Fills Dispensed: 0 MiraLax oral powder for reconstitution = 17 Gm, By Mouth, Daily, PRN Constipation, dissolve in 4 to 8 oz of beverage, # 510 Gm, 1 Refills,Acute 01/21/26 3:34:00 PM EDT, 08/23/25 3:33:00 PM EST, REC Powder, [facility], Partial fill upon patient request if the prescription is for a schedule II opioid drug., 17 Gm By Mouth Daily,PRN:Co nstipation,Instr:dissolve in 4 to 8 oz of beverage, 167, cm, 08/22/25 13:52:00 EST, Height, 49.9, kg, 08/15/25 14:23:00 EST, Dry Weight Start Date: 08/23/25 Stop Date: 01/21/26 Status: Ordered Medication Dispense Status: Completed Quantity: 510.0 Unit: g Total Allowed Fills: 2 Fills Dispensed: 0 omeprazole 20 mg oral delayed release tablet 1 tablet = 20 mg, By Mouth, 2 times a day, # 30 tablet, 0 Refills, Maintenance, 08/06/25 9:16:00 AMEDT, EC Tablet, [facility], Partial fill upon patient request if the prescription is for a schedule II opioid drug., 168, cm, 08/06/25 8:37:00 EDT, Height, 50, kg, 02/18/25 13:44:00 EDT, Dry Weight Start Date: 08/06/25 Status: Ordered Medication Dispense Status: Completed Quantity: 30.0 Unit: tablet Total Allowed Fills: 1 Fills Dispensed: 0 pantoprazole 40 mg oral delayed release tablet 1 tablet = 40 mg, By Mouth, Daily, # 30 tablet, 5 Refills, Maintenance, 08/23/25 3:35:00 PM EST, [facility], 167, cm, 08/22/25 13:52:00 EST, Height, 49.9, kg, 08/15/25 14:23:00 EST, Dry Weight Start Date: 08/23/25 Status: Ordered Medication Dispense Status: Completed Quantity: 30.0 Unit: tablet Total Allowed Fills: 6 Fills Dispensed: 0 Readi-Cat 2 Smoothie Banana 2% oral suspension See Instructions, Drink 450 ml 90 minutes before procedure; drink 450 ml just prior to procedure, #900 mL, 0 Refills, Maintenance, 08/28/25 2:20:00 PM EST, [facility], Partial fillupon patient request if the prescription is for a schedule II opioid drug., Drink 450 ml 90 minutesbefore procedure; drink 450 ml just prior to procedure, 167, cm, 08/22/25 13:52:00 EST, Height, 49.9, kg, 08/15/25 14:23:00 EST, Dry Weight Start Date: 08/28/25 Status: Ordered Medication Dispense Status: Completed Quantity: 900.0 Unit: mL Total Allowed Fills: 1 Fills Dispensed: 0 spironolactone 25 mg oral tablet See Instructions, TAKE 1 TABLET BY MOUTH DAILY, # 30 tablet, Refills 5, Maintenance, 08/22/24 3:42:00 PM EST, Instructions Replace Required Details, Route to Pharmacy Electronically, [facility],168, cm, 05/29/24 13:49:00 EDT, Height, 53.6, kg, 04/02/24 19:25:00 EDT, Dry Weight Start Date: 08/22/24 Status: Ordered Medication Dispense Status: Completed Quantity: 30.0 Unit: tablet Total Allowed Fills: 1 Fills Dispensed: 0 Problem List Condition Confirmation Course Effective Dates Status H ealth Status Informant AAA (abdominal aortic aneurysm) Confirmed Active Back pain NOS Confirmed Active Bipolar disorder (manic depression) Confirmed Active CVA (cerebral vascular accident) Confirmed Active Hyperlipidemia Confirmed Active Hypertension Confirmed Active Migraine Confirmed Active Preoperative examination Confirmed Active Pericardial cyst Confirmed Active PVD (peripheral vascular disease) 1 Confirmed Active Radicular pain of right lower back Confirmed Active Spinal Arachnoid Cyst Confirmed Active Tobacco abuse Confirmed Active Underweight Confirmed Active 1Severe, referred to vascular surgeon Diagnosis Diagnosis Type Effective Dates Health Status inical Service Informant PVD (peripheral vascular disease) Discharge Diagnosis 11/06/23 Procedures Procedure Date Related Diagnosis Body Site Status Colonoscopy 1 01/26/[address] [place] [address] Dr. Mcgarry Impression 1. Gastritis 2. Duodenitis 3. Colon polyp report scanned in cis Social History Social History Type Response Smoking Status Former smoker, quit more than 30 days ago entered on: 08/22/25 Sex Sex Representation Female (finding) Hospital Consult note * Event Display: Inpatient Consult Note, Non- Authored Date: * Event Display: Inpatient Consult Note, Non- Authored Date: EKG study * Event Display: EKG Authored Date: Laboratory * Event Display: Laboratory Result Scanned Authored Date: * Event Display: Laboratory Result Scanned Authored Date: * Event Display: Laboratory Result Scanned Authored Date: Cardiology Consult note * Event Display: Consult Note Cardiology Authored Date: Imaging * Event Display: Ultrasound Abdomen, Non-BH Authored Date: * Event Display: Ultrasound Lower Extremity, Non-BH Authored Date: * Event Display: IR Special Procedures, Non-BH Authored Date: * Event Display: IR Special Procedures, Non-BH Authored Date: * Event Display: IR Special Procedures, Non-BH Authored Date: * Event Display: IR Special Procedures, Non-BH Authored Date: * Event Display: MRI Shoulder, Non- BH Authored Date: * Event Display: MRI Shoulder, Non- BH Authored Date: * Event Display: MRI Head, Non- BH Authored Date: * Event Display: MRI Head, Non- BH Authored Date: * Event Display: MRI Spine, Non- BH Authored Date: Patient Care team information Care Team Personnel Name: Arcelia Berumen NP Position: [facility] PCO Associate Professional Member Role: Lifetime Consulting Provider Address: [address] [place] [address] - [place] Telecom: Name: Max Andrews MD Position: [facility] Physician - Primary Care Member Role: PCP Address: [address] [place] [address] - Telecom: Care Team Related Persons Name: GAVIN PRAJAPATI Name: MARY PRAJAPATI Name: JOHN LINO Name: JOHN LINO Insurance Providers Guarantor name: CHIP PRAJAPATI [employer] Plan Information #: 1 Payer: MEDICARE B Payer Identifier: NA Member Number: [id number] Group Number: NA Subscriber Identifier: NA Relationship to Subscriber: self Coverage Type: NA Coverage Verification Date: NA Telecom: NA Address: NA Health Plan Information #: 2 Payer: [facility] [employer] Payer Identifier: NA Member Number: [id number] Group Number: NA Subscriber Identifier: NA Relationship to Subscriber: self Coverage Type: MEDICAID Coverage Verification Date: NA Telecom: NA Address: NA
--- OUTSIDE RECORDS SUMMARY | 2025-09-21 23:59 | XMS_ITS | Continuity of Care Document ---
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 Role Phone Juliana CAMPOS, Max Guido Primary Care Physician [phone] Encounter [facility] Date(s): 08/22/25 - 09/21/25 [facility] Adult [address] [place] [address]- Encounter Type: Triage Allergies, Adverse Reactions, Alerts No Known Allergies Immunizations Given and Recorded Vaccine Date Status Refusal Reason SARS-CoV-2(COVID-19)mRNA-LNP vac([id number]) 07/26/25 Recorded SARS-CoV-2(COVID-19)mRNA-LNP vac([id number]) 06/14/24 Recorded SARS-CoV-2(COVID-19)mRNA-LNP vac([id number]) 07/15/23 Recorded influenza virus vaccine, inactivated 1 [...] preF A-preF B, recombinant 06/14/24 R ecorded [id number] 12y+ bivalent booster vax 06/29/22 Recorded SARS-CoV-2 mRNA ([id number]-[id number]) vax 01/22/22 Recorded SARS-CoV-2 (COVID-19) mRNA BNT-162b2 vac 07/20/21 Recorded SARS-CoV-2 (COVID-19) mRNA BNT-162b2 vac 01/07/21 Recorded SARS-CoV-2 (COVID-19) mRNA BNT-162b2 vac 12/17/20 Recorded Pneumococcal Vacc (oldterm) 08/11/15 Given Pneumococcal Vaccine (oldterm) 11/14/06 Given Influenza Inactive (IM) (oldterm) 11/14/06 Given 1Result Comment: [facility]:[id number] Screening checklist reviewed with patient, negative for any contraindications. 2Location History: [facility] Medications acetaminophen/butalbital/caffeine 325 mg-50 mg-40 mg oral tablet See Instructions, TAKE 1 TABLET BY MOUTH EVERY 4 HOURS NEEDED FOR HEADACHE NOT TO EXCEED 6 TABLETS/DAY, # 20 tablet, 5 Refills, Maintenance, 07/25/25 5:08:00 AM EDT, [facility], TAKE 1 TABLETBY MOUTH EVERY 4 [...] Refills, Maintenance, 06/26/25 5:08:00 PM EDT, Aerosol, [facility], Partial fill upon patient request [...] 6 Refills, Maintenance, 02/21/25 2:29:00 AM EDT, [facility], 168, cm, 02/18/25 13:44:00 EDT, Height, 50, kg, 02/18/25 13:44:00 EDT, Dry Weight Start Date: 02/21/25 Status: Ordered Medication Dispense Status: Completed Quantity: 90.0 Unit: tablet Total Allowed Fills: 1 Fills Dispensed: 0 atorvastatin 40 mg oral tablet See Instructions, TAKE 1 TABLET BY MOUTH DAILY, # 30 tablet, 5 Refills, Maintenance, 07/24/25 11:02:00 AM EDT, [facility], 168, cm, 07/18/25 16:31:00 EDT, Height, 50, kg, 02/18/25 13:44:00 EDT, Dry Weight Start Date: 07/24/25 Status: Ordered Medication Dispense Status: Completed Quantity: 30.0 Unit: tablet Total Allowed Fills: 6 Fills Dispensed: 0 clopidogrel 75 mg oral tablet 75 mg, 1, tablet, By Mouth, Daily, # 90 tablet, Refills 0, Tot. Refills 0, Maintenance, 08/15/25 4:46:00 PM EST, Route to Pharmacy Electronically, [facility], Partial fill upon patient request ifthe [...] Allowed Fills: 6 Fills Dispensed: 0 ergocalciferol 55200 iu oral capsule 50,000 International_Units, 1, capsule, [...] EDT, 08/23/25 3:33:00 PM EST, REC Powder, [facility], Partial fill upon patient request [...] Refills, Maintenance, 08/06/25 9:16:00 AMEDT, EC Tablet, [facility], Partial fill upon patient request [...] Replace Required Details, Route to Pharmacy Electronically, [facility],168, cm, 05/29/24 13:49:00 EDT, Height, 53.6, [...] Confirmed Active 1Severe, referred to vascular surgeon Social History Social History Type Response Smoking Status Former smoker, quit more than 30 days ago entered on: 08/22/25 Sex Sex Representation Female (finding) Patient Care team information Care Team Personnel Name: Ata JIN, Arcelia Cotton Position: [facility] PCO Associate Professional Member Role: Lifetime Consulting Provider Address: [address] [place] [address]- [place] Telecom: Name: Max Andrews MD Position: [facility] Physician - Primary Care Member Role: PCP Address: [address] [place] [id number] Telecom: Care Team Related Persons Name: GAVIN PRAJAPATI Name: MARY PRAJAPATI Name: JOHN LINO Name: JOHN LINO Insurance Providers Guarantor name: CHIP PRAJAPATI [employer] [facility] Information #: 1 Payer: MEDICARE B Payer Identifier: NA Member Number: [id number] Group Number: NA Subscriber Identifier: NA Relationship to Subscriber: self Coverage Type: NA Coverage Verification Date: NA Telecom: NA Address: NA Health Plan Information #: 2 Payer: [facility] [employer] Payer Identifier: NA Member Number: [id number] Group Number: NA Subscriber Identifier: NA Relationship to Subscriber: self Coverage Type: MEDICAID Coverage Verification Date: NA Telecom: NA Address: NA
--- OUTSIDE RECORDS SUMMARY | 2025-09-22 23:59 | XMS_ITS | Continuity of Care Document ---
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 Role Phone Juliana CAMPOS, Max Guido Primary Care Physician Encounter [facility] Date(s): 08/23/25 - 09/22/25 [facility] Adult [address] [place] [address]- Encounter Type: Triage Allergies, Adverse Reactions, Alerts No Known Allergies Immunizations Given and Recorded Vaccine Date Status Refusal Reason SARS-CoV-2(COVID-19)mRNA-LNP vac([id number]) 07/26/25 Recorded SARS-CoV-2(COVID-19)mRNA-LNP vac([id number]) 06/14/24 Recorded SARS-CoV-2(COVID-19)mRNA-LNP vac([id number]) 07/15/23 Recorded influenza virus vaccine, inactivated 1 [...] preF A-preF B, recombinant 06/14/24 R ecorded [id number] 12y+ bivalent booster vax 06/29/22 Recorded SARS-CoV-2 mRNA (ydzwfvt-jymu-ogtbk) vax 01/22/22 Recorded SARS-CoV-2 (COVID-19) mRNA BNT-162b2 vac 07/20/21 Recorded SARS-CoV-2 (COVID-19) mRNA BNT-162b2 vac 01/07/21 Recorded SARS-CoV-2 (COVID-19) mRNA BNT-162b2 vac 12/17/20 Recorded Pneumococcal Vacc (oldterm) 08/11/15 Given Pneumococcal Vaccine (oldterm) 11/14/06 Given Influenza Inactive (IM) (oldterm) 11/14/06 Given 1Result Comment: [facility]:[id number] Screening checklist reviewed with patient, negative for any contraindications. 2Location History: [facility] Medications acetaminophen/butalbital/caffeine 325 mg-50 mg-40 mg oral tablet See Instructions, TAKE 1 TABLET BY MOUTH EVERY 4 HOURS NEEDED FOR HEADACHE NOT TO EXCEED 6 TABLETS/DAY, # 20 tablet, 5 Refills, Maintenance, 07/25/25 5:08:00 AM EDT, [facility], TAKE 1 TABLETBY MOUTH EVERY 4 [...] 6 Refills, Maintenance, 02/21/25 2:29:00 AM EDT, [facility], 168, cm, 02/18/25 13:44:00 EDT, Height, 50, kg, 02/18/25 13:44:00 EDT, Dry Weight Start Date: 02/21/25 Status: Ordered Medication Dispense Status: Completed Quantity: 90.0 Unit: tablet Total Allowed Fills: 1 Fills Dispensed: 0 atorvastatin 40 mg oral tablet See Instructions, TAKE 1 TABLET BY MOUTH DAILY, # 30 tablet, 5 Refills, Maintenance, 07/24/25 11:02:00 AM EDT, [facility], 168, cm, 07/18/25 16:31:00 EDT, Height, 50, kg, 02/18/25 13:44:00 EDT, Dry Weight Start Date: 07/24/25 Status: Ordered Medication Dispense Status: Completed Quantity: 30.0 Unit: tablet Total Allowed Fills: 6 Fills Dispensed: 0 clopidogrel 75 mg oral tablet 75 mg, 1, tablet, By Mouth, Daily, # 90 tablet, Refills 0, Tot. Refills 0, Maintenance, 08/15/25 4:46:00 PM EST, Route to Pharmacy Electronically, [facility], Partial fill upon patient request ifthe [...] Allowed Fills: 6 Fills Dispensed: 0 ergocalciferol 70629 iu oral capsule 50,000 International_Units, 1, capsule, [...] Replace Required Details, Route to Pharmacy Electronically, [facility],168, cm, 05/29/24 13:49:00 EDT, Height, 53.6, [...] Team Personnel Name: Arcelia Berumen NP Position: [facility] PCO Associate Professional Member Role: Lifetime Consulting Provider Address: [address] [place] [address]- [place] Telecom: Name: Max Andrews MD Position: [facility] Physician - Primary Care Member Role: PCP Address: [address] [place] [id number] Telecom: Care Team Related Persons Name: GAVIN PRAJAPATI Name: MARY PRAJAPATI Name: JOHN LINO Name: JOHN LINO Insurance Providers Guarantor name: CHIP PRAJAPATI [facility] Information #: 1 Payer: MEDICARE B Payer Identifier: NA Member Number: [id number] Group Number: NA Subscriber Identifier: NA Relationship to Subscriber: self Coverage Type: NA Coverage Verification Date: NA Telecom: NA Address: NA Health Plan Information #: 2 Payer: [facility] [employer] Payer Identifier: NA Member Number: [id number] Group Number: NA Subscriber Identifier: NA Relationship to Subscriber: self Coverage Type: MEDICAID Coverage Verification Date: NA Telecom: NA Address: NA
--- OUTSIDE RECORDS SUMMARY | 2025-09-22 23:59 | XMS_ITS | Continuity of Care Document ---
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 Name Role Phone Juliana CAMPOS, Max Guido Primary Care Physician En[place] [facility] [place] Date(s): 08/23/25 - 09/22/25 [facility] [place] Adult [address] [place] [address]- Encounter Type: Triage Allergies, Adverse Reactions, Alerts No Known Allergies Immunizations Given and Recorded Vaccine Date Status Refusal Reason SARS-CoV-2(COVID-19)mRNA-LNP vac([id number]) 07/26/25 Recorded SARS-CoV-2(COVID-19)mRNA-LNP vac([id number]) 06/14/24 Recorded SARS-CoV-2(COVID-19)mRNA-LNP vac([id number]) 07/15/23 Recorded influenza virus vaccine, inactivated 1 [...] preF A-preF B, recombinant 06/14/24 R ecorded [id number] 12y+ bivalent booster vax 06/29/22 Recorded SARS-CoV-2 mRNA (bqvqrfy-wrfl-fdgnt) vax 01/22/22 Recorded SARS-CoV-2 (COVID-19) mRNA BNT-162b2 vac 07/20/21 Recorded SARS-CoV-2 (COVID-19) mRNA BNT-162b2 vac 01/07/21 Recorded SARS-CoV-2 (COVID-19) mRNA BNT-162b2 vac 12/17/20 Recorded Pneumococcal Vacc (oldterm) 08/11/15 Given Pneumococcal Vaccine (oldterm) 11/14/06 Given Influenza Inactive (IM) (oldterm) 11/14/06 Given 1Result Comment: [facility]:[id number] Screening checklist reviewed with patient, negative for any contraindications. 2Location History: [facility] Medications acetaminophen/butalbital/caffeine 325 mg-50 mg-40 mg oral tablet See Instructions, TAKE 1 TABLET BY MOUTH EVERY 4 HOURS NEEDED FOR HEADACHE NOT TO EXCEED 6 TABLETS/DAY, # 20 tablet, 5 Refills, Maintenance, 07/25/25 5:08:00 AM EDT, [facility], TAKE 1 TABLETBY MOUTH EVERY 4 [...] 6 Refills, Maintenance, 02/21/25 2:29:00 AM EDT, [facility], 168, cm, 02/18/25 13:44:00 EDT, Height, 50, kg, 02/18/25 13:44:00 EDT, Dry Weight Start Date: 02/21/25 Status: Ordered Medication Dispense Status: Completed Quantity: 90.0 Unit: tablet Total Allowed Fills: 1 Fills Dispensed: 0 atorvastatin 40 mg oral tablet See Instructions, TAKE 1 TABLET BY MOUTH DAILY, # 30 tablet, 5 Refills, Maintenance, 07/24/25 11:02:00 AM EDT, [facility], 168, cm, 07/18/25 16:31:00 EDT, Height, 50, kg, 02/18/25 13:44:00 EDT, Dry Weight Start Date: 07/24/25 Status: Ordered Medication Dispense Status: Completed Quantity: 30.0 Unit: tablet Total Allowed Fills: 6 Fills Dispensed: 0 clopidogrel 75 mg oral tablet 75 mg, 1, tablet, By Mouth, Daily, # 90 tablet, Refills 0, Tot. Refills 0, Maintenance, 08/15/25 4:46:00 PM EST, Route to Pharmacy Electronically, [facility], Partial fill upon patient request ifthe [...] Allowed Fills: 6 Fills Dispensed: 0 ergocalciferol 25723 iu oral capsule 50,000 International_Units, 1, capsule, [...] Replace Required Details, Route to Pharmacy Electronically, [facility],168, cm, 05/29/24 13:49:00 EDT, Height, 53.6, [...] Personnel Name: Ata JIN, Arcelia Cotton Position: [facility] PCO Associate Professional Member Role: Lifetime Consulting Provider Address: [address] [place] [address]- [place] Telecom: Name: Max Andrews MD Position: [facility] Physician - Primary Care Member Role: PCP Address: [address] [place] [id number] Telecom: Care Team Related Persons Name: GAVIN PRAJAPATI Name: MARY PRAJAPATI Name: JOHN LINO Name: JOHN LINO Insurance Providers Guarantor name: CHIP PRAJAPATI [facility] Information #: 1 Payer: MEDICARE B Payer Identifier: NA Member Number: [id number] Group Number: NA Subscriber Identifier: NA Relationship to Subscriber: self Coverage Type: NA Coverage Verification Date: NA Telecom: NA Address: NA Health Plan Information #: 2 Payer: [facility] [employer] Payer Identifier: NA Member Number: [id number] Group Number: NA Subscriber Identifier: NA Relationship to Subscriber: self Coverage Type: MEDICAID Coverage Verification Date: NA Telecom: NA Address: NA
--- OUTSIDE RECORDS SUMMARY | 2025-09-22 23:59 | XMS_ITS | Continuity of Care Document ---
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 Name Role Phone Juliana CAMPOS, Max Guido Primary Care Physician [phone] Encounter [facility] [place] Date(s): 08/23/25 - 09/22/25 [facility] Adult [address] [place] [address]- Encounter Type: Triage Allergies, Adverse Reactions, Alerts No Known Allergies Immunizations Given and Recorded Vaccine Date Status Refusal Reason SARS-CoV-2(COVID-19)mRNA-LNP vac([id number]) 07/26/25 Recorded SARS-CoV-2(COVID-19)mRNA-LNP vac(zgy328) 06/14/24 Recorded SARS-CoV-2(COVID-19)mRNA-LNP vac(ura732) 07/15/23 Recorded influenza virus vaccine, inactivated 1 [...] preF A-preF B, recombinant 06/14/24 R ecorded [id number] 12y+ bivalent booster vax 06/29/22 Recorded SARS-CoV-2 mRNA (igstfiy-ptsv-ipixi) vax 01/22/22 Recorded SARS-CoV-2 (COVID-19) mRNA BNT-162b2 vac 07/20/21 Recorded SARS-CoV-2 (COVID-19) mRNA BNT-162b2 vac 01/07/21 Recorded SARS-CoV-2 (COVID-19) mRNA BNT-162b2 vac 12/17/20 Recorded Pneumococcal Vacc (oldterm) 08/11/15 Given Pneumococcal Vaccine (oldterm) 11/14/06 Given Influenza Inactive (IM) (oldterm) 11/14/06 Given 1Result Comment: [facility]:[id number] Screening checklist reviewed with patient, negative for any contraindications. 2Location History: [facility] Medications acetaminophen/butalbital/caffeine 325 mg-50 mg-40 mg oral tablet See Instructions, TAKE 1 TABLET BY MOUTH EVERY 4 HOURS NEEDED FOR HEADACHE NOT TO EXCEED 6 TABLETS/DAY, # 20 tablet, 5 Refills, Maintenance, 07/25/25 5:08:00 AM EDT, [facility], TAKE 1 TABLETBY MOUTH EVERY 4 [...] 6 Refills, Maintenance, 02/21/25 2:29:00 AM EDT, [facility], 168, cm, 02/18/25 13:44:00 EDT, Height, 50, kg, 02/18/25 13:44:00 EDT, Dry Weight Start Date: 02/21/25 Status: Ordered Medication Dispense Status: Completed Quantity: 90.0 Unit: tablet Total Allowed Fills: 1 Fills Dispensed: 0 atorvastatin 40 mg oral tablet See Instructions, TAKE 1 TABLET BY MOUTH DAILY, # 30 tablet, 5 Refills, Maintenance, 07/24/25 11:02:00 AM EDT, [facility], 168, cm, 07/18/25 16:31:00 EDT, Height, 50, kg, 02/18/25 13:44:00 EDT, Dry Weight Start Date: 07/24/25 Status: Ordered Medication Dispense Status: Completed Quantity: 30.0 Unit: tablet Total Allowed Fills: 6 Fills Dispensed: 0 clopidogrel 75 mg oral tablet 75 mg, 1, tablet, By Mouth, Daily, # 90 tablet, Refills 0, Tot. Refills 0, Maintenance, 08/15/25 4:46:00 PM EST, Route to Pharmacy Electronically, [facility], Partial fill upon patient request ifthe [...] Allowed Fills: 6 Fills Dispensed: 0 ergocalciferol 84556 iu oral capsule 50,000 International_Units, 1, capsule, [...] Replace Required Details, Route to Pharmacy Electronically, [facility],168, cm, 05/29/24 13:49:00 EDT, Height, 53.6, [...] Personnel Name: Ata JIN, Arcelia Cotton Position: [facility] PCO Associate Professional Member Role: [employer] Consulting Provider Address: [address] [place] [address]- [place] Telecom: Name: Max Andrews MD Position: [facility] Physician - Primary Care Member Role: PCP Address: [address] [place] [address] Telecom: Care Team Related Persons Name: GAVIN PRAJAPATI Name: MARY PRAJAPATI Name: JOHN LINO Name: JOHN LINO Insurance Providers Guarantor name: CHIP PRAJAPATI [facility] Information #: 1 Payer: MEDICARE B Payer Identifier: NA Member Number: [id number] Group Number: NA Subscriber Identifier: NA Relationship to Subscriber: self Coverage Type: NA Coverage Verification Date: NA Telecom: NA Address: NA Health Plan Information #: 2 Payer: [facility] 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
--- OUTSIDE RECORDS SUMMARY | 2025-09-23 04:00 | XMS_ITS ---
Author Organization [facility] Address [address] [place] [address] Care Team Providers Care Tax Manager Name Role Phone Max Andrews Primary Care Provider Lalo Irizarry Jr Unavailable Medications Medication SIG (Take, Route, Frequency, Duration) Notes Start Date End Date Status Vitamin D (Ergocalciferol) 1.25 MG (80603 UT) Capsule Oral; Duration: 84 Active Aspirin 81 81 MG Tablet Delayed Release 1 tablet Orally Once a day; Duration: 30 day(s) 08/01/2024 Active Ibuprofen 600 MG Tablet 1 tablet Orally Three times a day/prn Not-Taking/PRN Omeprazole 40 MG Capsule Delayed Release 1 capsule Orally Once a day; Duration: 30 Not-Taking/PRN Atorvastatin Calcium 40 MG Tablet 1 tablet Orally Once a day; Duration: 30 days Active Labetalol HCl 300 MG Tablet TAKE 1 TABLET BY MOUTH EVERY DAY Oral Twice a day Active Dicyclomine HCl 20 MG Tablet 1 tablet Orally 2-4 times a day; Duration: 30 days 09/23/2025 Active Spironolactone 25 MG Tablet TAKE 1 TABLET BY MOUTH EVERY DAY Oral Once a day Active Dcvqarylco-ZGVW-Odcmbd ne 50-325-40 MG Capsule 1 capsule as needed Orally every 4 hrs as needed Active Morphine Sulfate 1 MG/ML Solution 1 mL as needed Intravenous every 4 hrs Active Plavix 75 MG Tablet 1 tablet Orally Once a day Active Famotidine 40 MG Tablet 1 tablet Orally twice a day; Duration: 30 days 09/23/2025 Active Fluoxetine Active Social History Social History Additional Details Category Social Info Options Details Miscellaneous: Marital status: Occupation: unemployed Vital Signs Temperature 97.2 degrees Fahrenheit 09/23/20 25 Blood pressure systolic 001 mm Hg 09/23/20 25 Blood pressure diastolic 01 mm Hg 025 Height 66 in 09/23/2025 Weight 111.2 lbs 09/23/2025 BMI 17.95 kg/m2 09/23/2025 Encounters Encounter Location Date Provider Diagnosis [facility] [address] [place] [address] 09/23/2025 Lalo Mcgarry Jr Epigastric pain R10.13 and Colon cancer screening Z12.11 Assessments Encounter Date Diagnosis (ICD Code) Assessment Notes Treatment Notes Treatment Clinical Notes Section Notes 09/23/2025 Epigastric pain (ICD-10 - R10.13) I discussed with Chip and her daughter that no hernia has been detected. I offered surgical referral as she did have her gallbladder removed here but I do not feel hernia at any of the incision sites. CT scanning has not shown a hernia and did not detect the small sliding hiatal hernia. We reviewed this in detail today. We have recommended she begin using famotidine and dicyclomine for her upper GI symptoms to see if this helps. She is due for upper endoscopy in December and follow-up colonoscopy. She is advised to stop aspirin and Plavix 1 week before the procedure. 09/23/2025 Colon cancer screening (ICD-10 - Z12.11) I discussed with Chip and her daughter that no hernia has been detected. I offered surgical referral as she did have her gallbladder removed here but I do not feel hernia at any of the incision sites. CT scanning has not shown a hernia and did not detect the small sliding hiatal hernia. We reviewed this in detail today. We have recommended she begin using famotidine and dicyclomine for her upper GI symptoms to see if this helps. She is due for upper endoscopy in December and follow-up colonoscopy. She is advised to stop aspirin and Plavix 1 week before the procedure. Plan Of Treatment Medication Medication Name Sig Start Date Stop Date Notes Dicyclomine HCl 20 MG Tablet 1 tablet Or ally 2-4 times a day; Duration: 30 days 09/23/2025 Famotidine 40 MG Tablet 1 tablet Orally twice a day; Duration: 30 days 09/23/2025 Future Test Test Name Order Date UPPER GI ENDOSCOPY 09/23/2025 COLONOSCOPY 09/23/2025 Next Appt Details Follow Up: prn, Reason: Provider Name:Lalo mustafa Jr, 12/17/2025 07:30:00 AM, [address] [place] [address] , [place], [place], [phone], History and Physical Notes * HPI (History of Present Illness) Category Sub-Category Detail Notes Category Not es New symptom(s) Chip returns today for follow-up. She had been scheduled for outpatient colonoscopy but had to cancel this because of aneurysm repair surgery. In [place], earlier in August. She had graft placement done. Today she complains of upper abdominal pain and a bulge which is intermittent. The pain is constant and not related to GI symptoms. She has had 2 CAT scans which have showed no hernia. She is concerned regarding her endoscopy report from 2022 which showed a small sliding hiatal hernia and focal intestinal metaplasia. 3 to 5-year follow-up was recommended. We reviewed this today. Examination Category Sub-Category Detail Notes Category Not es General Examination On exami nation today, she appears well. Skin is anicteric. Lungs are clear. Heart shows a regular rate and rhythm. Abdomen is thin and soft with no focal masses, guarding, or rebound. There is a pain pump in the right lower quadrant. Upright exam shows no obvious hernia. Progress Notes * EDGAR PRAJAPATIOB:1965 ( 59 yo F)Acc No.[id number]:09/23/2025 Progress Notes Patient: CHIP SAMS Provider: Dax Mcgarry MD :1965 A ge:59 Y S ex:Female Date:09/23/2025 Address:[address] [place] [address] [facility] Pcp:Max Andrews Subjective: * Chief Complaints: * HPI: N ew symptom(s): Chip returns today for follow-up. She had been scheduled for outpatient colonoscopy but had to cancel this because of aneurysm repair surgery. In [place], earlier in August. She had graft placement done. Today she complains of upper abdominal pain and a bulge which is intermittent. The pain is constant and not related to GI symptoms. She has had 2 CAT scans which have showed no hernia. She is concerned regarding her endoscopy report from 2022 which showed a small sliding hiatal hernia and focal intestinal metaplasia. 3 to 5-year follow-up was recommended. We reviewed this today. * Medical History: * Surgical History: * Hospitalization/Major Diagno stic Procedure: * Family History: F ather: , diagnosed with Heart disease. M other: , diagnosed with Heart disease. F amily History Verified.. No family history of liver cancer or colon cancer. * Social History: T obacco Use: T obacco Use/Smoking P atient is a: current smoker , How often do you smoke cigarettes?: every day, How many cigarettes a day do you smoke?: 11-20, How soon after you wake up do you smoke your first cigarette?: within 5 minutes, Are you interested in quitting?: Thinking about quitting.? D rugs/Alcohol: A lcohol Screen P oints: 0, Interpretation: Negative. M iscellaneous: M arital status: . Occupation: unemployed. Social History Verified. * Medications: T aking Fluoxetine , Taking Morphine Sulfate 1 MG/ML Solution 1 mL as needed Intravenous every 4 hrs , Taking Plavix 75 MG Tablet 1 tablet Orally Once a day , Taking Atorvastatin Calcium 40 MG Tablet 1 tablet Orally Once a day , Taking Labetalol HCl 300 MG Tablet TAKE 1 TABLET BY MOUTH EVERY DAY Oral Twice a day , Taking Spironolactone 25 MG Tablet TAKE 1 TABLET BY MOUTH EVERY DAY Oral Once a day , Taking Gmwzubhunf-HWQJ-Zkligrsk 50-325-40 MG Capsule 1 capsule as needed Orally every 4 hrs , Notes to Pharmacist: as needed, Taking Vitamin D (Ergocalciferol) 1.25 MG (56911 UT) Capsule Oral , Taking Aspirin 81 81 MG Tablet Delayed Release 1 tablet Orally Once a day , Not-Taking/PRN Ibuprofen 600 MG Tablet 1 tablet Orally Three times a day/prn , Not-Taking/PRN Omeprazole 40 MG Capsule Delayed Release 1 capsule Orally Once a day , Discontinued MiraLax (colon prep) 17 GM/SCOOP Powder mixed with Gatorade or Crystal Light Orally begin at 5:00 p.m. the day before the procedure , Medication List reviewed and reconciled with the patient * Allergies: Allergies Verified. Objective: * Vitals: W t: 111.2 lbs, Ht: 66 in, BMI:17.95Index, BP: 001/01 mm Hg, Temp: 97.2 F, Ht-cm: 167.64 cm, Wt-k.44 kg. * Examination: G eneral Examination: O n examination today, she appears well. Skin is anicteric. Lungs are clear. Heart shows a regular rate and rhythm. Abdomen is thin and soft with no focal masses, guarding, or rebound. There is a pain pump in the right lower quadrant. Upright exam shows no obvious hernia. Assessment: * Assessment: 1. E pigastric pain - R10.13 (Primary) 2 . C olon cancer screening - Z12.11? I discussed with Chip and misa er daughter that no hernia has been detected. I offered surgical referral as she did have her gallbladder removed here but I do not feel hernia at any of the incision sites. CT scanning has not shown a hernia and did not detect the small sliding hiatal hernia. We reviewed this in detail today. We have recommended she begin using famotidine and dicyclomine for her upper GI symptoms to see if this helps. She is due for upper endoscopy in December and follow-up colonoscopy. She is advised to stop aspirin and Plavix 1 week before the procedure. Plan: * Treatment: 2.?Colon cancer screening?Procedure: COLONOSCOPY (Ordered for 09/23/2025)* Egd and colon scheduled at [facility] on 12-17-2025 at 7:30 a.m Stop aspirin, and plavix one week prior, obtain clearance from Dr. Dunn on [facility]. No spironolactone the day before or morning of the procedure * Procedure Codes: 3 017F COLORECTAL CA SCREEN DOC REV, 1036F TOBACCO NON-USER, G8785 BP SCR NOT PRFRM REC REASON NOS * Preventive Medicine: Counseling: C are goal follow-up plan: B elow Normal BMI Follow-up D ietary education for weight gain, B ME management provided Y es. * Follow Up: p rn Billing Information: * Procedure Codes: 3017F COLORECTAL CA SCREEN DOC REV. 1036F TOBACCO NON-USER. G8785 BP SCR NOT PRFRM REC REASON NOS. * Sign off status: Completed true * Provider: Dax Mcgarry MD Date: 1 11/24/2024 Generated for Maurizio antony/Yuliana/Rain on: 1 11/28/2024 03:24 PM EST
--- OUTSIDE RECORDS SUMMARY | 2025-09-25 23:59 | XMS_ITS | Continuity of Care Document ---
Author Organization [facility] Address [address] [place] [address]- Care Team Providers Care Hat Forming Machine Feeder Name Role Phone Max Andrews MD Primary Care Physician [phone] Encounter [facility] [id number] Date(s): 09/18/25 - 09/25/25 [facility] [address] [place] [address] Encounter Diagnosis H/O endovascular stent graft for abdominal aortic aneurysm(Discharge Diagnosis) - 09/18/25 Attending Physician: Israel Dunn MD Admitting Physician: Israel Dunn MD Referring Physician: Max Andrews MD Encounter Type: Office Visit Allergies, Adverse Reactions, Alerts No Known Allergies Immunizations Given and Recorded Vaccine Date Status Refusal Reason SARS-CoV-2(COVID-19)mRNA-LNP vac(fgp471) 07/26/25 Recorded SARS-CoV-2(COVID-19)mRNA-LNP vac(kgr306) 06/14/24 Recorded SARS-CoV-2(COVID-19)mRNA-LNP vac(nyt739) 07/15/23 Recorded influenza virus vaccine, inactivated 1 [...] preF A-preF B, recombinant 06/14/24 R ecorded [id number] 12y+ bivalent booster vax 06/29/22 Recorded SARS-CoV-2 mRNA (pcvbvts-ujye-buvmo) vax 01/22/22 Recorded SARS-CoV-2 (COVID-19) mRNA BNT-162b2 vac 07/20/21 Recorded SARS-CoV-2 (COVID-19) mRNA BNT-162b2 vac 01/07/21 Recorded SARS-CoV-2 (COVID-19) mRNA BNT-162b2 vac 12/17/20 Recorded Pneumococcal Vacc (oldterm) 08/11/15 Given Pneumococcal Vaccine (oldterm) 11/14/06 Given Influenza Inactive (IM) (oldterm) 11/14/06 Given 1Result Comment: [facility]:[id number] Screening checklist reviewed with patient, negative for [...] Refills, Maintenance, 06/26/25 5:08:00 PM EDT, Aerosol, [facility], Partial fill upon patient request if [...] 6 Refills, Maintenance, 02/21/25 2:29:00 AM EDT, [facility], 168, cm, 02/18/25 13:44:00 EDT, Height, 50, kg, 02/18/25 13:44:00 EDT, Dry Weight Start Date: 02/21/25 Status: Ordered Medication Dispense Status: Completed Quantity: 90.0 Unit: tablet Total Allowed Fills: 1 Fills Dispensed: 0 atorvastatin 40 mg oral tablet See Instructions, TAKE 1 TABLET BY MOUTH DAILY, # 30 tablet, 5 Refills, Maintenance, 07/24/25 11:02:00 AM EDT, [facility], 168, cm, 07/18/25 16:31:00 EDT, Height, 50, kg, 02/18/25 13:44:00 EDT, Dry Weight Start Date: 07/24/25 Status: Ordered Medication Dispense Status: Completed Quantity: 30.0 Unit: tablet Total Allowed Fills: 6 Fills Dispensed: 0 clopidogrel 75 mg oral tablet 75 mg, 1, tablet, By Mouth, Daily, # 90 tablet, Refills 0, Tot. Refills 0, Maintenance, 08/15/25 4:46:00 PM EST, Route to Pharmacy Electronically, [facility], Partial fill upon patient request ifthe [...] Allowed Fills: 6 Fills Dispensed: 0 ergocalciferol 96415 iu oral capsule 50,000 International_Units, 1, capsule, [...] Replace Required Details, Route to Pharmacy Electronically, [facility],168, cm, 05/29/24 13:49:00 EDT, Height, 53.6, [...] Diagnosis Diagnosis Type Effective Dates Health Status Clinical Service Informant H/O endovascular stent graft for abdominal aortic aneurysm Discharge Diagnosis 09/18/25 Vital Signs Most recent to oldest [Reference Range]: 1 Height 167 cm (09/18/25 11:57 AM) Pulse Rate [55-90 bpm] 85 bpm (09/18/25 11:57 AM) Blood Pressure [90-138/55-84 mm Hg] 138/ 80mm Hg (09/18/25 11:57 AM) Mode of Delivery (Oxygen) Room air (09/18/25 11:57 AM) Blood pressure sites Arm, left (09/18/25 11:57 AM) Social History Social History Type Response Smoking Status Former smoker, quit more than 30 days ago entered on: 08/22/25 Sex Sex Representation Female (finding) Patient Care team information Care Team Personnel Name: Ata JIN, Arcelia Cotton Position: [facility] PCO Associate Professional Member Role: Lifetime Consulting Provider Address: [address] [place] [address] Telecom: Name: Max Andrews MD Position: [facility] Physician - Primary Care Member Role: PCP Address: [address] [place] [address] Telecom: Care Team Related Persons Name: GAVIN PRAJAPATI Name: MARY PRAJAPATI Name: JOHN LINO Name: JOHN LINO Insurance Providers Guarantor name: CHIP PRAJAPATI Health Plan Information #: 1 Payer: MEDICARE B Payer Identifier: Member Number: [id number] Group Number: Subscriber Identifier: [id number] Relationship to Subscriber: self Coverage Type: NA Coverage Verification Date: Telecom: Address: [facility] Information #: 2 Payer: [employer]ER [employer] Payer Identifier: PAWAN Member Number: [id number] Group Number: Subscriber Identifier: [id number] Relationship to Subscriber: self Coverage Type: MEDICAID Coverage Verification Date: Telecom: Address:
--- OUTSIDE RECORDS SUMMARY | 2025-09-26 23:59 | XMS_ITS | Continuity of Care Document ---
Author Organization [facility] Prabhakar lt Address [address] [place] [address]- Care Team Providers Care Billet Straightener Name Role Phone Juliana CAMPOS, Max Guido Primary Care Physician [phone] Encounter [facility] [id number] Date(s): 08/27/25 - 09/26/25 [facility] Adult [address] [place] [address]- Encounter Type: Triage Allergies, Adverse Reactions, Alerts No Known Allergies Immunizations Given and Recorded Vaccine Date Status Refusal Reason SARS-CoV-2(COVID-19)mRNA-LNP vac([id number]) 07/26/25 Recorded SARS-CoV-2(COVID-19)mRNA-LNP vac(hsx833) 06/14/24 Recorded SARS-CoV-2(COVID-19)mRNA-LNP vac(pvt142) 07/15/23 Recorded influenza virus vaccine, inactivated 1 [...] preF A-preF B, recombinant 06/14/24 R ecorded [id number] 12y+ bivalent booster vax 06/29/22 Recorded SARS-CoV-2 mRNA ([id number]) vax 01/22/22 Recorded SARS-CoV-2 (COVID-19) mRNA BNT-162b2 vac 07/20/21 Recorded SARS-CoV-2 (COVID-19) mRNA BNT-162b2 vac 01/07/21 Recorded SARS-CoV-2 (COVID-19) mRNA BNT-162b2 vac 12/17/20 Recorded Pneumococcal Vacc (oldterm) 08/11/15 Given Pneumococcal Vaccine (oldterm) 11/14/06 Given Influenza Inactive (IM) (oldterm) 11/14/06 Given 1Result Comment: [facility]:[id number] Screening checklist reviewed with patient, negative for [...] 6 Refills, Maintenance, 02/21/25 2:29:00 AM EDT, [facility], 168, cm, 02/18/25 13:44:00 EDT, Height, 50, kg, 02/18/25 13:44:00 EDT, Dry Weight Start Date: 02/21/25 Status: Ordered Medication Dispense Status: Completed Quantity: 90.0 Unit: tablet Total Allowed Fills: 1 Fills Dispensed: 0 atorvastatin 40 mg oral tablet See Instructions, TAKE 1 TABLET BY MOUTH DAILY, # 30 tablet, 5 Refills, Maintenance, 07/24/25 11:02:00 AM EDT, [facility], 168, cm, 07/18/25 16:31:00 EDT, Height, 50, kg, 02/18/25 13:44:00 EDT, Dry Weight Start Date: 07/24/25 Status: Ordered Medication Dispense Status: Completed Quantity: 30.0 Unit: tablet Total Allowed Fills: 6 Fills Dispensed: 0 clopidogrel 75 mg oral tablet 75 mg, 1, tablet, By Mouth, Daily, # 90 tablet, Refills 0, Tot. Refills 0, Maintenance, 08/15/25 4:46:00 PM EST, Route to Pharmacy Electronically, [facility], Partial fill upon patient request ifthe [...] Allowed Fills: 6 Fills Dispensed: 0 ergocalciferol 95679 iu oral capsule 50,000 International_[employer]its, 1, capsule, [...] Replace Required Details, Route to Pharmacy Electronically, [facility],168, cm, 05/29/24 13:49:00 EDT, Height, 53.6, [...] Cyst Confirmed Active Tobacco abuse Confirmed Active 1Severe, referred to vascular surgeon Social History Social History Type Response Smoking Status Former smoker, quit more than 30 days ago entered on: 08/22/25 Sex Sex Representation Female (finding) Patient Care team information Care Team Personnel Name: Arcelia Berumen NP Position: [facility] PCO Associate Professional Member Role: Lifetime Consulting Provider Address: [address] [place] [address]- OB Telecom: Name: Max Andrews MD Position: [facility] Physician - Primary Care Member Role: PCP Address: [address] [place] [id number] Telecom: Care Team Related Persons Name: GAVIN PRAJAPATI Name: MARY PRAJAPATI Name: JOHN LINO Name: JOHN LINO Insurance Providers Guarantor name: CHIP PRAJAPATI Health Plan Information #: 1 Payer: MEDICARE B Payer Identifier: NA Member Number: [id number] Group Number: NA Subscriber Identifier: NA Relationship to Subscriber: self Coverage Type: NA Coverage Verification Date: NA Telecom: NA Address: NA Health Plan Information #: 2 Payer: [facility] Payer Identifier: NA Member Number: [id number] Group Number: [id number] Subscriber Identifier: NA Relationship to Subscriber: self Coverage Type: MEDICAID Coverage Verification Date: NA Telecom: NA Address: NA
--- NOTE | 2025-09-27 13:48 | HO.NEPHOV ---
Vital Signs 09/27/25 13:53 Height 5 ft 6 in Weight 113 lb 6 oz BMI 18.3 BP 150/90 H Blood Pressure Location Lt brachial Position Sitting Pulse 74 Pulse Source Pulse Oximeter Pulse Oximetry (%) 96 Oxygen Delivery Method Room Air Intake Visit Reasons: 6 MO FU-LVM Hearth Feeder Required: No Accompanied by: Self / Same As Patient Allergies No Known Allergies (No Known Allergies*) Allergy (Verified 09/27/25 13:52) HPI Comments Details: Anastasiia was seen in follow-up of her hypertension. She has quit smoke. She has history of CVA with deficits which had improved and stable. She has been having peripheral arterial disease needing left external iliac plasty and stenting. She has a AAA. She may need fem to below-knee tibio peroneal trunk bypass. She claims to be compliant with her medications. She does not have any chest pain, shortness of breath, paroxysmal nocturnal dyspnea, orthopnea, pedal edema or urinary symptoms. She denies any orthostatic symptoms. She had EVAR for AAA by Dr Dunn in Aug 2025. 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[facility] [place] started lisinopril which she did not take [facility] Medical History (Updated 06/17/25 @ 07:00 by Denise Alejandra RN) GERD (gastroesophageal reflux disease) Bipolar disorder CVA (cerebral vascular accident) Back pain Seasonal allergies Migraines Opioid dependence HTN (hypertension) Surgical History (Updated 06/17/25 @ 07:10 by Denise Alejandra RN) Hx of surgical procedure (~10/27/17) Status post insertion of iliac artery stent (~11/16/23) Hx of cholecystectomy (~2016) Hx of varicose vein stripping Hx of breast augmentation Hx of appendectomy History of esophagogastroduodenoscopy (EGD) H/O colonoscopy (~2018) Social History Patient Tobacco Use Status: Current everyday Tobacco user Cigarette Packs Per Day: 1 Cigarettes Per Day: 7 Years Smoked: 48 Review of Systems Const All systems reviewed & are unremarkable except as noted in HPI and below Physical Exam Const General: comfortable and no acute distress Orientation/consciousness: patient oriented x3 HEENT Head: Yes normocephalic Mouth: Normal oral and palatal mucosa present Eyes EOM: EOMs intact bilaterally Neck Neck: Yes supple Resp Auscultation: clear to auscultation bilaterally Cardio Jugular venous distension: no JVD Rate: regular rate GI Palpation (GI): Soft to palpation Auscultation: normal bowel sounds General: Yes no CVA tenderness Back/Spine/Pelvis Back: no CVA tenderness Skin General skin exam: no rashes or lesions noted Neuro General: patient oriented x3 and moves all extremities Extrem General: Yes no pedal edema Results Reviewed Nephrology Results: Sodium, (135-145) 137 mmol/L 07/12/25 Potassium, (3.3-5.1) 3.9 mmol/L 07/12/25 Chloride, (96-108) 102 mmol/L 07/12/25 Carbon Dioxide, (22-29) 29 mmol/L 07/12/25 BUN, (9-16) 14 mg/dL 07/12/25 Creatinine, (0.5-1.4) 0.67 mg/dL 07/12/25 Calcium, (8.4-10.2) 9.4 mg/dL 07/12/25 Assessment & Plan Assessment & Plan (1) HTN (hypertension): Code(s): I10 - Essential (primary) hypertension Category: Medical Qualifiers: Hypertension type: primary hypertension Qualified Code(s): I10 - Essential (primary) hypertension Plan Anastasiia has hypertension over 30 years. She had issues with hydrochlorothiazide. She claims to have allergy to amlodipine. She has not known to have any low serum potassium, hypercalcemia or thyroid disorders. Her renal functions have been normal. She is known to have vascular disease. She has peripheral arterial disease needing left iliac artery stenting. She also had CVA in the past. She is currently on spironolactone 25 mg daily.. She can continue Labetalol @ 400 mg bid. She claims to be on a low-sodium diet. She should maintain good hydration. Doppler of renal arteries did not show any significant renal artery stenosis in the past. All questions answered. Follow-up appointment given Medications: Changed From labetalol 200 mg (2 x 100 mg) PO BID 90 days 360 tabs 4RF To labetalol 400 mg (2 x 200 mg) PO BID 360 tabs 4RF 90 days Coding Level of Care Code Est Pt Level 4 (02517) Diagnoses Primary hypertension I10 Hypertension type: primary hypertension
[2025-09-27 13:53] VITALS: BP 150/90; PULSE 74; O2SAT 96; BMI 18.3
--- OUTSIDE RECORDS SUMMARY | 2025-09-27 15:25 | XMS_ITS | Encounter Summary ---
Author Organization [facility] Address [address] [place] [address] Phone Care Team Providers Care Steam Table Attendant Name Role Phone Unknown, Unknown Primary Care [...] Expiration Date Visits Re quested Visits Authorized [id number] Closed 01/03/2023 1 1 Encounter Details Date Type Department Care Team (Latest Contact Info) Description 01/03/2023 Transcribe Orders Virtual Department [address] [place] [address] Dagmar Dyson NP History of stroke (Primary [...] (Latest Contact Info) Description 10/15/2025 Procedure [facility] [address] [place] [address] 10/15/2025 1:00 PM EST Hospital Encounter [facility] [address] [place] [address] Guillermo Malave MD [address] [place] [address] [email or web address] 10/15/2025 1:00 PM EST - 10/15/2025 1:51 PM EST Surgery [facility] Interventional Radiology [address] [place] [address] Guillermo Malave MD [address] [place] [address] [email or web address] Reprogram and Refill Pain Pump [...] facet arthropathy with at least moderate left [id number] root foraminal stenosis. C5-C6: Moderate size posterior [...] right greater than left C5-6level. Dagmar Dyson HARNESS INSTALLER IMG MR XSPECIALTY Fi nal Result documented [...] limbs documented in this encounter Care Teams Steam Table Attendant Relationship Specialty Start Date End Date Unknown, Unknown, PCP - General 01/05/23 07/20/23 Max Andrews MD [address] [place], [place] [phone] PCP - General Family Medicine 07/21/23 documented as of this encounter Additional Source Comments The information contained in this document represents components of the legal health record. It is not the complete legal health record.[facility]
--- OUTSIDE RECORDS SUMMARY | 2025-09-27 15:25 | XMS_ITS | Encounter Summary ---
Author Organization [facility] Address [address] [place] [address] [place] [address] Phone Care Team Providers Care Adobe Layer Helper Name Role Phone Max Andrews MD Primary Care Provider + Encounter Details Date Type Department Care Team (Late st Contact Info) Description 12/22/2023 Procedure Pass [facility] [address] [place] [address] Social History Tobacco Use Types Packs/Day Years [...] (Latest Contact Info) Description 10/15/2025 Procedure Pass [facility] [address] [place] [address] 10/15/2025 1:00 PM [facility] Hospital Encounter [facility] [employer] [facility] [address] [place] [address] Guillermo Malave MD [address] [place] [address] [email or web address] 10/15/2025 1:00 PM EST - 10/15/2025 1:51 PM EST [facility] [address] [place] [address] Guillermo Malave MD [address] [place] [address] [email or web address] Reprogram and Refill Pain Pump documented as of this encounter Visit Diagnoses Not on filedocumented in this encounter Care Teams Adobe Layer Helper Relationship Specialty Start Date End Date Max Andrews MD [address] [place] [address] PCP - General Family Medicine 07/21/23 documented as of this encounter Additional Source Comments The information contained in this document represents components of the legal health record. It is not the complete legal health record.[facility]
--- OUTSIDE RECORDS SUMMARY | 2025-09-27 15:25 | XMS_ITS | Clinical Summary ---
Author Organization [facility] Prior to 03/09/[address] [place] [address] Care Team Providers Care Talkback Host Name Role Phone Max Andrews MD Primary Care Provider +1- [phone] Allergies Active Allergy Reactions Criticality Noted Date [...] tablet, 5 Refills, Maintenance, 08/10/23 11:06:00 EDT, [facility], TAKE 1 TABLET BY MOUTH EVERY [...] history exists Influenza Vaccine (#1) 2025 , 06/29/2022, 07/21/2020, Additional history exists RSV Adult > 60+ Yrs or (1 - 1-dose 75+ series) 2038 Hepatitis B Vaccines Aged Out No long er eligible based on patient's age to complete this topic RSV Ped < 20 months Aged Out No longe r eligible based on patient's age to complete this topic Care Teams Talkback Host Relationship Specialty Start Date End Date Max Andrews MD [address] [place] [address] PCP - General Family Medicine 08/23/23
--- OUTSIDE RECORDS SUMMARY | 2025-09-27 15:25 | XMS_ITS | Encounter Summary ---
Author Organization [facility] Address [address] [place] [address] Phone Care Team Providers Care Psychologist Military Personnel Name Role Phone Max Andrews MD Primary Care Provider + Encounter Details Date Type Department Care Team (Late st Contact Info) Description 04/09/2025 Procedure Pass [facility] [address] [place] [address] Social History Tobacco Use Types Packs/Day Years [...] (Latest Contact Info) Description 10/15/2025 Procedure Pass [facility] [address] [place] [address] 10/15/2025 1:00 PM EST Hospital Encounter [facility] [address] [place] [address] Guillermo Malave MD [address] [place] [address] [email or web address] 10/15/2025 1:00 PM EST - 10/15/2025 1:51 PM EST Surgery [facility] [address] [place] [address] Guillermo Malave MD [address] [place] [address] [email or web address] Reprogram and Refill Pain Pump documented as of this encounter Visit Diagnoses Not on filedocumented in this encounter Care Teams Psychologist Military Personnel Relationship Specialty Start Date End Date Max Andrews MD [address] [place] [address] PCP - General Family Medicine 07/21/23 documented as of this encounter Additional Source Comments The information contained in this document represents components of the legal health record. It is not the complete legal health record.[facility]
--- OUTSIDE RECORDS SUMMARY | 2025-09-27 15:25 | XMS_ITS | Encounter Summary ---
Author Organization [facility] Address [address] [place] [address] [place] [address] Phone Care Team Providers Care Financing Analyst Name Role Phone Unknown, Unknown Primary Care Provider Max Patel MD Primary Care Provider + Encounter Details Date Type Department Care Team (Late st Contact Info) Description 03/10/2023 Procedure Pass [email or web address] [address] [place] [address] Social History Tobacco Use Types Packs/Day Years [...] (Latest Contact Info) Description 10/15/2025 Procedure Pass [email or web address] [address] [place] [address] 10/15/2025 1:00 PM [facility] Hospital Encounter [facility] [employer] [facility] [address] [place] [address] Guillermo Malave MD [address] [place] [address] [email or web address] 10/15/2025 1:00 PM EST - 10/15/2025 1:51 PM EST [facility] [address] [place] [address] Guillermo Malave MD [address] [place] [address] [email or web address] Reprogram and Refill Pain Pump documented as of this encounter Visit Diagnoses Not on filedocumented in this encounter Care Teams Financing Analyst Relationship Specialty Start Date End Date Unknown, Unknown, MD PCP - General 01/05/23 07/20/23 Max Andrews MD [address] [place] [address] PCP - General Family Medicine 07/21/23 documented as of this encounter Additional Source Comments The information contained in this document represents components of the legal health record. It is not the complete legal health record.[facility]
--- OUTSIDE RECORDS SUMMARY | 2025-09-27 15:25 | XMS_ITS | Clinical Summary ---
Author Organization [facility] Address [address] [place] [phone] Care Team Providers Care School Community Relations Coordinator Name Role Phone Max Andrews MD Primary Care Provider +1- [phone] Immunizations Immunization Administration Dates Next Due Pfizer SARS-CoV-2 COVID-19, mRNA, LNP-S, preservative free 01/22/2022,07/20/2021,01/07/2021,2020 Surgical History Surgery Date Site/Laterality Comments CHOLECYSTECTOMY PROCEDURE:CHOLECYSTECTOMY APPENDECTOMY PROCEDURE:APPENDECTOMY OTHER SURGICAL HISTORY PROCEDURE:pain pump OTHER SURGICAL HISTORY 2023 N/A PROCEDURE:endovascular intervension Medical History Medical History Date Comments Stroke (CMS/HCC V24, CMS/HCC V28) DX:Stroke (HCC) Hypertension DX:Hypertension Social History Tobacco [...] Documents on File Type Date Recorded 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
--- OUTSIDE RECORDS SUMMARY | 2025-09-27 15:25 | XMS_ITS | Encounter Summary ---
Author Organization [facility] Address [address] [facility] [address] [place] [address] Phone Care Team Providers Care Automation Engineer Name Role Phone Max Andrews MD Primary Care Provider + Encounter Details Date Type Department Care Team (Late st Contact Info) Description 09/05/2024 Procedure Pass [facility] [address] [place] [address] Social History Tobacco Use Types Packs/Day Years [...] (Latest Contact Info) Description 10/15/2025 Procedure Pass [facility] Radiology [address] [place] [address] 10/15/2025 1:00 PM EST Hospital Encounter [facility]iology [address] [place] [address] Guillermo Malave MD [address] [place] [address] [email or web address] 10/15/2025 1:00 PM EST - 10/15/2025 1:51 PM EST Surgery [facility] Radiology [address] [place] [address] Guillermo Malave MD [address] [place] [address] [email or web address] Reprogram and Refill Pain Pump documented as of this encounter Visit Diagnoses Not on filedocumented in this encounter Care Teams Automation Engineer Relationship Specialty Start Date End Date Max Andrews MD [address] [place] [address] PCP - General Family Medicine 07/21/23 documented as of this encounter Additional Source Comments The information contained in this document represents components of the legal health record. It is not the complete legal health record.[facility]
--- OUTSIDE RECORDS SUMMARY | 2025-09-27 15:25 | XMS_ITS | Encounter Summary ---
Author Organization [facility] Address [address] [place] [address] [place] [address] Phone Care Team Providers Care Director Of Sales Marketing Name Role Phone Max Andrews MD Primary Care Provider + Encounter Details Date Type Department Care Team (Late st Contact Info) Description 04/26/2024 Procedure Pass [email or web address]iology [address] [place] [address] Social History Tobacco Use Types Packs/Day Years [...] (Latest Contact Info) Description 10/15/2025 Procedure Pass [email or web address] [address] [place] [address] 10/15/2025 1:00 PM [facility] Hospital Encounter [facility] [employer] [facility] [address] [place] [address] Guillermo Malave MD [address] [place] [address] [email or web address] 10/15/2025 1:00 PM EST - 10/15/2025 1:51 PM EST [facility] [address] [place] [address] Guillermo Malave MD [address] [place] [address] [email or web address] Reprogram and Refill Pain Pump documented as of this encounter Visit Diagnoses Not on filedocumented in this encounter Care Teams Director Of Sales Marketing Relationship Specialty Start Date End Date Max Andrews MD [address] [place] [phone] PCP - General Family Medicine 07/21/23 documented as of this encounter Additional Source Comments The information contained in this document represents components of the legal health record. It is not the complete legal health record.[facility]
--- OUTSIDE RECORDS SUMMARY | 2025-09-27 15:25 | XMS_ITS | Encounter Summary ---
Author Organization [facility] Address [address] [facility] [address] [place] [address] Phone Care Team Providers Care Hand Former Name Role Phone Max Andrews MD Primary Care Provider + Encounter Details Date Type Department Care Team (Late st Contact Info) Description 08/31/2024 Procedure Pass [facility] [address] [place] [address] Social History Tobacco Use Types Packs/Day Years [...] (Latest Contact Info) Description 10/15/2025 Procedure Pass [facility] Interventional Radiology [address] [place] [address] 10/15/2025 1:00 PM EST Hospital Encounter [facility] Interventional Radiology [address] [place] [address] Guillermo Malave MD [address] [place] [address] [email or web address] 10/15/2025 1:00 PM EST - 10/15/2025 1:51 PM EST Surgery [facility] Cardiovascular And Interventional Radiology [address] [place] [address] Guillermo Malave MD [address] [place] [address] [email or web address] Reprogram and Refill Pain Pump documented as of this encounter Visit Diagnoses Not on filedocumented in this encounter Care Teams Hand Former Relationship Specialty Start Date End Date Max Andrews MD [address] [place] [address] PCP - General Family Medicine 07/21/23 documented as of this encounter Additional Source Comments The information contained in this document represents components of the legal health record. It is not the complete legal health record.[facility]
--- OUTSIDE RECORDS SUMMARY | 2025-09-27 15:25 | XMS_ITS | Encounter Summary ---
Author Organization [facility] Address [address] [facility] [address] [place] [address] Phone Care Team Providers Care Desk Officer Name Role Phone Max Andrews MD Primary Care Provider + Encounter Details Date Type Department Care Team (Latest Contact Info) Description 11/08/2024 Transcribe Orders Virtual Department [address] [place] [address] Israel Dunn MD [address] [address] Other diseases of mediastinum, not elsewhere classified [...] (Latest Contact Info) Description 10/15/2025 Procedure Pass [facility] Cardiovascular And Interventional Radiology [address] [place] [address] 10/15/2025 1:00 PM EST Hospital Encounter [facility] Cardiovascular And Interventional Radiology [address] [place] [address] Guillermo Malave MD [address] [place] [address] [email or web address] 10/15/2025 1:00 PM EST - 10/15/2025 1:51 PM EST Surgery [facility] Cardiovascular And Interventional Radiology [address] [place] [address] Guillermo Malave MD [address] [place] [address] [email or web address] Reprogram and Refill Pain Pump documented as of this encounter Visit Diagnoses Diagnosis Other diseases of mediastinum, not elsewhere classified- Primary documented in this encounter Care Teams Desk Officer Relationship Specialty Start Date End Date Max Andrews MD [address] [place] [address] PCP - General Family Medicine 07/21/23 documented as of this encounter Additional Source Comments The information contained in this document represents components of the legal health record. It is not the complete legal health record.[facility]
--- OUTSIDE RECORDS SUMMARY | 2025-09-27 15:25 | XMS_ITS | Encounter Summary ---
Author Organization [facility] Address [address] [place] [address] [place] [address] Phone Care Team Providers Care Line Maintenance Name Role Phone Unknown, Unknown Primary Care Provider Max Patel MD Primary Care Provider + Encounter Details Date Type Department Care Team (Late st Contact Info) Description 01/03/2023 Procedure Pass [facility], [address] [address] Social History Tobacco Use Types Packs/Day Years [...] (Latest Contact Info) Description 10/15/2025 Procedure Pass [facility] Cardiovascular And Interventional Radiology [address] [place] [address] 10/15/2025 1:00 PM EST Hospital Encounter [facility] Cardiovascular And Interventional Radiology [address] [place] [address] Guillermo Malave MD [address] [place] [address] [email or web address] 10/15/2025 1:00 PM EST - 10/15/2025 1:51 PM EST Surgery [facility] Cardiovascular And Interventional Radiology [address] [place] [address] Guillermo Malave MD [address] [place] [address] [email or web address] Reprogram and Refill Pain Pump documented as of this encounter Visit Diagnoses Not on filedocumented in this encounter Care Teams Line Maintenance Relationship Specialty Start Date End Date Unknown, Unknown, MD PCP - General 01/05/23 07/20/23 Max Andrews MD [address] [place] [address] PCP - General Family Medicine 07/21/23 documented as of this encounter Additional Source Comments The information contained in this document represents components of the legal health record. It is not the complete legal health record.[facility]
--- OUTSIDE RECORDS SUMMARY | 2025-09-27 15:25 | XMS_ITS | Patient Health Record ---
Author Organization [facility] Address [address] [place] [address] Care Team Providers Care Fuse Coiler Name Role Phone Max Andrews Primary Care Provider Lalo Irizarry Jr Unavailable [phone] Allergies No Known Allergies Reason For Referral No Information Medications Medication SIG (Take, Route, Frequency, Duration) Notes Start Date End Date Status Morphine Sulfate 1 MG/ML Solution 1 mL as needed Intravenous every 4 hrs Active Plavix 75 MG Tablet 1 tablet Orally Once a day Active Atorvastatin Calcium 40 MG Tablet 1 tablet Orally Once a day; Duration: 30 days Active Famotidine 40 MG Tablet 1 tablet Orally twice a day; Duration: 30 days 09/23/2025 Active Labetalol HCl 300 MG Tablet TAKE 1 TABLET BY MOUTH EVERY DAY Oral Twice a day Active Dicyclomine HCl 20 MG Tablet 1 tablet Orally 2-4 times a day; Duration: 30 days 09/23/2025 Active Spironolactone 25 MG Tablet TAKE 1 TABLET BY MOUTH EVERY DAY Oral Once a day Active Lxaqblsxpv-QYSV-Vcomhp ne 50-325-40 MG Capsule 1 capsule as needed Orally every 4 hrs as needed Active Vitamin D (Ergocalciferol) 1.25 MG (91681 UT) Capsule Oral; Duration: 84 Active Aspirin 81 81 MG Tablet Delayed Release 1 tablet Orally Once a day; Duration: 30 day(s) 08/01/2024 Active Ibuprofen 600 MG Tablet 1 tablet Orally Three times a day/prn Not-Taking/PRN Omeprazole 40 MG Capsule Delayed Release 1 capsule Orally Once a day; Duration: 30 Not-Taking/PRN Fluoxetine Active Immunizations Vaccine Route Administration Date Status Comme nts Flu vaccine no Preserv 3 and > Unknown 07/20/2016 Admin istered Influenza Unknown 07/10/2018 Administered Influenza Unknown 07/27/2022 Administered Influenza Unknown 07/11/2024 Administered Influenza Unknown 07/19/2025 Administered Social History Social History Additional Details Category Social Info Options Details Miscellaneous: Marital status: Occupation: unemployed Problems Problem Type SNOMED Code ICD Code Onset Dates Problem Status W/U Status Risk Notes Problem Colon cancer screening (930581408) Colon cancer screening (Z12.11) Active confirmed Problem Epigastric pain (53586412) Epigastric pain (R10.13) Active confirmed Problem Gastro-esophageal reflux disease without esophagitis (385200258) Gastro-esophageal reflux disease without esophagitis (K21.9) Active confirmed Problem Gastroesophageal reflux disease without esophagitis (395644481) Gastroesophageal reflux disease without esophagitis (K21.9) Active confirmed Problem Long-term current use of antiplatelet drug (124235524224907) Long-term use of aspirin therapy (Z79.82) Active confirmed Vital Signs Temperature 97.2 degrees Fahrenheit 09/23/2025 Blood pressure diastolic 01 mm Hg 09/23/2025 Height 66 in 09/23/2025 Blood pressure systolic 001 mm Hg 09/23/2025 Weight 111.2 lbs 09/23/2025 BMI 17.95 kg/m2 09/23/2025 Encounters Encounter Location Date Provider Diagnosis [facility] [address] [place] [phone] 09/23/2025 Lalo Mcgarry Jr Epigastric pain R10.13 and Colon cancer screening Z12.11 [facility] [address] [place] [phone] 11/19/2024 Lalo Mcgarry Jr [facility] [address] [place] [phone] 06/17/2025 Lalo Mcgarry Jr [facility] [address] [place] [phone] 08/23/2025 Lalo Mcgarry Jr [facility] [address] [place] [phone] 09/23/2025 Lalo Mcgarry Jr Assessments Encounter Date Diagnosis (ICD Code) Assessment Notes Treatment Notes Treatment Clinical Notes Section Notes 09/23/2025 Colon cancer screening (ICD-10 - Z12.11) [...] Plavix 1 week before the procedure. 09/23/2025 Epigastric pain (ICD-10 - R10.13) I [...] week before the procedure. Plan Of Treatment Future Test Test Name Order Date COLONOSCOPY 10/17/2014 UPPER GI ENDOSCOPY 09/14/2018 COLONOSCOPY 09/14/2018 UPPER GI ENDOSCOPY 12/13/2022 COLONOSCOPY 08/01/2024 UPPER GI ENDOSCOPY 09/23/2025 COLONOSCOPY 09/23/2025 Next Appt Details Provider Name:Lalo mustafa Jr, 12/17/2025 07:30:00 AM, [address] [place] [address] , [place], [place], [id number], Insurance Providers Payer Name Payer Address Payer Phone Subscriber Number Group Number Insured Name Patient Relationship to Insured Coverage Start Date Coverage End Date [place] OF [place] [address] [place] [id number] ANALISA PRAJAPATIY Self - patient is the insured MEDICAID OF [facility] [address] [place] [address] [id number] ANALISA PRAJAPATIY Self - patient is the insured Medical [...] Cholecystectomy 2017 Left external iliac stent 11/16/2023 AAA 08/2025
--- OUTSIDE RECORDS SUMMARY | 2025-09-27 15:25 | XMS_ITS | Clinical Summary ---
Author Organization [facility] Address [address] [place] [address] Phone Care Team Providers Care Director Employee Communications Name Role Phone Max Andrews MD Primary Care Provider [phone]- [phone] Allergies Active Allergy Reactions Criticality Noted Date [...] arachnoid cyst 11/18/20212021 Hypertensive disorder 05/15/20212021 Tobacco use disorder 12/03/2020 022 Immunizations Immunization Administration Dates Next Due Influenza Whole 11/14/2006 [...] Colorectal Cancer Screening: Sigmoidoscopy 2012 Pneumococcal Vaccine: 50+ Years (3 of 3 - PCV) 08/11/2016 08/11/2015, 11/14/2006 Influenza Vaccine (#1) 2025 11/14/2006 Pneumococcal Vaccine: Peds ( 0 to 5 Years) and At-Risk Patients (6 to 49 Years) Discontinued 08/11/2015, 11/14/2006 Hepatitis B Vaccine Aged Out No longe r eligible based on patient's age to complete this topic Insurance Medicare Medicaid [place] Medicare Medicaid [place] Care Teams Director Employee Communications Relationship Specialty Start Date End Date Max Andrews MD [address] [place] [phone] PCP - General 10/20/20
--- OUTSIDE RECORDS SUMMARY | 2025-09-27 15:25 | XMS_ITS | Patient Health Record ---
Author Organization [facility] Address [address] [place] [address] Care Team Providers Care Coating Machine Operator Helper Name Role Phone Max Andrews MD Primary Care Provider Lisa ratliff Tara Powell Unavailable [phone] Reason For Referral No Information Medications Medication [...] Problem Acquired hammer toe of right foot (4491924694620 105) Other hammer toe(s) (acquired), right foot (M20.41) Active confirmed Problem Acquired hammer toe of left foot (6003391173433 103) Other hammer toe(s) (acquired), left foot (M20.42) Active confirmed Problem Smoker (01902830) Smoker (F17.200) Active confirmed Plan Of Treatment Pending Test Test Name Order Date [id number] NAIL, 1-5 07/19/2019 32527- Debride <25 sq cm 07/19/2019 66112 I&D ABSCESS- SIMPLE,SINGLE 019 Insurance Providers Payer Name Payer Address Payer Phone Subscriber Number Group Number Insured Name Patient Relationship to Insured Coverage Start Date Coverage End Date Medicare National [employer] [address] [place] [address] [id number] Anastasiia Chavez Self - patient is the insured Medical (General) History Medical History History ICD Code Anxiety asthma Back,Hip,and Knee pain Depression Fibromyalgia Gall bladder problems Headaches/Migraines High blood pressure Numbness Sinus conditions Stroke Chicken pox Surgical History Surgery Date(Month/Year) Vericose veins stripped 1993 Pain pump 10/27/17 Gall bladder removal 01/24 tooth extraction
--- OUTSIDE RECORDS SUMMARY | 2025-09-27 15:25 | XMS_ITS | Clinical Summary ---
Author Organization [facility] Address [address] [facility] [address] [place] [address] Phone Care Team Providers Care Television Program Director Name Role Phone Max Andrews MD Primary [...] Take 75 mg by mouth daily. Active Social History Tobacco Use Types Packs/Day [...] (Latest Contact Info) Description 10/15/2025 Procedure Pass [facility] Cardiovascular And Interventional Radiology [address] [place] [address] 10/15/2025 1:00 PM EST Hospital Encounter [facility] Cardiovascular And Interventional Radiology [address] [place] [address] Guillermo Malave MD [address] [place] [address] [email or web address] 10/15/2025 1:00 PM EST - 10/15/2025 1:51 PM EST Surgery [facility] Cardiovascular And Interventional Radiology [address] [place] [address] Guillermo Malave MD [address] [place] [address] [place] [address] [email or web address] Reprogram and Refill Pain Pump Health [...] this topic Medical Devices Implanted Type Area Rod Drawer Device Identifier Shelf Expiration Date Model / Serial / Lot Pump-10/27/2017 Implanted:2017 by Mikayla Marin MD (Quantity not on file) Pump [id number] / [id number] / Insurance [employer] MEDICARE PART A & B [facility] MEDICARE PART A & B [facility] [place]IC[place] B [facility] MEDICARE PART A & B Care Teams Television Program Director Relationship Specialty Start Date End Date Max Andrews MD [address] [place] [address] PCP - General Family Medicine 07/21/23 Additional Source Comments The information contained in this document represents components of the legal health record. It is not the complete legal health record.[facility]
--- OUTSIDE RECORDS SUMMARY | 2025-09-27 15:26 | XMS_ITS | Encounter Summary ---
Author Organization [facility] Address [address] [place] [address] [place] [address] Phone Care Team Providers Care Sales Operations Analyst Name Role Phone Max Andrews MD Primary Care Provider + Encounter Details Date Type Department Care Team (Late st Contact Info) Description 08/03/2023 Procedure Pass [facility] Cardiovascular And Interventional Radiology [address] [place] [address] Social History Tobacco Use Types Packs/Day Years [...] (Latest Contact Info) Description 10/15/2025 Procedure Pass [facility] Cardiovascular And Interventional Radiology [address] [place] [address] 10/15/2025 1:00 PM [facility] Hospital Encounter [facility]iology [address] [place] [address] Guillermo Malave MD [address] [place] [address] [email or web address] 10/15/2025 1:00 PM EST - 10/15/2025 1:51 PM EST [facility] [address] [place] [address] Guillermo Malave MD [address] [place] [address] [email or web address] Reprogram and Refill Pain Pump documented as of this encounter Visit Diagnoses Not on filedocumented in this encounter Care Teams Sales Operations Analyst Relationship Specialty Start Date End Date Max Andrews MD [address] [place] [address] PCP - General Family Medicine 07/21/23 documented as of this encounter Additional Source Comments The information contained in this document represents components of the legal health record. It is not the complete legal health record.[facility]
== END 2025-09-27 14:14 | disposition home or self-care (01) ==
LOC: HO.HKA 13:45
PROVIDERS: PCP Family Medicine; Visit Provider Internal Medicine Nephrology
DX: I10 Essential (primary) hypertension (principal)
CPT/HCPCS: 99214

== ENCOUNTER → 2025-09-27 13:44 | Outpatient (BNVA) | payer MEDICARE, MEDICAID, SELFPAY | PROVIDERS: PCP Family Medicine; Visit Provider Internal Medicine Nephrology | DX: I10 Essential (primary) hypertension (principal); Z87.891 Personal history of nicotine dependence | CPT/HCPCS: 99212 ==